=== PATIENT | male | born 1950 | race Caucasian/White ===

== ENCOUNTER → 2024-03-06 15:54 | Outpatient (CLI) | payer MEDICARE, BC, SELFPAY ==
--- NOTE | 2024-03-06 15:54 | DI.US.S_ITS ---
PROCEDURE: US ABD AORTA ANEURYSM SCREEN INDICATIONS: SCREENING; HX SMOKING TECHNIQUE: Real time scanning was performed of the aorta and iliac arteries, with image documentation. COMPARISON: None. FINDINGS: Aorta: The proximal aorta is not seen. Mid-aorta measures 1.8 cm. Distal aortic diameter is 1.8 cm. Iliac arteries: Right common iliac artery measures 1.1 cm. Left common iliac artery measures 1.1 cm. IMPRESSION: Negative for aneurysm. Dictated by: Davidson Ortiz M.D. on 03/06/2024 at 16:28 Approved by: Davidson Ortiz M.D. on 03/06/2024 at 16:28
== END ==
PROVIDERS: Family Provider Family Medicine; PCP Family Medicine; Referring Provider Family Medicine; Visit Provider Family Medicine
DX: Z13.6 Encounter for screening for cardiovascular disorders (principal); Z87.891 Personal history of nicotine dependence
CPT/HCPCS: 76706

== ENCOUNTER → 2024-04-02 12:11 | Outpatient (CLI) | payer MEDICARE, BC, SELFPAY ==
--- NOTE | 2024-04-02 12:13 | DI.RAD.S_ITS ---
PROCEDURE: XR T AND L SPINE 2 TO 3 VIEWS INDICATIONS: Spinal Chord Stimulator lead position check TECHNIQUE: 2 views acquired of the thoracolumbar spine. COMPARISON: [facility] Joseph Turner, CR, XR LUMBAR SPINE 2 OR 3 VIEWS, 03/05/2024, 15:09. FINDINGS: Bones: Stable appearance of long segment spinal fusion of the lumbar spine extending from L2 through S1. No evidence hardware failure or loosening. The lower margins of the fusion hardware is incompletely imaged on the lateral view. Moderate degenerative changes at L1-2 not significantly changed. Stable appearance of multiple arthrodesis screws of the bilateral sacroiliac joints. No acute fractures or dislocations. Visualized inferior ribs appear intact. No suspicious bony lesions. Soft tissues: No suspicious soft tissue calcifications. Neurostimulator device generator projects over the right posterolateral lower back. Electrodes appear intact along their visualized course. Distal tip of spinal cord stimulator terminates superiorly at approximately the inferior endplate of T6. IMPRESSION: Neurostimulator device and leads appear intact along their visualized course with distal tip projecting over the inferior aspect of the T6 vertebral body. Dictated by: Jean Claude Mckeon M.D. on 04/02/2024 at 16:00 Approved by: Jean Claude Mckeon M.D. on 04/02/2024 at 16:04
== END ==
LOC: LAB 12:12
PROVIDERS: Family Provider Family Medicine; PCP Family Medicine; Referring Provider Family Medicine; Visit Provider Family Medicine
DX: Z98.890 Other specified postprocedural states (principal); M54.50 Low back pain, unspecified; G89.29 Other chronic pain
CPT/HCPCS: 72082

== ENCOUNTER 2024-06-03 13:37 | Outpatient (CLI) | payer MEDICARE, BC, SELFPAY ==
[2024-06-03] VITALS (8 sets, daily range): BP systolic 126–161; BP diastolic 60–86; PULSE 53–69; RESP 9–18; TEMP 36.8; O2SAT 96–98
[2024-06-03] MEDS: MIDAZOLAM 2 MG/2 ML VIAL 1 MG IV (13:58)
--- NOTE | 2024-06-03 14:00 | DI.RAD.S_ITS ---
PROCEDURE: PAIN L INTERLAMINAR/CAUDAL INJ INDICATIONS: Caudal LAMBERT COMPARISON: None. FINDINGS: Fluoroscopic spot filming was performed to verify placement of spinal needles at the low midline sacrococcygeal junction area, as technically reported. Appropriate location(s) of the needle tip(s) was confirmed by injection of iodinated contrast. IMPRESSION: Successful intrathecal midline low lumbosacral sacrococcygeal junction access for interlaminar/caudal injection. Dictated by: Jacek Edagr M.D. on 06/03/2024 at 16:44 Approved by: Jcaek Edgar M.D. on 06/03/2024 at 16:45
[2024-06-03] MEDS: iopamidoL 15 ML VIAL 3 ML INJ (14:03)
[2024-06-03] MEDS: DEXAMETHASONE 10 MG/ML VIAL INJ (14:04)
[2024-06-03] MEDS: LIDOCAINE 2% INJ SDV 5ML 5 ML INJ (14:04)
--- NOTE | 2024-06-03 14:41 | P.PCN_ITS ---
Date/Time/Diagnoses Date of procedure: 06/03/24 Time of procedure: 14:00 Procedure Notes Physician: Bernard Morgan Total Fluoroscopy time (seconds): 7 Total sedation minutes: 10 Procedure in detail & Post-procedure care: Caudal Epidural Steroid Injection Indications: Dane is presenting for treatment of lumbar radiculopathy with low back and leg pain. Preoperative diagnosis: Lumbar radiculopathy Postoperative diagnosis: Same Focused Examination: Ax3 Mood and affect are normal Vital Signs: VSS ASA: 2 Consent: Following review of allergies and potential side effects/complications, including, but not necessarily limited to, infection, allergic reaction, local tissue breakdown, stroke, temporary or permanent nerve injury, paralysis, and possible , the patient indicated that they understood and agreed to procee d.? An informed consent document was signed by the patient, witnessed by a nurse and placed in the patient's chart.? Additionally, other treatment options including medications and physical therapy were reviewed with the patient. All questions were answered. Site was then marked. Anesthesia: After review of previous anesthetic history and IV conscious sedation, the patient was deemed safe to proceed with today's procedure with IV conscious sedation. IV sedation was accomplished with midazolam 1 mg administered by the RN after order by Dr. Morgan. Sedation was titrated to patient comfort during the course of the procedure. Patient remained responsive to all verbal commands. Position: Prone Monitoring: NIBP, Pulse oximetry, 3 lead EKG Needle used: 25 gauge, 3.5 in spinal needle Contrast: Isovue 300-M 2mL Injectate: Dexamethasone 10 mg with 1% lidocaine 2 mL and normal saline 2 mL Technique: The skin was prepped with chloraprep and then draped in a sterile fashion. Time out was performed as per protocol. Oxygen applied via NC. The entry point for entering/approaching the epidural space by a caudal approach through the sacral hiatus was identified. Skin and subcutaneous structures of the needle entry site was then infiltrated with 3 mL of lidocaine 1%. Under AP and lateral control, the needle was guided through the sacral hiatus to the S3 level. Contrast was then injected and the spread was consistent with the epidural space. There was no evidence for intravascular or intrathecal uptake. After negative aspiration, the above-mentioned injectate was then slowly administered and the needle withdrawn. The patient expressed no unusual discomfort or paresthesias during needle positioning or injection. Band-Aids applied to injection sites. EBL: less than 1 ml Complications: None Post Procedure: Patient was taken to the recovery and monitored. The patient was provided a Pain Log to continue to record the patient's response to the target- specific procedure prior to the patient's follow-up visit with the referring physician. Patient was stable upon discharge. Detailed post procedure instructi ons were provided. Patient was asked to call in the event of worsening pain, fever, weakness, numbness or bladder or bowel incontinence.
== END 2024-06-03 14:40 | disposition home or self-care (01) ==
LOC: RAD 13:37
PROVIDERS: Family Provider Family Medicine; PCP Family Medicine; Referring Provider Anesthesiology; Visit Provider Anesthesiology
DX: M54.16 Radiculopathy, lumbar region (principal)
CPT/HCPCS: 62323; 99152; J1100; J2250

== ENCOUNTER → 2024-06-17 09:32 | Outpatient (CLI) | payer MEDICARE, BC, SELFPAY ==
[2024-06-17 10:33] LABS: Add Manual Diff / Slide Review NO; Basophils Absolute Auto 0 /uL (0-100); Basophils Percent Auto 0.4 % (0-2); Eosinophils Absolute Auto 200 /uL (0-450); Hematocrit 40.5 % (41-53); Hemoglobin 13.8 g/dL (13.5-17.5); Lymphocytes Absolute Auto 1100 /uL (1100-4500); Lymphocytes Percent Auto 11.2 % (25-40); Mean Corpuscular HGB Conc 34.1 % (30-36); Mean Corpuscular Hemoglobin 31.4 PG (26-34); Mean Corpuscular Volume 92.3 fL (80-100); Monocytes Absolute Auto 700 /uL (0-900); Monocytes Percent Auto 7.6 % (3-14); Neutrophils Absolute Auto 7600 /uL (1500-7000); Neutrophils Percent Auto 78.8 % (50-75); Platelet Count 310 X10^3/uL (150-400); Red Blood Cell Count 4.39 X10^6/uL (4.5-5.9); Red Cell Distribution Width 13.6 % (11.6-14.8); White Blood Cell Count 9.6 X10^3/uL (4.5-11.0)
[2024-06-17 11:05] LABS: Alanine Aminotransferase 34 IU/L (<50); Albumin Globulin Ratio 1.5 (1.0-2.8); Alkaline Phosphatase 59 U/L (38-126); Aspartate Aminotransferase 34 IU/L (17-59); BUN Creatinine Ratio 22.9 (6-22); Bilirubin Total 0.6 mg/dL (0.2-1.3); Blood Urea Nitrogen 25 mg/dL (9-20); Calcium 9.5 mg/dL (8.4-10.2); Carbon Dioxide 30 mmol/L (22-32); Chloride 101 mmol/L (98-107); Cholesterol 196 mg/dL (140-199); Estimated Glomerular Filt Rate > 60 mL/min (>60); Globulin 2.6 g/dL (1.7-4.1); Glucose 107 mg/dL (80-110); HDL Cholesterol 47 mg/dL (40-60); HEMOLYSIS < 15 (0-50); LDL Cholesterol Calculated 131 mg/dL (<100); Potassium 4.8 mmol/L (3.4-5.1); Sodium 136 mmol/L (137-145); Total Protein 6.6 g/dL (6.3-8.2); Triglycerides 92 mg/dL (35-150)
== END ==
PROVIDERS: Family Provider Family Medicine; PCP Family Medicine; Referring Provider Family Medicine; Visit Provider Family Medicine
DX: M51.9 Unspecified thoracic, thoracolumbar and lumbosacral intervertebral disc disorder (principal); M48.9 Spondylopathy, unspecified; I10 Essential (primary) hypertension; Z79.1 Long term (current) use of non-steroidal anti-inflammatories (NSAID)
CPT/HCPCS: 36415; 80053; 80061; 85025

== ENCOUNTER 2024-09-15 14:30 | Outpatient (RCR) | payer MEDICARE, BC, SELFPAY ==
--- NOTE | 2024-03-06 18:01 | PT.OIE ---
Current Diagnoses Other chronic pain (03/06/24) Low back pain, unspecified (03/06/24) Neuralgia and neuritis, unspecified (03/06/24) Other specified postprocedural states (03/06/24) Visit Care Team Role Provider Type Francoise Morrissey DO Attending Provider Physician Family Provider Primary Care Provider Referring Provider Specialty: Family Practice Address: [address] [place] [address], [address], [facility] Email: [email or web address] Physical Therapy Initial Evaluation PT-OP-A Visit Information Start: 03/05/24 16:26 Freq: Status: Active Protocol: Document 03/06/24 11:18 LRN (Rec: 03/06/24 12:21 LRN [id number]) Out-Patient Physical Therapy Visit Information Visit Information Visit Type Initial Evaluation Visit Start Time 11:18 Visit Stop Time 12:13 Visit Number 1 Evaluation Information Evaluation Date 03/06/24 Precautions Precautions TAPE ALLERGY. No Bending Lifting Twisting (Pt told w/p surgery), PMH: L hip anterior YANELY. PT-OP-B Current Condition Start: 03/05/24 16:26 Freq: Status: Active Protocol: Document 03/06/24 11:18 LRN (Rec: 03/06/24 12:21 LRN [id number]) Current Condition History of Current Condition Onset Date 10/2023 Current Complaints SI pain, lateral hip and posterior hip/pelvic pain History of Current Condition Pt reportedly has had a sequence of surgeries in [place], starting 8 yrs ago and hasn't been able to get back into condition since. Last 2 surgeries were SI locks/ fusions with pinnings R side Sep 2023, L side 12/2023. Has pain on both sides different than prior to surgery. Expected outcome was relief of pain with transition (most standing up). His complaints now are pain that wakes him up in the morning, lateral hip and lateral/posterior pelvic pain. LBP starts later in the day. Pt moved to [facility] Aug 2023. 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 Prior Treatments and Tests Post surgical rehab in [place] after each SI lock/ fusion surgeries, both inpt and outpt rehab. Treatment Goals Patient/Caregiver Goals Pt goal: - core and gluteal strengthening and balance training. Be able to lift from 30-45 lbs. - Sit for more than 10' due to back (tight hamstrings). - independent in HEP. Current Functional Impairments (Reported) Functional Limitations- ADL's Stationary bike 6x/week - 15'/ day. 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 PT-OP-C Subjective Start: 03/05/24 16:26 Freq: Status: Active Protocol: Document 03/06/24 11:18 LRN (Rec: 03/06/24 12:21 LRN [id number]) Patient Questionnaires Foot & Ankle Ability Measure- ADL and Sports FAAM-ADL Score 47 FAAM-ADL Impairment 40 to 59% Impaired (Score 33- 49) FAAM-Sport Score 5 FAAM-Sport Impairment 80 to 99% Impaired (Score 1-5) Lower Extremity Functional Scale LEFS Score 32 LEFS Impairment 40 to 59% Impaired (Score 32- 47) Oswestry Low Back Index Oswestry Score 24 Oswestry Impairment 20 to 39% Impaired (Score 20- 39) OP-PT Pain Assessment Pain Assessment Grid Paper Pain Assessment Grid Completed Yes Location Low back Pain Location Details Low Back Intensity 7 Scale Used Numeric (0 - 10) Description Aching,Dull Frequency Constant Pain Duration Pain increases throughout the day Pain Aggravating Factors Changing Position,Sitting Other Pain Aggravating Factors Descending of stair increases pain Pain Alleviating Factors Cold,Heat,Medication,Standing PT-OP-J Posture/Palpation/Skin Start: 03/05/24 16:26 Freq: Status: Active Protocol: Document 03/06/24 11:18 LRN (Rec: 03/06/24 12:21 LRN [id number]) Posture Evaluation Position Standing Head/C-Spine Posture Forward Head T-Spine Posture Increased Kyphosis L-Spine Posture Flattened Shoulder Posture (R) Elevated Comments Posture Comments Head shifted left, R shoulder elevated, protruding R ACJ, very slight anterior pelvic tilt, wide stance. Palpation Assessment Location Low back Palpation Location L paraspinasl ~T6-T12 Palpation Findings Muscle Guarding PT-OP-K Range of Motion Start: 03/05/24 16:26 Freq: Status: Active Protocol: Document 03/06/24 11:18 LRN (Rec: 03/06/24 12:21 LRN [id number]) Lumbar Spine Range of Motion Lumbar Spine Active Degrees Testing Position Standing Flexion 60 Comments Precautions: No Bending, Lifting, Twisting. Hip Goniometric Range of Motion Hip Right Active Straight Leg Raise 75 Extension 2 Left Active Straight Leg Raise 75 Extension 0 PT-OP-M Strength Start: 03/05/24 16:26 Freq: Status: Active Protocol: Document 03/06/24 11:18 LRN (Rec: 03/06/24 12:21 LRN [id number]) Trunk Strength Trunk Manual Muscle Testing Core Stabilization Mild to moderate loss of core stability as noted with MMT of LE's (primarily with flex and rotation). Hip Strength Hip Manual Muscle Testing Right Abduction 4 Good Adduction 2- Poor- Comments Hip strength is 5/5 except as indicated above. Left Flexion (L2) 4+ Good+ Adduction 2 Poor External Rotation 3 Fair Internal Rotation 3 Fair Comments Hip strength is 5/5 except as indicated above. PT-OP-Q Treatments Start: 03/05/24 16:26 Freq: Status: Active Protocol: Document 03/06/24 11:18 LRN (Rec: 03/06/24 12:21 LRN [id number]) Self-Care/Home Management Treatment Education Other Education Discussed results of evaluation, and plan of care ( POC) with pt. Discussed extensively goals, anatomy and expectations of therapy (14 minutes), Discussed attendance/cx/dns policy. Pt agreeable to goals, attendance/cx/dns policy and POC. PT-OP-T Assessment and Plan Start: 03/05/24 16:26 Freq: Status: Active Protocol: Document 03/06/24 11:18 LRN (Rec: 03/06/24 12:21 LRN [id number]) Physical Therapy Assessment Rehab Potential Rehabilitation Potential Good Evaluation Complexity Number of Personal Factors/Comorbidities 3 or More Number of Body Systems Impaired 4 or More Clinical Presentation at Evaluation Evolving Impairments Impairments Activity Tolerance,Balance, Functional Activities,Gait, Pain,Posture,ROM,Soft Tissue Mobility,Strength,Transfers Goals Three Impairment Decreased functional strength for performing home activities of lifting. Short Term Goal (STG) Pt will be educated in proper body mechanics for DLS and Mtz to Safe Movement. STG Duration 4 wks-04/03/24 Recycling Coordinator Goal (LTG) Pt will be able to tolerate lifting 30#-45# with modification of lifting technique for functional activities at home. LTG Duration 12 wks-05/31/24 Two Impairment Decreased sitting tolerance due to pain Impairment Can't sit for more than 10' due to back. Short Term Goal (STG) Improve LE mobility (tight hamstrings) and if tolerated neural mobility. STG Duration 4 wks-04/03/24 Recycling Coordinator Goal (LTG) Pt will be able to improve functional sitting of 30-60' with modification of sitting or performing sitting mobility ex's to decrease pain. LTG Duration 12 wks-05/31/24 One Impairment Lacks appropriate self care HEP Short Term Goal (STG) Will be instructed in HEP for balance and nelda core strengthening ex's to support therapy services provided in clinic. STG Duration 4 wks-04/03/24 Recycling Coordinator Goal (LTG) Pt will be independent with HEP of general LE strengthening and hip ROM ex's with the goal of improving pt 's perception of safety with gait. LTG Duration 12 wks-05/31/24 Assessment Summary Assessment Pt is a 73 yo male s/p franci SI fusion/lock (R-10/19, L-01/18) with pain in franci hips worse first thing in the morning; franci LBP (sacral level) that worsens as day progresses, bilateral ankle pain, decreased franci hip mobility, areas of weakness of the hips and core weakness demonstrated when testing LE strength, postural changes (straightened lumbosacral region), and decrease in his activity level with a feeling of decreased balance and safety with gait because of weakness and pain. Pt's franci foot neuropathy, R drop foot, and LE weakness is expected to complicate and possibly prolong his rehabilitation. The patient will benefit from skilled physcial therapy to work towards achieving the above stated goals. Physical Therapy Plan Frequency and Duration Frequency of Treatment 2x/Week Duration of treatment (weeks) 12 Plan of Care Start Date 03/06/24 Plan of Care End Date 05/31/24 Therapeutic Interventions Therapeutic Interventions Balance Training,Gait Training ,Home Exercise Program,Manual Therapy,Self-Care/Home Management,Soft Tissue Mobilization,Therapeutic Activities,Therapeutic Exercises Modalities Cold Pack/Ice Massage,Hot Packs Next Visit Focus/Plan Next Note Type Treatment Note Next Visit Plan POC: Decrease pain franci LB/ hips with Core/hip stabilization/strengthening; painfree hip mobility ex's; LB /hip ST;, transfer training ( log roll, hip hinging); self pain mgmt (MH, massage); educ posturing nighttime, on stationary bike & ADLs; general conditioning if tolerated; and improve balance . Next: See Precautions. Assess sensation & painfree hip PROM & balance (SLS, Greene and/or Tinetti), review of pt 's current yoga home program. Education in [place] to Safe Movement & proper body mechanics for ADLS. Exer: Improve Hip Ext ROM, core nelda abdominal/SB/Rot strength & LE: L flex/ER/IR, franci AD, R AB. Functional strengthening: lifting
--- NOTE | 2024-03-06 18:02 | PT.OPPOC ---
Physical, Occupational & Speech Therapy At [facility] Current Diagnoses Other chronic pain (03/06/24) Low back pain, unspecified (03/06/24) Neuralgia and neuritis, unspecified (03/06/24) Other specified postprocedural states (03/06/24) Visit Care Team Role Provider Type Francoise Morrissey DO Attending Provider Physician Family Provider Primary Care Provider Referring Provider Specialty: Family Practice Address: [address] [place] [address], [address], [facility] Email: [email or web address] Plan Of Care PT-OP-T Assessment and Plan Start: 03/05/24 16:26 Freq: Status: Active Protocol: Document 03/06/24 11:18 LRN (Rec: 03/06/24 12:21 LRN [id number]) Physical Therapy Assessment Rehab Potential Rehabilitation Potential Good Evaluation Complexity Number of Personal Factors/Comorbidities 3 or More Number of Body Systems Impaired 4 or More Clinical Presentation at Evaluation Evolving Impairments Impairments Activity Tolerance,Balance, Functional Activities,Gait, Pain,Posture,ROM,Soft Tissue Mobility,Strength,Transfers Goals Three Impairment Decreased functional strength for performing home activities of lifting. Short Term Goal (STG) Pt will be educated in proper body mechanics for DLS and Mtz to Safe Movement. STG Duration 4 wks-04/03/24 Residential Goal (LTG) Pt will be able to tolerate lifting 30#-45# with modification of lifting technique for functional activities at home. LTG Duration 12 wks-05/31/24 Two Impairment Decreased sitting tolerance due to pain Impairment Can't sit for more than 10' due to back. Short Term Goal (STG) Improve LE mobility (tight hamstrings) and if tolerated neural mobility. STG Duration 4 wks-04/03/24 Residential Goal (LTG) Pt will be able to improve functional sitting of 30-60' with modification of sitting or performing sitting mobility ex's to decrease pain. LTG Duration 12 wks-05/31/24 One Impairment Lacks appropriate self care HEP Short Term Goal (STG) Will be instructed in HEP for balance and nelda core strengthening ex's to support therapy services provided in clinic. STG Duration 4 wks-04/03/24 Residential Goal (LTG) Pt will be independent with HEP of general LE strengthening and hip ROM ex's with the goal of improving pt 's perception of safety with gait. LTG Duration 12 wks-05/31/24 Assessment Summary Assessment Pt is a 73 yo male s/p franci SI fusion/lock (R-10/19, L-01/18) with pain in franci hips worse first thing in the morning; franci LBP (sacral level) that worsens as day progresses, bilateral ankle pain, decreased franci hip mobility, areas of weakness of the hips and core weakness demonstrated when testing LE strength, postural changes (straightened lumbosacral region), and decrease in his activity level with a feeling of decreased balance and safety with gait because of weakness and pain. Pt's franci foot neuropathy, R drop foot, and LE weakness is expected to complicate and possibly prolong his rehabilitation. The patient will benefit from skilled physcial therapy to work towards achieving the above stated goals. Physical Therapy Plan Frequency and Duration Frequency of Treatment 2x/Week Duration of treatment (weeks) 12 Plan of Care Start Date 03/06/24 Plan of Care End Date 05/31/24 Therapeutic Interventions Therapeutic Interventions Balance Training,Gait Training ,Home Exercise Program,Manual Therapy,Self-Care/Home Management,Soft Tissue Mobilization,Therapeutic Activities,Therapeutic Exercises Modalities Cold Pack/Ice Massage,Hot Packs Next Visit Focus/Plan Next Note Type Treatment Note Next Visit Plan POC: Decrease pain franci LB/ hips with Core/hip stabilization/strengthening; painfree hip mobility ex's; LB /hip ST;, transfer training ( log roll, hip hinging); self pain mgmt (MH, massage); educ posturing nighttime, on stationary bike & ADLs; general conditioning if tolerated; and improve balance . Next: See Precautions. Assess sensation & painfree hip PROM & balance (SLS, Greene and/or Tinetti), review of pt 's current yoga home program. Education in [place] to Safe Movement & proper body mechanics for ADLS. Exer: Improve Hip Ext ROM, core nelda abdominal/SB/Rot strength & LE: L flex/ER/IR, franci AD, R AB. Functional strengthening: lifting Plan of Care Dates Plan of Care Start Date 03/06/24 Plan of Care End Date 05/31/24 Electronically Signed by: Anastacia Walker, PT 03/09/24 1002 If you are in agreement with this Plan of Care, please return a signed and dated copy. I have reviewed this Plan of Care and certify that the skilled therapy services above are required to meet the patient?s needs. Physician Signature Date Printed Name and Credentials Clinical Instructor Signature Printed Name and Credentials
--- NOTE | 2024-03-09 15:15 | PT.OTN ---
Current Diagnoses Other chronic pain (03/09/24) Low back pain, unspecified (03/09/24) Neuralgia and neuritis, unspecified (03/09/24) Other specified postprocedural states (03/09/24) Physical Therapy Treatment Note PT-OP-A Visit Information Start: 03/05/24 16:26 Freq: Status: Active Protocol: Document 03/09/24 14:35 SP (Rec: 03/09/24 15:28 SP [id number]) Out-Patient Physical Therapy Visit Information Visit Information Visit Type Treatment Note Visit Start Time 14:35 Visit Stop Time 15:15 Visit Number 1 Evaluation Information Evaluation Date 03/06/24 Precautions Precautions TAPE ALLERGY. No Bending Lifting Twisting (Pt told w/p surgery), PMH: L hip anterior YANELY. PT-OP-B Current Condition Start: 03/05/24 16:26 Freq: Status: Active Protocol: Document 03/06/24 11:18 LRN (Rec: 03/06/24 12:21 LRN [id number]) Current Condition History of Current Condition Onset Date 10/2023 Current Complaints SI pain, lateral hip and posterior hip/pelvic pain History of Current Condition Pt reportedly has had a sequence of surgeries in [place], starting 8 yrs ago and hasn't been able to get back into condition since. Last 2 surgeries were SI locks/ fusions with pinnings R side Sep 2023, L side 12/2023. Has pain on both sides different than prior to surgery. Expected outcome was relief of pain with transition (most standing up). His complaints now are pain that wakes him up in the morning, lateral hip and lateral/posterior pelvic pain. LBP starts later in the day. 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 Treatment Goals Patient/Caregiver Goals Pt goal: - core and gluteal strengthening and balance training. Be able to lift from 30-45 lbs. - Sit for more than 10' due to back (tight hamstrings). - independent in HEP. Current Functional Impairments (Reported) Functional Limitations- ADL's Stationary bike 6x/week - 15'/ day. 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 PT-OP-C Subjective Start: 03/05/24 16:26 Freq: Status: Active Protocol: Document 03/09/24 14:35 SP (Rec: 03/09/24 15:28 SP [id number]) OP-PT Subjective Patient Comments Patient Comments Pt reports noted balance better when last on his boat but overall not great. PT-OP-J Posture/Palpation/Skin Start: 03/05/24 16:26 Freq: Status: Active Protocol: Document 03/06/24 11:18 LRN (Rec: 03/06/24 12:21 LRN [id number]) Posture Evaluation Position Standing Head/C-Spine Posture Forward Head T-Spine Posture Increased Kyphosis L-Spine Posture Flattened Shoulder Posture (R) Elevated Comments Posture Comments Head shifted left, R shoulder elevated, protruding R ACJ, very slight anterior pelvic tilt, wide stance. Palpation Assessment Location Low back Palpation Location L paraspinasl ~T6-T12 Palpation Findings Muscle Guarding PT-OP-K Range of Motion Start: 03/05/24 16:26 Freq: Status: Active Protocol: Document 03/06/24 11:18 LRN (Rec: 03/06/24 12:21 LRN [id number]) Lumbar Spine Range of Motion Lumbar Spine Active Degrees Testing Position Standing Flexion 60 Comments Precautions: No Bending, Lifting, Twisting. Hip Goniometric Range of Motion Hip Right Active Straight Leg Raise 75 Extension 2 Left Active Straight Leg Raise 75 Extension 0 PT-OP-M Strength Start: 03/05/24 16:26 Freq: Status: Active Protocol: Document 03/06/24 11:18 LRN (Rec: 03/06/24 12:21 LRN [id number]) Trunk Strength Trunk Manual Muscle Testing Core Stabilization Mild to moderate loss of core stability as noted with MMT of LE's (primarily with flex and rotation). Hip Strength Hip Manual Muscle Testing Right Abduction 4 Good Adduction 2- Poor- Comments Hip strength is 5/5 except as indicated above. Left Flexion (L2) 4+ Good+ Adduction 2 Poor External Rotation 3 Fair Internal Rotation 3 Fair Comments Hip strength is 5/5 except as indicated above. PT-OP-Q Treatments Start: 03/05/24 16:26 Freq: Status: Active Protocol: Document 03/09/24 14:35 SP (Rec: 03/09/24 15:28 SP [id number]) Cardio Equipment Recumbent Bicycle Duration (Minutes) 5 Resistance 6- self selected Seat Position 8 Other 53 RPMs Therapeutic Exercises Supine Exercises elongated stretch Supine Exercise Name self long axis stretch Comments good form/response. bug Supine Exercise Name added UE ext (his past HEP bicycle) Reps/Minutes 2x10 Comments occ hip flexor over tightness, cued allow PPT & TA while breath- ok bridge /c hip abd Supine Exercise Name Progressed self HEP- declined HO Resistance TB #3 green Reps/Minutes 2x10 (hip abd) Comments cued slower pacing allow maintain bridge, feet closer no HS recruitment Prone Exercises PRERNA Prone Exercise Name self HEP reviewed Reps/Minutes 30 sec Comments demos tall on elbows to elongate spine pnfree range Other Exercises cat camel Other Exercise Name self HEP reviewed Side bilateral Reps/Minutes x10 each Comments f/b LS allowable, added lateral SB tilt tail wag- pnfree child's pose Other Exercise Name self HEP review Reps/Minutes 30 sec Neuro Re-Education Treatment Balance Activities Tinyanci Details Comments Discontinuous and sway x1 during 360 deg turn L R allan. CYRIL Details 50 Self-Care/Home Management Treatment Education Other Education SELF HEP discussed: push ups off knees, bird dog, child's pose, cat cow, up dog very small range, bridges, crunches , clam shell L weak, hip abd, supine bicycle, prone on elbows, lift 30lbs, STS. Short time spent use pillows under prox thighs supine and between BLEs and behind back with head/neck neutral retracted for spinal support with report felt nice will try home. PT-OP-T Assessment and Plan Start: 03/05/24 16:26 Freq: Status: Active Protocol: Document 03/09/24 14:35 SP (Rec: 03/09/24 15:28 SP [id number]) Physical Therapy Assessment Goals Three Impairment Decreased functional strength for performing home activities of lifting. Impairment Pt goal: - core and gluteal strength and balance. Be able to lift from 30 to 45. - Can't sit for more than 10' due to back (tight hamstrings) . - independent in HEP. Short Term Goal (STG) Pt will be educated in proper body mechanics for DLS and Mtz to Safe Movement. STG Duration 4 wks-04/03/24 Library Media Specialist Goal (LTG) Pt will be able to tolerate lifting 30#-45# with modification of lifting technique for functional activities at home. LTG Duration 12 wks-05/31/24 Two Impairment Decreased sitting tolerance due to pain Impairment Can't sit for more than 10' due to back. Short Term Goal (STG) Improve LE mobility (tight hamstrings) and if tolerated neural mobility. STG Duration 4 wks-04/03/24 Detention Goal (LTG) Pt will be able to improve functional sitting of 30-60' with modification of sitting or performing sitting mobility ex's to decrease pain. LTG Duration 12 wks-05/31/24 One Impairment Lacks appropriate self care HEP Impairment Pt goal: - core and gluteal strength and balance. Be able to lift from 30 to 45. - Can't sit for more than 10' due to back (tight hamstrings) . - independent in HEP. Short Term Goal (STG) Will be instructed in HEP for balance and nelda core strengthening ex's to support therapy services provided in clinic. 03/09/24: NAM 50/56, TInetti 14/16. STG Duration 4 wks-04/03/24 Detention Goal (LTG) Pt will be independent with HEP of general LE strengthening and hip ROM ex's with the goal of improving pt 's perception of safety with gait. LTG Duration 12 wks-05/31/24 Assessment Summary Assessment Pt need for use of external AFO, slight unsteady during NAM tandem/SLS and Tinetti 360 pivot turn with decreased scoring. Pt responded well to cues for foot closer positioning during bridge and progression added TB hip abd, no pain but need for slower pacing maintain bridge. Pt does demo limited lower lumbar mobility due to past fusion but has come up with good core progression. Would benefit from cuing education on proper form, slower pacing to allow TA and spinal support. Physical Therapy Plan Frequency and Duration Frequency of Treatment 2x/Week Duration of treatment (weeks) 12 Plan of Care Start Date 03/06/24 Plan of Care End Date 05/31/24 Therapeutic Interventions Therapeutic Interventions Balance Training,Gait Training ,Home Exercise Program,Manual Therapy,Self-Care/Home Management,Soft Tissue Mobilization,Therapeutic Activities,Therapeutic Exercises Modalities Cold Pack/Ice Massage,Hot Packs Next Visit Focus/Plan Next Note Type Treatment Note Next Visit Plan Assess added TB abd to bridge (declined HO) and bug. Next tx: ask use pillows and add stretching HS /c AP and gely stretch, semi tandem shld ext/pull downs, hip abd side/stand, functional balance . POC: Decrease pain franci LB/ hips with Core/hip stabilization/strengthening; painfree hip mobility ex's; LB /hip ST;, transfer training ( log roll, hip hinging); self pain mgmt (MH, massage); educ posturing nighttime, on stationary bike & ADLs; general conditioning if tolerated; and improve balance . Next: See Precautions. Assess sensation & painfree hip PROM & balance (SLS, Nam and/or Tinetti), review of pt 's current yoga home program. Education in [place] to Safe Movement & proper body mechanics for ADLS. Exer: Improve Hip Ext ROM, core nelda abdominal/SB/Rot strength & LE: L flex/ER/IR, franci AD, R AB. Functional strengthening: lifting
--- NOTE | 2024-03-16 10:31 | PT.OTN ---
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 No Bending Lifting Twisting (Pt told w/p surgery), PMH: L hip anterior YANELY. PT-OP-B Current Condition Start: 03/05/24 16:26 Freq: Status: Active Protocol: Document 03/06/24 11:18 LRN (Rec: 03/06/24 12:21 LRN [id number]) Current Condition History of Current Condition Onset Date 10/2023 Current Complaints SI pain, lateral hip and posterior hip/pelvic pain History of Current Condition Pt reportedly has had a sequence of surgeries in [place], starting 8 yrs ago and hasn't been able to get back into condition since. Last 2 surgeries were SI locks/ fusions with pinnings R side Sep 2023, L side 12/2023. Has pain on both sides different than prior to surgery. Expected outcome was relief of pain with transition (most standing up). His complaints now are pain that wakes him up in the morning, lateral hip and lateral/posterior pelvic pain. LBP starts later in the day. Pt moved to [facility] Aug 2023. 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 Prior Treatments and Tests Post surgical rehab in [place] after each SI lock/ fusion surgeries, both inpt and outpt rehab. Treatment Goals Patient/Caregiver Goals Pt goal: - core and gluteal strengthening and balance training. Be able to lift from 30-45 lbs. - Sit for more than 10' due to back (tight hamstrings). - independent in HEP. Current Functional Impairments (Reported) Functional Limitations- ADL's Stationary bike 6x/week - 15'/ day. 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 PT-OP-C Subjective Start: 03/05/24 16:26 Freq: Status: Active Protocol: Document 03/16/24 09:51 SP (Rec: 03/16/24 10:33 SP [id number]) OP-PT Subjective Patient Comments Patient Comments Pt reported had a session to reprogram his spinal stimulator (sensor sends signal and received back with readjusting firing compared to previous program) with [employer] in town this am and states usually takes body time to adjust to see updated changes and benefits. He reports use of band with HEP made a signficant difference in range in hips with bridge and hip abd band. Would like to continue how to progress strength and incorporate balance. PT-OP-J Posture/Palpation/Skin Start: 03/05/24 16:26 Freq: Status: Active Protocol: Document 03/06/24 11:18 LRN (Rec: 03/06/24 12:21 LRN [id number]) Posture Evaluation Position Standing Head/C-Spine Posture Forward Head T-Spine Posture Increased Kyphosis L-Spine Posture Flattened Shoulder Posture (R) Elevated Comments Posture Comments Head shifted left, R shoulder elevated, protruding R ACJ, very slight anterior pelvic tilt, wide stance. Palpation Assessment Location Low back Palpation Location L paraspinasl ~T6-T12 Palpation Findings Muscle Guarding PT-OP-K Range of Motion Start: 03/05/24 16:26 Freq: Status: Active Protocol: Document 03/06/24 11:18 LRN (Rec: 03/06/24 12:21 LRN [id number]) Lumbar Spine Range of Motion Lumbar Spine Active Degrees Testing Position Standing Flexion 60 Comments Precautions: No Bending, Lifting, Twisting. Hip Goniometric Range of Motion Hip Right Active Straight Leg Raise 75 Extension 2 Left Active Straight Leg Raise 75 Extension 0 PT-OP-M Strength Start: 03/05/24 16:26 Freq: Status: Active Protocol: Document 03/06/24 11:18 LRN (Rec: 03/06/24 12:21 LRN [id number]) Trunk Strength Trunk Manual Muscle Testing Core Stabilization Mild to moderate loss of core stability as noted with MMT of LE's (primarily with flex and rotation). Hip Strength Hip Manual Muscle Testing Right Abduction 4 Good Adduction 2- Poor- Comments Hip strength is 5/5 except as indicated above. Left Flexion (L2) 4+ Good+ Adduction 2 Poor External Rotation 3 Fair Internal Rotation 3 Fair Comments Hip strength is 5/5 except as indicated above. PT-OP-Q Treatments Start: 03/05/24 16:26 Freq: Status: Active Protocol: Document 03/16/24 09:51 SP (Rec: 03/16/24 10:33 SP [id number]) Cardio Equipment Recumbent Bicycle Duration (Minutes) 8 Resistance 7 self selected Seat Position 8 Other 53 RPMs Therapeutic Exercises Supine Exercises elongated stretch Supine Exercise Name self long axis LE stretch Reps/Minutes pre and between sets ther ex needed Comments good form/response. bug Supine Exercise Name HEP reviewed (progressed from his bicycle) declined HO Reps/Minutes 2x10 Comments good pacing, TA fac/PPT reported bridge /c hip abd Supine Exercise Name hip abd bridge review- declined HO Resistance TB #3 green at thighs Reps/Minutes 2x10 (hip abd) Comments cued feet little closer and level pelvis, good slow pacing Standing Exercises repeated glut drive step up Standing Exercise Name added to HEP Side bilateral Resistance 6 step Equipment Used light opp UE rail support 3-4 # pressure Reps/Minutes 2x10 Comments no momentum L>R, improved quad , glut sreng resisted side stepping Standing Exercise Name added to HEP Side bilateral Resistance TB #2 aqua at Reps/Minutes 15 ft x2 laps Comments cued tall posture soft TKE and glut engage over LLE bottoms up Standing Exercise Name HS stretch- added to HEP pre lift activities Resistance BUE on 12 box Reps/Minutes 20 SH x3 reps Comments squat pos /c straight back, knee ext- good PT-OP-T Assessment and Plan Start: 03/05/24 16:26 Freq: Status: Active Protocol: Document 03/16/24 09:51 SP (Rec: 03/16/24 10:33 SP [id number]) Physical Therapy Assessment Goals Three Impairment Decreased functional strength for performing home activities of lifting. Impairment Pt goal: - core and gluteal strength and balance. Be able to lift from 30 to 45. - Can't sit for more than 10' due to back (tight hamstrings) . - independent in HEP. Short Term Goal (STG) Pt will be educated in proper body mechanics for DLS and Mtz to Safe Movement. STG Duration 4 wks-04/03/24 [facility] Goal (LTG) Pt will be able to tolerate lifting 30#-45# with modification of lifting technique for functional activities at home. 03/16/24: incorporated straight back hip hinge in mirror deadlift 20# (2-10# DB). LTG Duration 12 wks-05/31/24 progressing Two Impairment Decreased sitting tolerance due to pain Impairment Can't sit for more than 10' due to back. Short Term Goal (STG) Improve LE mobility (tight hamstrings) and if tolerated neural mobility. 03/16/24: added standing bottoms up active HS stretch ( hands on step, knee ext). STG Duration 4 wks-04/03/24 progressing [facility] Goal (LTG) Pt will be able to improve functional sitting of 30-60' with modification of sitting or performing sitting mobility ex's to decrease pain. LTG Duration 12 wks-05/31/24 One Impairment Lacks appropriate self care HEP Impairment Pt goal: - core and gluteal strength and balance. Be able to lift from 30 to 45. - Can't sit for more than 10' due to back (tight hamstrings) . - independent in HEP. Short Term Goal (STG) Will be instructed in HEP for balance and nelda core strengthening ex's to support therapy services provided in clinic. 03/09/24: NAM 50/56, TInetti 14/16. 03/16/24: reviewed deadbug, bridge /c hip abd #3 TB, resisted lateral stepping, repeated step up- L>R glut med /pirifor weakness. STG Duration 4 wks-04/03/24 progressing [facility] Goal (LTG) Pt will be independent with HEP of general LE strengthening and hip ROM ex's with the goal of improving pt 's perception of safety with gait. 03/16/24: progressing:bridge /c hip abd #3 TB, resisted lateral stepping, repeated step up- L>R glut med/pirifor weakness. LTG Duration 12 wks-05/31/24 progressing Assessment Summary Assessment Pt good feedback response to progressed resistance to hip abd and glut this tx for carryover support standing activities. Cues for straight back during deadlift and added active HS stretch bottoms up knowing likes to do things more standing activity. Physical Therapy Plan Frequency and Duration Frequency of Treatment 2x/Week Duration of treatment (weeks) 12 Plan of Care Start Date 03/06/24 Plan of Care End Date 05/31/24 Therapeutic Interventions Therapeutic Interventions Balance Training,Gait Training ,Home Exercise Program,Manual Therapy,Self-Care/Home Management,Soft Tissue Mobilization,Therapeutic Activities,Therapeutic Exercises Modalities Cold Pack/Ice Massage,Hot Packs Next Visit Focus/Plan Next Note Type Treatment Note Next Visit Plan Assess HEP: added step ups, resisted side stepping, bottoms up HS stretch. Next: Education in [place] to Safe Movement & proper body mechanics for ADLS. Ask how use pillows sleeping going and add stretching HS /c AP, gely stretch, semi tandem shld ext/pull downs, functional balance. POC: Decrease pain franci LB/hips with Core/hip stabilization/ strengthening; painfree hip mobility ex's; LB/hip ST;, transfer training (log roll, hip hinging); self pain mgmt ( MH, massage); on stationary bike & ADLs; general conditioning if tolerated; and improve balance. Next: See Precautions. Assess sensation & painfree hip PROM & balance. Exer: Improve Hip Ext ROM, core nelda abdominal/SB/Rot strength & LE: L flex/ER/IR, franci AD, R AB. Functional strengthening: lifting
--- NOTE | 2024-03-31 10:11 | PT.OTN ---
Current Diagnoses Other chronic pain (03/31/24) Low back pain, unspecified (03/31/24) Neuralgia and neuritis, unspecified (03/31/24) Other specified postprocedural states (03/31/24) Physical Therapy Treatment Note PT-OP-A Visit Information Start: 03/05/24 16:26 Freq: Status: Active Protocol: Document 03/31/24 09:10 LRN (Rec: 03/31/24 10:10 LRN [id number]) Out-Patient Physical Therapy Visit Information Visit Information Visit Type Treatment Note Visit Start Time 09:10 Visit Stop Time 09:54 Visit Number 4 Evaluation Information Evaluation Date 03/06/24 PT-OP-B Current Condition Start: 03/05/24 16:26 Freq: Status: Active Protocol: Document 03/06/24 11:18 LRN (Rec: 03/06/24 12:21 LRN [id number]) Current Condition History of Current Condition Onset Date 10/2023 Current Complaints SI pain, lateral hip and posterior hip/pelvic pain History of Current Condition Pt reportedly has had a sequence of surgeries in [place], starting 8 yrs ago and hasn't been able to get back into condition since. Last 2 surgeries were SI locks/ fusions with pinnings R side Sep 2023, L side 12/2023. Has pain on both sides different than prior to surgery. Expected outcome was relief of pain with transition (most standing up). His complaints now are pain that wakes him up in the morning, lateral hip and lateral/posterior pelvic pain. LBP starts later in the day. Pt moved to [facility] Aug 2023. 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 Treatment Goals Patient/Caregiver Goals Pt goal: - core and gluteal strengthening and balance training. Be able to lift from 30-45 lbs. - Sit for more than 10' due to back (tight hamstrings). - independent in HEP. Current Functional Impairments (Reported) Functional Limitations- ADL's Stationary bike 6x/week - 15'/ day. 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 PT-OP-C Subjective Start: 03/05/24 16:26 Freq: Status: Active Protocol: Document 03/31/24 09:10 LRN (Rec: 03/31/24 10:10 LRN [id number]) OP-PT Subjective Patient Comments Patient Comments States doing the bottoms up hamstring stretch causes the spinal stimulator to go off. PT-OP-J Posture/Palpation/Skin Start: 03/05/24 16:26 Freq: Status: Active Protocol: Document 03/06/24 11:18 LRN (Rec: 03/06/24 12:21 LRN [id number]) Posture Evaluation Position Standing Head/C-Spine Posture Forward Head T-Spine Posture Increased Kyphosis L-Spine Posture Flattened Shoulder Posture (R) Elevated Comments Posture Comments Head shifted left, R shoulder elevated, protruding R ACJ, very slight anterior pelvic tilt, wide stance. Palpation Assessment Location Low back Palpation Location L paraspinasl ~T6-T12 Palpation Findings Muscle Guarding PT-OP-K Range of Motion Start: 03/05/24 16:26 Freq: Status: Active Protocol: Document 03/06/24 11:18 LRN (Rec: 03/06/24 12:21 LRN [id number]) Lumbar Spine Range of Motion Lumbar Spine Active Degrees Testing Position Standing Flexion 60 Comments Precautions: No Bending, Lifting, Twisting. Hip Goniometric Range of Motion Hip Right Active Straight Leg Raise 75 Extension 2 Left Active Straight Leg Raise 75 Extension 0 PT-OP-M Strength Start: 03/05/24 16:26 Freq: Status: Active Protocol: Document 03/06/24 11:18 LRN (Rec: 03/06/24 12:21 LRN [id number]) Trunk Strength Trunk Manual Muscle Testing Core Stabilization Mild to moderate loss of core stability as noted with MMT of LE's (primarily with flex and rotation). Hip Strength Hip Manual Muscle Testing Right Abduction 4 Good Adduction 2- Poor- Comments Hip strength is 5/5 except as indicated above. Left Flexion (L2) 4+ Good+ Adduction 2 Poor External Rotation 3 Fair Internal Rotation 3 Fair Comments Hip strength is 5/5 except as indicated above. PT-OP-Q Treatments Start: 03/05/24 16:26 Freq: Status: Active Protocol: Document 03/31/24 09:10 LRN (Rec: 03/31/24 10:10 LRN [id number]) Cardio Equipment Recumbent Bicycle Duration (Minutes) 8 Resistance 7 self selected Seat Position 8 for pushing, 10 for lifting of foot Other 5' pushing, 15' DF lift (10' of adjustment) Therapeutic Exercises Standing Exercises repeated glut drive step up Standing Exercise Name Alternating step ups, then cued to tighten gluts Side bilateral Resistance 6 step Equipment Used light opp UE rail support 3-4 # pressure Reps/Minutes 3x10 Comments Xtra time: no momentum L>R, cued glut strenghening & step coord resisted side stepping Standing Exercise Name Side steppinng Side bilateral Equipment Used [employer] cord bottoms up Standing Exercise Name HS stretch- added to HEP pre lift activities Resistance BUE on 12 box Reps/Minutes 4' Comments squat pos /c straight back, knee ext- good Neuro Re-Education Treatment Balance Activities Step ups Details Progressive balancing: Step ups w/hands hovering, alternating step ups. Equipment 6 Steps Reps/Duration 8' Comments First, coordination of stepping, 2nd added glut contraction awareness, 3rd added light touch of hands or hands hovering. PT-OP-T Assessment and Plan Start: 03/05/24 16:26 Freq: Status: Active Protocol: Document 03/31/24 09:10 LRN (Rec: 03/31/24 10:10 LRN [id number]) Physical Therapy Assessment Goals Three Impairment Decreased functional strength for performing home activities of lifting. Impairment Pt goal: - core and gluteal strength and balance. Be able to lift from 30 to 45. - Can't sit for more than 10' due to back (tight hamstrings) . - independent in HEP. Short Term Goal (STG) Pt will be educated in proper body mechanics for DLS and Mtz to Safe Movement. STG Duration 4 wks-04/03/24 Garbage Collector Goal (LTG) Pt will be able to tolerate lifting 30#-45# with modification of lifting technique for functional activities at home. 03/16/24: incorporated straight back hip hinge in mirror deadlift 20# (2-10# DB). LTG Duration 12 wks-05/31/24 progressing Two Impairment Decreased sitting tolerance due to pain Impairment Can't sit for more than 10' due to back. Short Term Goal (STG) Improve LE mobility (tight hamstrings) and if tolerated neural mobility. 03/16/24: added standing bottoms up active HS stretch ( hands on step, knee ext). STG Duration 4 wks-04/03/24 progressing Retirement Goal (LTG) Pt will be able to improve functional sitting of 30-60' with modification of sitting or performing sitting mobility ex's to decrease pain. LTG Duration 12 wks-05/31/24 One Impairment Lacks appropriate self care HEP Impairment Pt goal: - core and gluteal strength and balance. Be able to lift from 30 to 45. - Can't sit for more than 10' due to back (tight hamstrings) . - independent in HEP. Short Term Goal (STG) Will be instructed in HEP for balance and nelda core strengthening ex's to support therapy services provided in clinic. 03/09/24: NAM 50/56, [place] 14/16. 03/16/24: reviewed deadbug, bridge /c hip abd #3 TB, resisted lateral stepping, repeated step up- L>R glut med /pirifor weakness. STG Duration 4 wks-04/03/24 progressing Garbage Collector Goal (LTG) Pt will be independent with HEP of general LE strengthening and hip ROM ex's with the goal of improving pt 's perception of safety with gait. 03/16/24: progressing:bridge /c hip abd #3 TB, resisted lateral stepping, repeated step up- L>R glut med/pirifor weakness. LTG Duration 12 wks-05/31/24 progressing Assessment Summary Assessment Pt is a 73 yo male s/p franci SI fusion/lock (R-10/19, L-01/18), franci foot neuropathy, R drop foot, pain in franci hips worse first in AM; franci LBP (sacral level) worse in pm, bilateral ankle pain, decr'dd franci hip mobility, weakness of the hips and core, straightened lumbosacral region, decr'd balance and safety w/gait; therefore decr'd activity level. Today, pt able to do HEP of step ups, resisted side stepping, bottoms up HS stretch. Using pillows to support legs at his brother's house helped to alleviate inner thigh cramping, no problem at home. Pt needs body mechanics training for back protection and posture improvement (especially sitting). Physical Therapy Plan Frequency and Duration Frequency of Treatment 2x/Week Duration of treatment (weeks) 12 Plan of Care Start Date 03/06/24 Plan of Care End Date 05/31/24 Next Visit Focus/Plan Next Note Type Treatment Note Next Visit Plan See Precautions. Next: Assess sensation & painfree hip PROM & balance. Education in [place] to Safe Movement & proper body mechanics for ADLS and posture training in sitting. Exer: Add stretching HS /c AP , gely stretch, semi tandem shld ext/pull downs, functional balance. Exer: Improve Hip Ext ROM, core nelda abdominal/SB/Rot strength & LE: L flex/ER/IR, franci AD, R AB. Functional strengthening: lifting POC: Decrease pain franci LB/ hips with Core/hip stabilization/strengthening; painfree hip mobility ex's; LB /hip ST;, transfer training ( log roll, hip hinging); self pain mgmt (MH, massage); on stationary bike & ADLs; general conditioning if tolerated; and improve balance .
--- NOTE | 2024-04-02 12:25 | PT.OTN ---
Current Diagnoses Other chronic pain (04/02/24) Low back pain, unspecified (04/02/24) Neuralgia and neuritis, unspecified (04/02/24) Other specified postprocedural states (04/02/24) Physical Therapy Treatment Note PT-OP-A Visit Information Start: 03/05/24 16:26 Freq: Status: Active Protocol: Document 04/02/24 11:21 LRN (Rec: 04/02/24 12:20 LRN [id number]) Out-Patient Physical Therapy Visit Information Visit Information Visit Type Treatment Note Visit Start Time 11:21 Visit Stop Time 12:02 Visit Number 5 Evaluation Information Evaluation Date 03/06/24 Precautions Precautions TAPE ALLERGY. PMH: Anterior L YANELY-07/20, No Bending Lifting Twisting (told after SI lock surgery - R 10/04/2023, L 01/18) - told recover time after surgery 6 months by different physician. PT-OP-B Current Condition Start: 03/05/24 16:26 Freq: Status: Active Protocol: Document 03/06/24 11:18 LRN (Rec: 03/06/24 12:21 LRN [id number]) Current Condition History of Current Condition Onset Date 10/2023 Current Complaints SI pain, lateral hip and posterior hip/pelvic pain History of Current Condition Pt reportedly has had a sequence of surgeries in [place], starting 8 yrs ago and hasn't been able to get back into condition since. Last 2 surgeries were SI locks/ fusions with pinnings R side Sep 2023, L side 12/2023. Has pain on both sides different than prior to surgery. Expected outcome was relief of pain with transition (most standing up). His complaints now are pain that wakes him up in the morning, lateral hip and lateral/posterior pelvic pain. LBP starts later in the day. Pt moved to [facility] Aug 2023. 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 Prior Treatments and Tests Post surgical rehab in [place] after each SI lock/ fusion surgeries, both inpt and outpt rehab. Treatment Goals Patient/Caregiver Goals Pt goal: - core and gluteal strengthening and balance training. Be able to lift from 30-45 lbs. - Sit for more than 10' due to back (tight hamstrings). - independent in HEP. Current Functional Impairments (Reported) Functional Limitations- ADL's Stationary bike 6x/week - 15'/ day. 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 PT-OP-C Subjective Start: 03/05/24 16:26 Freq: Status: Active Protocol: Document 04/02/24 11:21 LRN (Rec: 04/02/24 12:20 LRN [id number]) OP-PT Subjective Patient Comments Patient Comments A little numbness of the R lower leg today that comes and goes if sit or stand stationary tool long. PT-OP-H Neuro Start: 03/05/24 16:26 Freq: Status: Active Protocol: Document 04/02/24 12:21 LRN (Rec: 04/02/24 12:24 LRN [id number]) Sensation Evaluation Location Details Right Lower Leg Light Touch Impaired Comments Summary Comments Hypersensitive in lateral side of leg anteriorly and posteriorly (from briscoe bone and brace vertical stay) and in lateral leg from the top of the strap of the leg brace, distally. PT-OP-J Posture/Palpation/Skin Start: 03/05/24 16:26 Freq: Status: Active Protocol: Document 03/06/24 11:18 LRN (Rec: 03/06/24 12:21 LRN [id number]) Posture Evaluation Position Standing Head/C-Spine Posture Forward Head T-Spine Posture Increased Kyphosis L-Spine Posture Flattened Shoulder Posture (R) Elevated Comments Posture Comments Head shifted left, R shoulder elevated, protruding R ACJ, very slight anterior pelvic tilt, wide stance. Palpation Assessment Location Low back Palpation Location L paraspinasl ~T6-T12 Palpation Findings Muscle Guarding PT-OP-K Range of Motion Start: 03/05/24 16:26 Freq: Status: Active Protocol: Document 04/02/24 11:21 LRN (Rec: 04/02/24 12:20 LRN [id number]) Hip Goniometric Range of Motion Hip Right Active Testing Position Supine Straight Leg Raise 75 Extension 2 Internal Rotation 40 External Rotation 50 Left Active Testing Position Supine Straight Leg Raise 75 Extension 0 Internal Rotation 30 External Rotation 55 PT-OP-M Strength Start: 03/05/24 16:26 Freq: Status: Active Protocol: Document 03/06/24 11:18 LRN (Rec: 03/06/24 12:21 LRN [id number]) Trunk Strength Trunk Manual Muscle Testing Core Stabilization Mild to moderate loss of core stability as noted with MMT of LE's (primarily with flex and rotation). Hip Strength Hip Manual Muscle Testing Right Abduction 4 Good Adduction 2- Poor- Comments Hip strength is 5/5 except as indicated above. Left Flexion (L2) 4+ Good+ Adduction 2 Poor External Rotation 3 Fair Internal Rotation 3 Fair Comments Hip strength is 5/5 except as indicated above. PT-OP-Q Treatments Start: 03/05/24 16:26 Freq: Status: Active Protocol: Document 04/02/24 11:21 LRN (Rec: 04/02/24 12:20 LRN [id number]) Therapeutic Exercises Supine Exercises Piriformis stretch Supine Exercise Name Knee over ankle for knee to opp shdr pull; folded towel in small of back Side right Reps/Minutes 2' Fig 4 stretch Supine Exercise Name R ONLY; folded towel in small of back Side right Reps/Minutes 2' Hip ER/IR Supine Exercise Name Passive manual hip ER/IR stretch Side bilateral Reps/Minutes 10' Comments ROM taken; Hip PROM limited on R 5 deg' ER, 10 deg's IR. bug Supine Exercise Name bug with arms leg, then legs, then arms; folded towel in small of back Side bilateral Equipment Used self assess & mirror Reps/Minutes 14' Comments Backed off use of arms/legs to only arms due to core stab loss. bridge /c hip abd Supine Exercise Name bridge w/hip AB feet shdr width apart; folded towel in small of back Resistance TB #3 green at thighs Reps/Minutes 8' Comments cued feet shdr width apart and level pelvis, good slow pacing Therapeutic Activity Therapeutic Activity Body mechanics training Name Body mechanics training for ADLs & Proper posture for Safe Mvmt. Reps/Minutes 5' Self-Care/Home Management Treatment Activities Self-Care/Home Management Activities Issued Lev 2 TB and bridge/ core ex. PT-OP-T Assessment and Plan Start: 03/05/24 16:26 Freq: Status: Active Protocol: Document 04/02/24 11:21 LRN (Rec: 04/02/24 12:20 LRN [id number]) Physical Therapy Assessment Goals Three Impairment Decreased functional strength for performing home activities of lifting. Impairment Pt goal: - core and gluteal strength and balance. Be able to lift from 30 to 45. - Can't sit for more than 10' due to back (tight hamstrings) . - independent in HEP. Short Term Goal (STG) Pt will be educated in proper body mechanics for DLS and Mtz to Safe Movement. 04/02/24: Pt training/ education in body mechanics for ADLs & Proper Posture for Mtz to Safe Movement. STG Duration 4 wks-04/03/24 (04/02/24: MET GOAL) Detention Goal (LTG) Pt will be able to tolerate lifting 30#-45# with modification of lifting technique for functional activities at home. 03/16/24: incorporated straight back hip hinge in mirror deadlift 20# (2-10# DB). LTG Duration 12 wks-05/31/24 progressing Two Impairment Decreased sitting tolerance due to pain Impairment Can't sit for more than 10' due to back. Short Term Goal (STG) Improve LE mobility (tight hamstrings) and if tolerated neural mobility. 03/16/24: added standing bottoms up active HS stretch ( hands on step, knee ext). STG Duration 4 wks-04/03/24 progressing Commercial Cleaner Goal (LTG) Pt will be able to improve functional sitting of 30-60' with modification of sitting or performing sitting mobility ex's to decrease pain. LTG Duration 12 wks-05/31/24 One Impairment Lacks appropriate self care HEP Impairment Pt goal: - core and gluteal strength and balance. Be able to lift from 30 to 45. - Can't sit for more than 10' due to back (tight hamstrings) . - independent in HEP. Short Term Goal (STG) Will be instructed in HEP for balance and nelda core strengthening ex's to support therapy services provided in clinic. 03/09/24: NAM 50/56, Radha 14/16. 03/16/24: reviewed deadbug, bridge /c hip abd #3 TB, resisted lateral stepping, repeated step up- L>R glut med /pirifor weakness. STG Duration 4 wks-04/03/24 progressing Commercial Cleaner Goal (LTG) Pt will be independent with HEP of general LE strengthening and hip ROM ex's with the goal of improving pt 's perception of safety with gait. 03/16/24: progressing:bridge /c hip abd #3 TB, resisted lateral stepping, repeated step up- L>R glut med/pirifor weakness. LTG Duration 12 wks-05/31/24 progressing Assessment Summary Assessment 73 yo male s/p franci SI fusion/ lock (R-10/19, L-01/18) with: pain in franci hips worse first in AM; franci LBP (sacral level) worse in pm, bilateral ankle pain, franci foot neuropathy, R drop foot, decr'd hip mobility , weakness of the hips and core, straightened lumbosacral region, decr'd balance and safety w/gait; therefore decr' d activity level. Today, he demonstrates poor core stabilization with bug ( abdominal doming) and he needed folded towel under LB for postural support and discomfort. Pt was very receptive to body mechanics and posture training for different positions. Physical Therapy Plan Frequency and Duration Frequency of Treatment 2x/Week Duration of treatment (weeks) 12 Plan of Care Start Date 03/06/24 Plan of Care End Date 05/31/24 Next Visit Focus/Plan Next Note Type Treatment Note Next Visit Plan See Precautions. Next: Assess standing balance. Posture training in sitting. Exer: Add stretching HS /c AP , gely stretch, semi tandem shld ext/pull downs, functional balance. Exer: Improve Hip Ext ROM, core nelda abdominal/SB/Rot strength & LE: L flex/ER/IR, franci AD, R AB. Functional strengthening: lifting POC: Decrease pain franci LB/ hips with Core/hip stabilization/strengthening; painfree hip mobility ex's; LB /hip ST;, transfer training ( log roll, hip hinging); self pain mgmt (MH, massage); on stationary bike & ADLs; general conditioning if tolerated; and improve balance .
--- NOTE | 2024-04-07 12:44 | PT.OTN ---
Current Diagnoses Other chronic pain (04/07/24) Low back pain, unspecified (04/07/24) Neuralgia and neuritis, unspecified (04/07/24) Other specified postprocedural states (04/07/24) Physical Therapy Treatment Note PT-OP-A Visit Information Start: 03/05/24 16:26 Freq: Status: Active Protocol: Document 04/07/24 11:14 AB (Rec: 04/07/24 12:20 AB [id number]) Out-Patient Physical Therapy Visit Information Visit Information Visit Type Treatment Note Visit Note Visit [email or web address] Access Code: [email or web address] Visit Start Time 11:19 Visit Stop Time 12:04 Visit Number 6 Number of SCHOOL BUS TECHNICIAN Visits 1 Evaluation Information Evaluation Date 03/06/24 Precautions Precautions TAPE ALLERGY. PMH: Anterior L YANELY-07/20, No Bending Lifting Twisting (told after SI lock surgery - R 10/04/2023, L 01/18) - told recover time after surgery 6 months by different physician. PT-OP-B Current Condition Start: 03/05/24 16:26 Freq: Status: Active Protocol: Document 03/06/24 11:18 LRN (Rec: 03/06/24 12:21 LRN [id number]) Current Condition History of Current Condition Onset Date 10/2023 Current Complaints SI pain, lateral hip and posterior hip/pelvic pain History of Current Condition Pt reportedly has had a sequence of surgeries in [place], starting 8 yrs ago and hasn't been able to get back into condition since. Last 2 surgeries were SI locks/ fusions with pinnings R side Sep 2023, L side 12/2023. Has pain on both sides different than prior to surgery. Expected outcome was relief of pain with transition (most standing up). His complaints now are pain that wakes him up in the morning, lateral hip and lateral/posterior pelvic pain. LBP starts later in the day. Pt moved to [facility] Aug 2023. 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 Prior Treatments and Tests Post surgical rehab in [place] after each SI lock/ fusion surgeries, both inpt and outpt rehab. Treatment Goals Patient/Caregiver Goals Pt goal: - core and gluteal strengthening and balance training. Be able to lift from 30-45 lbs. - Sit for more than 10' due to back (tight hamstrings). - independent in HEP. Current Functional Impairments (Reported) Functional Limitations- ADL's Stationary bike 6x/week - 15'/ day. 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 PT-OP-C Subjective Start: 03/05/24 16:26 Freq: Status: Active Protocol: Document 04/07/24 11:14 AB (Rec: 04/07/24 12:20 AB [id number]) OP-PT Subjective Patient Comments Patient Comments Patient reports he is the same , has ankle pain right now, peaks around noon, feels better in the morning. SLS 3,1 ,7 left right one to less than one multiple trials without UE use Dane sits with legs crossed posterior pelvic tilt. PT-OP-H Neuro Start: 03/05/24 16:26 Freq: Status: Active Protocol: Document 04/02/24 12:21 LRN (Rec: 04/02/24 12:24 LRN [id number]) Sensation Evaluation Location Details Right Lower Leg Light Touch Impaired Comments Summary Comments Hypersensitive in lateral side of leg anteriorly and posteriorly (from briscoe bone and brace vertical stay) and in lateral leg from the top of the strap of the leg brace, distally. PT-OP-J Posture/Palpation/Skin Start: 03/05/24 16:26 Freq: Status: Active Protocol: Document 03/06/24 11:18 LRN (Rec: 03/06/24 12:21 LRN [id number]) Posture Evaluation Position Standing Head/C-Spine Posture Forward Head T-Spine Posture Increased Kyphosis L-Spine Posture Flattened Shoulder Posture (R) Elevated Comments Posture Comments Head shifted left, R shoulder elevated, protruding R ACJ, very slight anterior pelvic tilt, wide stance. Palpation Assessment Location Low back Palpation Location L paraspinasl ~T6-T12 Palpation Findings Muscle Guarding PT-OP-K Range of Motion Start: 03/05/24 16:26 Freq: Status: Active Protocol: Document 04/02/24 11:21 LRN (Rec: 04/02/24 12:20 LRN [id number]) Hip Goniometric Range of Motion Hip Right Active Testing Position Supine Straight Leg Raise 75 Extension 2 Internal Rotation 40 External Rotation 50 Left Active Testing Position Supine Straight Leg Raise 75 Extension 0 Internal Rotation 30 External Rotation 55 PT-OP-M Strength Start: 03/05/24 16:26 Freq: Status: Active Protocol: Document 03/06/24 11:18 LRN (Rec: 03/06/24 12:21 LRN [id number]) Trunk Strength Trunk Manual Muscle Testing Core Stabilization Mild to moderate loss of core stability as noted with MMT of LE's (primarily with flex and rotation). Hip Strength Hip Manual Muscle Testing Right Abduction 4 Good Adduction 2- Poor- Comments Hip strength is 5/5 except as indicated above. Left Flexion (L2) 4+ Good+ Adduction 2 Poor External Rotation 3 Fair Internal Rotation 3 Fair Comments Hip strength is 5/5 except as indicated above. PT-OP-Q Treatments Start: 03/05/24 16:26 Freq: Status: Active Protocol: Document 04/07/24 11:14 AB (Rec: 04/07/24 12:20 AB [id number]) Gym Equipment Shuttle Balance red Details WBOS, stagger stance Reps/Duration 3 min Comments head turns and visual scanning with WBOS. CGA throughout. Therapeutic Exercises Supine Exercises hip flexor stretch Supine Exercise Name edge of mat Side bilateral Reps/Minutes one minute each LE Comments verbal cues Sitting Exercises seated hip abd with band Sitting Exercise Name Added to HEP Side bilateral Resistance level 2 band Reps/Minutes one minute hold X 1 Comments for glute med activation Standing Exercises bottoms up Standing Exercise Name HS stretch- added to HEP pre lift activities Resistance BUE on 12 box Reps/Minutes X2 Comments squat pos /c straight back, knee ext- good Therapeutic Activity Therapeutic Activity seated positioning Name seated posture Comments Patient advised to avoid crossing LE's, Patient ed rationale of towel roll under ischial tuberosities to increase anterior pelvic tilt and hold improved posture LS area longer while seated. Practiced positioning of towel roll with soft 1/2 foam roller. log roll Reps/Minutes X4 during session Comments Performed with good technique on initiation, but subsequently initiated position with poor technique and required verbal cues to correct Manual Therapy Treatment Soft Tissue Mobilization LS paraspinals Body Location bilateral avoiding implant Mobilization Type Sustained Pressure Intensity/Depth Superficial Body Position Sidelying Comments to moderate Neuro Re-Education Treatment Balance Activities Hurdles Equipment hands above parallel bars Reps/Duration 10 feet X 2 Comments CGA tandem stepping Details with and without visual scanning, head turns Equipment hands above parallel bars Reps/Duration 10 feet X 6 Comments CGA Step ups Details taps Equipment 8 inch step Reps/Duration X16 Comments CGA PT-OP-T Assessment and Plan Start: 03/05/24 16:26 Freq: Status: Active Protocol: Document 04/07/24 11:14 AB (Rec: 04/07/24 12:20 AB [id number]) Physical Therapy Assessment Goals Three Impairment Decreased functional strength for performing home activities of lifting. Impairment Pt goal: - core and gluteal strength and balance. Be able to lift from 30 to 45. - Can't sit for more than 10' due to back (tight hamstrings) . - independent in HEP. Short Term Goal (STG) Pt will be educated in proper body mechanics for DLS and Mtz to Safe Movement. 04/02/24: Pt training/ education in body mechanics for ADLs & Proper Posture for Mtz to Safe Movement. STG Duration 4 wks-04/03/24 (04/02/24: MET GOAL) Utilization Coordinator Goal (LTG) Pt will be able to tolerate lifting 30#-45# with modification of lifting technique for functional activities at home. 03/16/24: incorporated straight back hip hinge in mirror deadlift 20# (2-10# DB). LTG Duration 12 wks-05/31/24 progressing Two Impairment Decreased sitting tolerance due to pain Impairment Can't sit for more than 10' due to back. Short Term Goal (STG) Improve LE mobility (tight hamstrings) and if tolerated neural mobility. 03/16/24: added standing bottoms up active HS stretch ( hands on step, knee ext). STG Duration 4 wks-04/03/24 progressing Utilization Coordinator Goal (LTG) Pt will be able to improve functional sitting of 30-60' with modification of sitting or performing sitting mobility ex's to decrease pain. LTG Duration 12 wks-05/31/24 One Impairment Lacks appropriate self care HEP Impairment Pt goal: - core and gluteal strength and balance. Be able to lift from 30 to 45. - Can't sit for more than 10' due to back (tight hamstrings) . - independent in HEP. Short Term Goal (STG) Will be instructed in HEP for balance and nelda core strengthening ex's to support therapy services provided in clinic. 03/09/24: NAM 50/56, Radha 14/16. 03/16/24: reviewed deadbug, bridge /c hip abd #3 TB, resisted lateral stepping, repeated step up- L>R glut med /pirifor weakness. STG Duration 4 wks-04/03/24 progressing Snf Goal (LTG) Pt will be independent with HEP of general LE strengthening and hip ROM ex's with the goal of improving pt 's perception of safety with gait. 03/16/24: progressing:bridge /c hip abd #3 TB, resisted lateral stepping, repeated step up- L>R glut med/pirifor weakness. 04/07/2024 Seated hip abd with band added to HEP LTG Duration 12 wks-05/31/24 progressing Assessment Summary Assessment 73 yo male s/p franci SI fusion/ lock (R-10/19, L-01/18) with significant decreased SLS right LE without UE use, reported back begining to ache with balance training in parallel bars, post manual therapy and Zafar stretch patient when questioned regarding use of bike vs balance exercises, patient requested to continue with balance exercises. Patient reports feeling like his hips were exercised end of session. Physical Therapy Plan Frequency and Duration Frequency of Treatment 2x/Week Duration of treatment (weeks) 12 Plan of Care Start Date 03/06/24 Plan of Care End Date 05/31/24 Therapeutic Interventions Therapeutic Interventions Balance Training,Gait Training ,Home Exercise Program,Manual Therapy,Self-Care/Home Management,Soft Tissue Mobilization,Therapeutic Activities,Therapeutic Exercises Modalities Cold Pack/Ice Massage,Hot Packs Next Visit Focus/Plan Next Note Type Treatment Note Next Visit Plan See Precautions. Next: continue with balance training Exer: Add stretching HS /c AP , zafar stretch/ edge of bed in clinic, semi tandem shld ext/pull downs, functional balance. Exer: Improve Hip Ext ROM, core nelda abdominal/SB/Rot strength & LE: L flex/ER/IR, franci AD, R AB. Functional strengthening: lifting POC: Decrease pain franci LB/ hips with Core/hip stabilization/strengthening; painfree hip mobility ex's; LB /hip ST;, transfer training ( hip hinging); self pain mgmt ( MH, massage); on stationary bike & ADLs; general conditioning if tolerated; and improve balance.
--- NOTE | 2024-04-09 12:18 | PT.OTN ---
Current Diagnoses Other chronic pain (04/09/24) Low back pain, unspecified (04/09/24) Neuralgia and neuritis, unspecified (04/09/24) Other specified postprocedural states (04/09/24) Physical Therapy Treatment Note PT-OP-A Visit Information Start: 03/05/24 16:26 Freq: Status: Active Protocol: Document 04/09/24 09:59 AB (Rec: 04/09/24 12:17 AB [id number]) Out-Patient Physical Therapy Visit Information Visit Information Visit Type Treatment Note Visit Note Visit [email or web address] Access Code: [email or web address] Visit Start Time 10:35 Visit Stop Time 11:16 Visit Number 7 Number of COMPLETIONS MANAGER Visits 2 Evaluation Information Evaluation Date 03/06/24 Precautions Precautions TAPE ALLERGY. PMH: Anterior L YANELY-07/20, No Bending Lifting Twisting (told after SI lock surgery - R 10/04/2023, L 01/18) - told recover time after surgery 6 months by different physician. PT-OP-B Current Condition Start: 03/05/24 16:26 Freq: Status: Active Protocol: Document 03/06/24 11:18 LRN (Rec: 03/06/24 12:21 LRN [id number]) Current Condition History of Current Condition Onset Date 10/2023 Current Complaints SI pain, lateral hip and posterior hip/pelvic pain History of Current Condition Pt reportedly has had a sequence of surgeries in [place], starting 8 yrs ago and hasn't been able to get back into condition since. Last 2 surgeries were SI locks/ fusions with pinnings R side Sep 2023, L side 12/2023. Has pain on both sides different than prior to surgery. Expected outcome was relief of pain with transition (most standing up). His complaints now are pain that wakes him up in the morning, lateral hip and lateral/posterior pelvic pain. LBP starts later in the day. Pt moved to [facility], [place] Aug 2023. 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 Prior Treatments and Tests Post surgical rehab in [place] after each SI lock/ fusion surgeries, both inpt and outpt rehab. Treatment Goals Patient/Caregiver Goals Pt goal: - core and gluteal strengthening and balance training. Be able to lift from 30-45 lbs. - Sit for more than 10' due to back (tight hamstrings). - independent in HEP. Current Functional Impairments (Reported) Functional Limitations- ADL's Stationary bike 6x/week - 15'/ day. 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 PT-OP-C Subjective Start: 03/05/24 16:26 Freq: Status: Active Protocol: Document 04/09/24 09:59 AB (Rec: 04/09/24 12:17 AB [id number]) OP-PT Subjective Patient Comments Patient Comments Dane rates back pain 5-6/10, reports having increased ankle pain post one hour sitting this morning. PT-OP-H Neuro Start: 03/05/24 16:26 Freq: Status: Active Protocol: Document 04/02/24 12:21 LRN (Rec: 04/02/24 12:24 LRN [id number]) Sensation Evaluation Location Details Right Lower Leg Light Touch Impaired Comments Summary Comments Hypersensitive in lateral side of leg anteriorly and posteriorly (from briscoe bone and brace vertical stay) and in lateral leg from the top of the strap of the leg brace, distally. PT-OP-J Posture/Palpation/Skin Start: 03/05/24 16:26 Freq: Status: Active Protocol: Document 03/06/24 11:18 LRN (Rec: 03/06/24 12:21 LRN [id number]) Posture Evaluation Position Standing Head/C-Spine Posture Forward Head T-Spine Posture Increased Kyphosis L-Spine Posture Flattened Shoulder Posture (R) Elevated Comments Posture Comments Head shifted left, R shoulder elevated, protruding R ACJ, very slight anterior pelvic tilt, wide stance. Palpation Assessment Location Low back Palpation Location L paraspinasl ~T6-T12 Palpation Findings Muscle Guarding PT-OP-K Range of Motion Start: 03/05/24 16:26 Freq: Status: Active Protocol: Document 04/02/24 11:21 LRN (Rec: 04/02/24 12:20 LRN [id number]) Hip Goniometric Range of Motion Hip Right Active Testing Position Supine Straight Leg Raise 75 Extension 2 Internal Rotation 40 External Rotation 50 Left Active Testing Position Supine Straight Leg Raise 75 Extension 0 Internal Rotation 30 External Rotation 55 PT-OP-M Strength Start: 03/05/24 16:26 Freq: Status: Active Protocol: Document 03/06/24 11:18 LRN (Rec: 03/06/24 12:21 LRN [id number]) Trunk Strength Trunk Manual Muscle Testing Core Stabilization Mild to moderate loss of core stability as noted with MMT of LE's (primarily with flex and rotation). Hip Strength Hip Manual Muscle Testing Right Abduction 4 Good Adduction 2- Poor- Comments Hip strength is 5/5 except as indicated above. Left Flexion (L2) 4+ Good+ Adduction 2 Poor External Rotation 3 Fair Internal Rotation 3 Fair Comments Hip strength is 5/5 except as indicated above. PT-OP-Q Treatments Start: 03/05/24 16:26 Freq: Status: Active Protocol: Document 04/09/24 09:59 AB (Rec: 04/09/24 12:17 AB [id number]) Cardio Equipment Recumbent Bicycle Duration (Minutes) 6 Resistance 8 self selected Seat Position 8 for pushing Gym Equipment Shuttle Balance red Details WBOS, stagger stance Reps/Duration 3 min Comments head turns and visual scanning with WBOS. CGA throughout. Therapeutic Exercises Supine Exercises hamstring stretch Supine Exercise Name from hooklying with ankle pumps on with knee flexion X 5 Side bilateral Reps/Minutes 60 seconds X 1 each LE Comments added to HEP hip flexor stretch Supine Exercise Name edge of mat Side bilateral Reps/Minutes one minute each LE Comments verbal cues Manual Therapy Treatment Soft Tissue Mobilization LS paraspinals Body Location bilateral avoiding implant Mobilization Type Sustained Pressure Intensity/Depth Superficial Body Position Sidelying Comments to moderate Neuro Re-Education Treatment Balance Activities Hurdles Equipment hands above parallel bars Reps/Duration 10 feet X 6 Comments CGA tandem stepping Details with and without visual scanning, head turns Equipment hands above parallel bars Reps/Duration 10 feet X 6 Comments CGA Step ups Details taps Equipment inch step Reps/Duration X12 Comments CGA PT-OP-T Assessment and Plan Start: 03/05/24 16:26 Freq: Status: Active Protocol: Document 04/09/24 09:59 AB (Rec: 04/09/24 12:17 AB [id number]) Physical Therapy Assessment Goals Three Impairment Decreased functional strength for performing home activities of lifting. Impairment Pt goal: - core and gluteal strength and balance. Be able to lift from 30 to 45. - Can't sit for more than 10' due to back (tight hamstrings) . - independent in HEP. Short Term Goal (STG) Pt will be educated in proper body mechanics for DLS and Mtz to Safe Movement. 04/02/24: Pt training/ education in body mechanics for ADLs & Proper Posture for Mtz to Safe Movement. STG Duration 4 wks-04/03/24 (04/02/24: MET GOAL) Linoleum Mechanic Goal (LTG) Pt will be able to tolerate lifting 30#-45# with modification of lifting technique for functional activities at home. 03/16/24: incorporated straight back hip hinge in mirror deadlift 20# (2-10# DB). LTG Duration 12 wks-05/31/24 progressing Two Impairment Decreased sitting tolerance due to pain Impairment Can't sit for more than 10' due to back. Short Term Goal (STG) Improve LE mobility (tight hamstrings) and if tolerated neural mobility. 03/16/24: added standing bottoms up active HS stretch ( hands on step, knee ext). STG Duration 4 wks-04/03/24 progressing [facility] Goal (LTG) Pt will be able to improve functional sitting of 30-60' with modification of sitting or performing sitting mobility ex's to decrease pain. 2023 Patient reports sitting for one hour, but with increased ankle pain post, which decreased by 1/2 post manual therapy and and exercise. LTG Duration 12 wks-05/31/24 One Impairment Lacks appropriate self care HEP Impairment Pt goal: - core and gluteal strength and balance. Be able to lift from 30 to 45. - Can't sit for more than 10' due to back (tight hamstrings) . - independent in HEP. Short Term Goal (STG) Will be instructed in HEP for balance and nelda core strengthening ex's to support therapy services provided in clinic. 03/09/24: NAM 50/56, Radha 14/16. 03/16/24: reviewed deadbug, bridge /c hip abd #3 TB, resisted lateral stepping, repeated step up- L>R glut med /pirifor weakness. STG Duration 4 wks-04/03/24 progressing Linoleum Mechanic Goal (LTG) Pt will be independent with HEP of general LE strengthening and hip ROM ex's with the goal of improving pt 's perception of safety with gait. 03/16/24: progressing:bridge /c hip abd #3 TB, resisted lateral stepping, repeated step up- L>R glut med/pirifor weakness. 04/07/2024 Seated hip abd with band added to HEP 04/09/2024 Added stretching HS /c AP, and AROM knee flexion to HEP LTG Duration 12 wks-05/31/24 progressing Assessment Summary Assessment 73 yo male s/p franci SI fusion/ lock (R-10/19, L-01/18).Patient reports ankle pain is 1/2 of the intensty of, and back pain is much better end of session . Dane was able to keep his foot in/on bike pedal this session, reports it had to be strapped in place previous session. Physical Therapy Plan Frequency and Duration Frequency of Treatment 2x/Week Duration of treatment (weeks) 12 Plan of Care Start Date 03/06/24 Plan of Care End Date 05/31/24 Next Visit Focus/Plan Next Note Type Treatment Note Next Visit Plan See Precautions. Next: continue with balance training Exer: gely stretch/ edge of bed in clinic, semi tandem shld ext/pull downs, functional balance. Exer: Improve Hip Ext ROM, core nelda abdominal/SB/Rot strength & LE: L flex/ER/IR, franci AD, R AB. Functional strengthening: lifting POC: Decrease pain franci LB/ hips with Core/hip stabilization/strengthening; painfree hip mobility ex's; LB /hip ST;, transfer training ( hip hinging); FOCUS ON self pain mgmt (MH, massage); on stationary bike & ADLs; general conditioning if tolerated; and improve balance .
--- NOTE | 2024-04-14 16:25 | PT.OTN ---
Current Diagnoses Other chronic pain (04/14/24) Low back pain, unspecified (04/14/24) Neuralgia and neuritis, unspecified (04/14/24) Other specified postprocedural states (04/14/24) Physical Therapy Treatment Note PT-OP-A Visit Information Start: 03/05/24 16:26 Freq: Status: Active Protocol: Document 04/14/24 13:47 LRN (Rec: 04/14/24 14:35 LRN [id number]) Out-Patient Physical Therapy Visit Information Visit Information Visit Type Treatment Note Visit Note Late April cortisone injection. Visit Start Time 13:47 Visit Stop Time 14:29 Visit Number 8 Evaluation Information Evaluation Date 03/06/24 Precautions Precautions TAPE ALLERGY. PMH: Anterior L YANELY-07/20, No Bending Lifting Twisting (told after SI lock surgery - R 10/04/2023, L 01/18) - told recover time after surgery 6 months by different physician. PT-OP-B Current Condition Start: 03/05/24 16:26 Freq: Status: Active Protocol: Document 03/06/24 11:18 LRN (Rec: 03/06/24 12:21 LRN [id number]) Current Condition History of Current Condition Onset Date 10/2023 Current Complaints SI pain, lateral hip and posterior hip/pelvic pain History of Current Condition Pt reportedly has had a sequence of surgeries in [place], starting 8 yrs ago and hasn't been able to get back into condition since. Last 2 surgeries were SI locks/ fusions with pinnings R side Sep 2023, L side 12/2023. Has pain on both sides different than prior to surgery. Expected outcome was relief of pain with transition (most standing up). His complaints now are pain that wakes him up in the morning, lateral hip and lateral/posterior pelvic pain. LBP starts later in the day. 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 Treatment Goals Patient/Caregiver Goals Pt goal: - core and gluteal strengthening and balance training. Be able to lift from 30-45 lbs. - Sit for more than 10' due to back (tight hamstrings). - independent in HEP. Current Functional Impairments (Reported) Functional Limitations- ADL's Stationary bike 6x/week - 15'/ day. 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 PT-OP-C Subjective Start: 03/05/24 16:26 Freq: Status: Active Protocol: Document 04/14/24 13:47 LRN (Rec: 04/14/24 14:35 LRN [id number]) OP-PT Subjective Patient Comments Patient Comments Met w/spine jean and is planning on doing an cortisone injection (~late april) to back to decrease pain in back & ankle/legs. PT-OP-H Neuro Start: 03/05/24 16:26 Freq: Status: Active Protocol: Document 04/14/24 13:47 LRN (Rec: 04/14/24 16:25 LRN [id number]) Sensation Evaluation Location Details Right Lower Leg Light Touch Impaired Comments Summary Comments Decreased sensation of R lower leg from the top of the leg brace distally and from briscoe to brace upright stay. PT-OP-J Posture/Palpation/Skin Start: 03/05/24 16:26 Freq: Status: Active Protocol: Document 03/06/24 11:18 LRN (Rec: 03/06/24 12:21 LRN [id number]) Posture Evaluation Position Standing Head/C-Spine Posture Forward Head T-Spine Posture Increased Kyphosis L-Spine Posture Flattened Shoulder Posture (R) Elevated Comments Posture Comments Head shifted left, R shoulder elevated, protruding R ACJ, very slight anterior pelvic tilt, wide stance. Palpation Assessment Location Low back Palpation Location L paraspinasl ~T6-T12 Palpation Findings Muscle Guarding PT-OP-K Range of Motion Start: 03/05/24 16:26 Freq: Status: Active Protocol: Document 04/02/24 11:21 LRN (Rec: 04/02/24 12:20 LRN [id number]) Hip Goniometric Range of Motion Hip Right Active Testing Position Supine Straight Leg Raise 75 Extension 2 Internal Rotation 40 External Rotation 50 Left Active Testing Position Supine Straight Leg Raise 75 Extension 0 Internal Rotation 30 External Rotation 55 PT-OP-M Strength Start: 03/05/24 16:26 Freq: Status: Active Protocol: Document 03/06/24 11:18 LRN (Rec: 03/06/24 12:21 LRN [id number]) Trunk Strength Trunk Manual Muscle Testing Core Stabilization Mild to moderate loss of core stability as noted with MMT of LE's (primarily with flex and rotation). Hip Strength Hip Manual Muscle Testing Right Abduction 4 Good Adduction 2- Poor- Comments Hip strength is 5/5 except as indicated above. Left Flexion (L2) 4+ Good+ Adduction 2 Poor External Rotation 3 Fair Internal Rotation 3 Fair Comments Hip strength is 5/5 except as indicated above. PT-OP-Q Treatments Start: 03/05/24 16:26 Freq: Status: Active Protocol: Document 04/14/24 13:47 LRN (Rec: 04/14/24 14:35 LRN [id number]) Cardio Equipment Recumbent Bicycle Duration (Minutes) 6 Resistance 8 self selected Seat Position 8 for pushing Therapeutic Exercises Supine Exercises SLR Supine Exercise Name TA tight to start Side bilateral Reps/Minutes 10x each Lat pull down Supine Exercise Name Franci UE's Equipment Used Dowel with 10#, L2TB Reps/Minutes 10x hamstring stretch Supine Exercise Name from hooklying with ankle pumps on with knee flexion X 5 Side bilateral Reps/Minutes 60 seconds X 1 each LE Comments Extra time taken to determine max mechelle ex positioning hip flexor stretch Supine Exercise Name edge of mat Side bilateral Reps/Minutes one minute each LE, f/b single leg nelda glut squeeze. Comments verbal cues bridge /c hip abd Supine Exercise Name Bridge Reps/Minutes 10x Sidelying Exercises Reverse clamshell Sidelying Exercise Name Foot lifts Side bilateral Comments cued for arch inback/TA tight, xtra time for training & position cuing Clamshell Side bilateral Comments cuing to ASIS/TA to keep hips from rolling posteriorly during lift Hip AD Side bilateral Reps/Minutes 10x Comments Extra time and cuing and training for positioning Neuro Re-Education Treatment Balance Activities Hurdles Equipment hands above parallel bars Reps/Duration 10 feet X 6 Comments CGA PT-OP-T Assessment and Plan Start: 03/05/24 16:26 Freq: Status: Active Protocol: Document 04/14/24 13:47 LRN (Rec: 04/14/24 14:35 LRN [id number]) Physical Therapy Assessment Goals Three Impairment Decreased functional strength for performing home activities of lifting. Impairment Pt goal: - core and gluteal strength and balance. Be able to lift from 30 to 45. - Can't sit for more than 10' due to back (tight hamstrings) . - independent in HEP. Short Term Goal (STG) Pt will be educated in proper body mechanics for DLS and Mtz to Safe Movement. 04/02/24: Pt training/ education in body mechanics for ADLs & Proper Posture for Mtz to Safe Movement. STG Duration 4 wks-04/03/24 (04/02/24: MET GOAL) Traffic Control Technician Goal (LTG) Pt will be able to tolerate lifting 30#-45# with modification of lifting technique for functional activities at home. 03/16/24: incorporated straight back hip hinge in mirror deadlift 20# (2-10# DB). LTG Duration 12 wks-05/31/24 progressing Two Impairment Decreased sitting tolerance due to pain Impairment Can't sit for more than 10' due to back. Short Term Goal (STG) Improve LE mobility (tight hamstrings) and if tolerated neural mobility. 03/16/24: added standing bottoms up active HS stretch ( hands on step, knee ext). STG Duration 4 wks-04/03/24 progressing Senior Living Goal (LTG) Pt will be able to improve functional sitting of 30-60' with modification of sitting or performing sitting mobility ex's to decrease pain. 2023 Patient reports sitting for one hour, but with increased ankle pain post, which decreased by 1/2 post manual therapy and and exercise. LTG Duration 12 wks-05/31/24 One Impairment Lacks appropriate self care HEP Impairment Pt goal: - core and gluteal strength and balance. Be able to lift from 30 to 45. - Can't sit for more than 10' due to back (tight hamstrings) . - independent in HEP. Short Term Goal (STG) Will be instructed in HEP for balance and nelda core strengthening ex's to support therapy services provided in clinic. 03/09/24: NAM 50/56, TInetti 14/16. 03/16/24: reviewed deadbug, bridge /c hip abd #3 TB, resisted lateral stepping, repeated step up- L>R glut med /pirifor weakness. STG Duration 4 wks-04/03/24 progressing Traffic Control Technician Goal (LTG) Pt will be independent with HEP of general LE strengthening and hip ROM ex's with the goal of improving pt 's perception of safety with gait. 03/16/24: progressing:bridge /c hip abd #3 TB, resisted lateral stepping, repeated step up- L>R glut med/pirifor weakness. 04/07/2024 Seated hip abd with band added to HEP 04/09/2024 Added stretching HS /c AP, and AROM knee flexion to HEP LTG Duration 12 wks-05/31/24 progressing Assessment Summary Assessment 73 yo male s/p franci SI fusion/ lock (R-10/19, L-01/18) with: pain in franci hips worse first in AM; franci LBP (sacral level) worse in pm, bilateral ankle pain, franci foot neuropathy, R drop foot, decr'd hip mobility , weakness of the hips and core, Patient reports ankle pain is 1/2 of the intensty of , and back pain is much better end of session. Massage helped at the time, but relief did not linger on; therefore focus core stability, proper posturing w/ex and strengthening/balance. Physical Therapy Plan Frequency and Duration Frequency of Treatment 2x/Week Duration of treatment (weeks) 12 Plan of Care Start Date 03/06/24 Plan of Care End Date 05/31/24 Next Visit Focus/Plan Next Note Type Treatment Note Next Visit Plan See Precautions. Next: continue with balance training, Cont gely stretch/ edge of bed in clinic. Exer: add R AB strengthening; add trunk SB/Rot strength, progress LE: L flex/ER/IR, franci AD strengthening start Functional strengthening : lifting & semi tandem, functional balance. Exer: Improve Hip Ext ROM, cont core nelda abdominal. POC: Decrease pain franci LB/ hips with Core/hip stabilization/strengthening; painfree hip mobility ex's; LB /hip ST;, transfer training ( hip hinging); FOCUS ON SELF pain mgmt; on stationary bike & ADLs; general conditioning if tolerated; and improve balance.
--- NOTE | 2024-04-16 15:40 | PT.OTN ---
Current Diagnoses Other chronic pain (04/16/24) Low back pain, unspecified (04/16/24) Neuralgia and neuritis, unspecified (04/16/24) Other specified postprocedural states (04/16/24) Physical Therapy Treatment Note PT-OP-A Visit Information Start: 03/05/24 16:26 Freq: Status: Active Protocol: Document 04/16/24 14:33 LRN (Rec: 04/16/24 15:37 LRN [id number]) Out-Patient Physical Therapy Visit Information Visit Information Visit Type Treatment Note Visit Start Time 14:33 Visit Stop Time 15:21 Visit Number 8 Evaluation Information Evaluation Date 03/06/24 Precautions Precautions TAPE ALLERGY. PMH: Anterior L YANELY-07/20, No Bending Lifting Twisting (told after SI lock surgery - R 10/04/2023, L 01/18) - told recover time after surgery 6 months by different physician. PT-OP-B Current Condition Start: 03/05/24 16:26 Freq: Status: Active Protocol: Document 03/06/24 11:18 LRN (Rec: 03/06/24 12:21 LRN [id number]) Current Condition History of Current Condition Onset Date 10/2023 Current Complaints SI pain, lateral hip and posterior hip/pelvic pain History of Current Condition Pt reportedly has had a sequence of surgeries in [place], starting 8 yrs ago and hasn't been able to get back into condition since. Last 2 surgeries were SI locks/ fusions with pinnings R side Sep 2023, L side 12/2023. Has pain on both sides different than prior to surgery. Expected outcome was relief of pain with transition (most standing up). His complaints now are pain that wakes him up in the morning, lateral hip and lateral/posterior pelvic pain. LBP starts later in the day. Pt moved to [facility] Aug 2023. 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 Prior Treatments and Tests Post surgical rehab in [place] after each SI lock/ fusion surgeries, both inpt and outpt rehab. Treatment Goals Patient/Caregiver Goals Pt goal: - core and gluteal strengthening and balance training. Be able to lift from 30-45 lbs. - Sit for more than 10' due to back (tight hamstrings). - independent in HEP. Current Functional Impairments (Reported) Functional Limitations- ADL's Stationary bike 6x/week - 15'/ day. 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 PT-OP-C Subjective Start: 03/05/24 16:26 Freq: Status: Active Protocol: Document 04/16/24 14:33 LRN (Rec: 04/16/24 15:37 LRN [id number]) OP-PT Subjective Patient Comments Patient Comments Uncomfortable today, routine is off because his daughter is visiting. PT-OP-H Neuro Start: 03/05/24 16:26 Freq: Status: Active Protocol: Document 04/14/24 13:47 LRN (Rec: 04/14/24 16:25 LRN [id number]) Sensation Evaluation Location Details Right Lower Leg Light Touch Impaired Comments Summary Comments Decreased sensation of R lower leg from the top of the leg brace distally and from briscoe to brace upright stay. PT-OP-J Posture/Palpation/Skin Start: 03/05/24 16:26 Freq: Status: Active Protocol: Document 03/06/24 11:18 LRN (Rec: 03/06/24 12:21 LRN [id number]) Posture Evaluation Position Standing Head/C-Spine Posture Forward Head T-Spine Posture Increased Kyphosis L-Spine Posture Flattened Shoulder Posture (R) Elevated Comments Posture Comments Head shifted left, R shoulder elevated, protruding R ACJ, very slight anterior pelvic tilt, wide stance. Palpation Assessment Location Low back Palpation Location L paraspinasl ~T6-T12 Palpation Findings Muscle Guarding PT-OP-K Range of Motion Start: 03/05/24 16:26 Freq: Status: Active Protocol: Document 04/02/24 11:21 LRN (Rec: 04/02/24 12:20 LRN [id number]) Hip Goniometric Range of Motion Hip Right Active Testing Position Supine Straight Leg Raise 75 Extension 2 Internal Rotation 40 External Rotation 50 Left Active Testing Position Supine Straight Leg Raise 75 Extension 0 Internal Rotation 30 External Rotation 55 PT-OP-M Strength Start: 03/05/24 16:26 Freq: Status: Active Protocol: Document 03/06/24 11:18 LRN (Rec: 03/06/24 12:21 LRN [id number]) Trunk Strength Trunk Manual Muscle Testing Core Stabilization Mild to moderate loss of core stability as noted with MMT of LE's (primarily with flex and rotation). Hip Strength Hip Manual Muscle Testing Right Abduction 4 Good Adduction 2- Poor- Comments Hip strength is 5/5 except as indicated above. Left Flexion (L2) 4+ Good+ Adduction 2 Poor External Rotation 3 Fair Internal Rotation 3 Fair Comments Hip strength is 5/5 except as indicated above. PT-OP-Q Treatments Start: 03/05/24 16:26 Freq: Status: Active Protocol: Document 04/16/24 14:33 LRN (Rec: 04/16/24 15:37 LRN [id number]) Cardio Equipment Recumbent Bicycle Duration (Minutes) 11 Resistance 4 x 2', 6 x 3', 8 x 6' Seat Position 8 Therapeutic Exercises Supine Exercises Hip AB Supine Exercise Name Sliding leg out leading with heel Side bilateral Reps/Minutes 6' Comments Assist to start for propr mvmt trng. SLR Supine Exercise Name TA tight to start Side bilateral Reps/Minutes 10x each hamstring stretch Supine Exercise Name from hooklying with ankle pumps on with knee flexion X 5 Side bilateral Reps/Minutes 60 seconds X 1 LLE, x2 RLE. Comments Extra time taken to determine max mechelle ex positioning hip flexor stretch Supine Exercise Name edge of mat Side bilateral Reps/Minutes one minute each LE, f/b single leg nelda glut squeeze (8') Comments Extra time for positioning throughout stretch, L is tighter than R Hip ER/IR Side bilateral Sidelying Exercises Hip AB Sidelying Exercise Name Assisted hip AB Side bilateral Reps/Minutes 15x Reverse clamshell Sidelying Exercise Name Foot lifts Side bilateral Comments cued for arch inback/TA tight, xtra time for training & position cuing Clamshell Side bilateral Comments cuing to ASIS/TA to keep hips from rolling posteriorly during lift Hip AD Side bilateral Reps/Minutes 10x 2 Comments Much Extra time and cuing and training for positioning Self-Care/Home Management Treatment Activities Self-Care/Home Management Activities Issued & reviewed HEP: Hip strengthening: hip AB/AD (sup & sidelie), Clamshell/Reverse clamshell, SLR, Bridge. Extra time taken for review of ex's indicating duplicate ex but in diffent positions and to stress use of core isometric holding with ex's. PT-OP-T Assessment and Plan Start: 03/05/24 16:26 Freq: Status: Active Protocol: Document 04/16/24 14:33 LRN (Rec: 04/16/24 15:37 LRN [id number]) Physical Therapy Assessment Goals Three Impairment Decreased functional strength for performing home activities of lifting. Impairment Pt goal: - core and gluteal strength and balance. Be able to lift from 30 to 45. - Can't sit for more than 10' due to back (tight hamstrings) . - independent in HEP. Short Term Goal (STG) Pt will be educated in proper body mechanics for DLS and Mtz to Safe Movement. 04/02/24: Pt training/ education in body mechanics for ADLs & Proper Posture for Mtz to Safe Movement. STG Duration 4 wks-04/03/24 (04/02/24: MET GOAL) Pit Boss Goal (LTG) Pt will be able to tolerate lifting 30#-45# with modification of lifting technique for functional activities at home. 03/16/24: incorporated straight back hip hinge in mirror deadlift 20# (2-10# DB). LTG Duration 12 wks-05/31/24 progressing Two Impairment Decreased sitting tolerance due to pain Impairment Can't sit for more than 10' due to back. Short Term Goal (STG) Improve LE mobility (tight hamstrings) and if tolerated neural mobility. 03/16/24: added standing bottoms up active HS stretch ( hands on step, knee ext). STG Duration 4 wks-04/03/24 progressing Pit Boss Goal (LTG) Pt will be able to improve functional sitting of 30-60' with modification of sitting or performing sitting mobility ex's to decrease pain. 2023 Patient reports sitting for one hour, but with increased ankle pain post, which decreased by 1/2 post manual therapy and and exercise. LTG Duration 12 wks-05/31/24 One Impairment Lacks appropriate self care HEP Impairment Pt goal: - core and gluteal strength and balance. Be able to lift from 30 to 45. - Can't sit for more than 10' due to back (tight hamstrings) . - independent in HEP. Short Term Goal (STG) Will be instructed in HEP for balance and nelda core strengthening ex's to support therapy services provided in clinic. 03/09/24: NAM 50/56, Radha 14/16. 03/16/24: reviewed deadbug, bridge /c hip abd #3 TB, resisted lateral stepping, repeated step up- L>R glut med /pirifor weakness. STG Duration 4 wks-04/03/24 progressing Pit Boss Goal (LTG) Pt will be independent with HEP of general LE strengthening and hip ROM ex's with the goal of improving pt 's perception of safety with gait. 03/16/24: progressing:bridge /c hip abd #3 TB, resisted lateral stepping, repeated step up- L>R glut med/pirifor weakness. 04/07/2024 Seated hip abd with band added to HEP 04/09/2024 Added stretching HS /c AP, and AROM knee flexion to HEP 04/16/24: HEP: Hip strengthening: hip AB/AD (sup & sidelie), Clamshell/Reverse clamshell, SLR, Bridge. LTG Duration 12 wks-05/31/24 progressing 04/16/24 Assessment Summary Assessment 73 yo male s/p franci SI fusion/ lock (R-10/19, L-01/18) with: pain in franci hips worse first in AM; franci LBP (sacral level) worse in pm, bilateral ankle pain, franci foot neuropathy, R drop foot, decr'd hip mobility , weakness of the hips/core. Today, pt wanted to do more LE ex on recumbent bike and tolerated it well w/o complaints of fatigue or pain. Hip AD is weaker on Left and AB is quite difficult with RLE . Constant cuing needed for Core tightening w/ex's. Hamstring mobility appears to be improving. Physical Therapy Plan Frequency and Duration Frequency of Treatment 2x/Week Duration of treatment (weeks) 12 Plan of Care Start Date 03/06/24 Plan of Care End Date 05/31/24 Next Visit Focus/Plan Next Note Type Treatment Note Next Visit Plan See Precautions. Next: Assess for improvement in hamstring mobility (PSLR). continue with balance training, Cont gely stretch/ edge of bed in clinic. Review R AB strengthening Exer: Add trunk SB/Rot strength (caution for electrodes and SI locks); progress LE: L flex/ER/IR, franci AD strengthening. HEP for balance and nelda core strengthening ex's. start Functional strengthening : lifting & semi tandem, functional balance. Exer: Improve Hip Ext ROM, cont core nelda abdominal. POC: Decrease pain franci LB/ hips with Core/hip stabilization/strengthening; painfree hip mobility ex's; LB /hip ST;, transfer training ( hip hinging); FOCUS ON SELF pain mgmt; on stationary bike & ADLs; general conditioning if tolerated; and improve balance.
--- NOTE | 2024-04-24 10:30 | PT.OTN ---
Current Diagnoses Other chronic pain (04/24/24) Low back pain, unspecified (04/24/24) Neuralgia and neuritis, unspecified (04/24/24) Other specified postprocedural states (04/24/24) Physical Therapy Treatment Note PT-OP-A Visit Information Start: 03/05/24 16:26 Freq: Status: Active Protocol: Document 04/24/24 09:50 SP (Rec: 04/24/24 10:32 SP [id number]) Out-Patient Physical Therapy Visit Information Visit Information Visit Type Treatment Note Visit Start Time 09:50 Visit Stop Time 10:30 Visit Number 10 Number of ASSISTANT STRENGTH COACH Visits 1 Evaluation Information Evaluation Date 03/06/24 Precautions Precautions TAPE ALLERGY. PMH: Anterior L YANELY-07/20, No Bending Lifting Twisting (told after SI lock surgery - R 10/04/2023, L 01/18) - told recover time after surgery 6 months by different physician. PT-OP-B Current Condition Start: 03/05/24 16:26 Freq: Status: Active Protocol: Document 03/06/24 11:18 LRN (Rec: 03/06/24 12:21 LRN [id number]) Current Condition History of Current Condition Onset Date 10/2023 Current Complaints SI pain, lateral hip and posterior hip/pelvic pain History of Current Condition Pt reportedly has had a sequence of surgeries in [place], starting 8 yrs ago and hasn't been able to get back into condition since. Last 2 surgeries were SI locks/ fusions with pinnings R side Sep 2023, L side 12/2023. Has pain on both sides different than prior to surgery. Expected outcome was relief of pain with transition (most standing up). His complaints now are pain that wakes him up in the morning, lateral hip and lateral/posterior pelvic pain. LBP starts later in the day. 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 Treatment Goals Patient/Caregiver Goals Pt goal: - core and gluteal strengthening and balance training. Be able to lift from 30-45 lbs. - Sit for more than 10' due to back (tight hamstrings). - independent in HEP. Current Functional Impairments (Reported) Functional Limitations- ADL's Stationary bike 6x/week - 15'/ day. 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 PT-OP-C Subjective Start: 03/05/24 16:26 Freq: Status: Active Protocol: Document 04/24/24 09:50 SP (Rec: 04/24/24 10:32 SP [id number]) OP-PT Subjective Patient Comments Patient Comments Pt reported felt ok after last time. Better standing than sittting, sit to long wipes him out. Good lumbar support in car. Stands still when initial stands to loosen up. Awaiting data of spinal MRI & CT scan to Dr Morgan to allow set up epidural for pain control support. Was busy with daughter in town and driving her to . So only performed HEP since . PT-OP-H Neuro Start: 03/05/24 16:26 Freq: Status: Active Protocol: Document 04/14/24 13:47 LRN (Rec: 04/14/24 16:25 LRN [id number]) Sensation Evaluation Location Details Right Lower Leg Light Touch Impaired Comments Summary Comments Decreased sensation of R lower leg from the top of the leg brace distally and from briscoe to brace upright stay. PT-OP-J Posture/Palpation/Skin Start: 03/05/24 16:26 Freq: Status: Active Protocol: Document 03/06/24 11:18 LRN (Rec: 03/06/24 12:21 LRN [id number]) Posture Evaluation Position Standing Head/C-Spine Posture Forward Head T-Spine Posture Increased Kyphosis L-Spine Posture Flattened Shoulder Posture (R) Elevated Comments Posture Comments Head shifted left, R shoulder elevated, protruding R ACJ, very slight anterior pelvic tilt, wide stance. Palpation Assessment Location Low back Palpation Location L paraspinasl ~T6-T12 Palpation Findings Muscle Guarding PT-OP-K Range of Motion Start: 03/05/24 16:26 Freq: Status: Active Protocol: Document 04/24/24 09:50 SP (Rec: 04/24/24 11:50 SP [id number]) Hip Goniometric Range of Motion Hip Right Active Testing Position Supine Straight Leg Raise 75 Comments PSLR Left Active Testing Position Supine Straight Leg Raise 75 Comments PSLR PT-OP-M Strength Start: 03/05/24 16:26 Freq: Status: Active Protocol: Document 03/06/24 11:18 LRN (Rec: 03/06/24 12:21 LRN [id number]) Trunk Strength Trunk Manual Muscle Testing Core Stabilization Mild to moderate loss of core stability as noted with MMT of LE's (primarily with flex and rotation). Hip Strength Hip Manual Muscle Testing Right Abduction 4 Good Adduction 2- Poor- Comments Hip strength is 5/5 except as indicated above. Left Flexion (L2) 4+ Good+ Adduction 2 Poor External Rotation 3 Fair Internal Rotation 3 Fair Comments Hip strength is 5/5 except as indicated above. PT-OP-Q Treatments Start: 03/05/24 16:26 Freq: Status: Active Protocol: Document 04/24/24 09:50 SP (Rec: 04/24/24 10:32 SP [id number]) Cardio Equipment Recumbent Bicycle Duration (Minutes) 11 Resistance 4 x 2', 6 x 3', 8 x 6' Seat Position 8 Other 4.63 miles Therapeutic Exercises Supine Exercises hip flexor stretch Supine Exercise Name edge of elevated table Side bilateral Equipment Used *states not able do home- surfaces to low, bed to soft Reps/Minutes one minute each LE, f/b single leg nelda glut squeeze (5SH-10 reps) Comments Time for positioning throughout stretch, L is tighter than R Sidelying Exercises Hip AB Sidelying Exercise Name AROM hip AB Side bilateral Equipment Used lean into kick stand hand front, 1 pillow between lower legs Reps/Minutes 15x Comments cued TKE&DF&hipIR: R weaker than L but increase range /c reps Reverse clamshell Sidelying Exercise Name Foot lifts Side bilateral Equipment Used 1 pillow between lower legs Reps/Minutes x15 Comments cued for arch inback/TA tight Clamshell Side bilateral Equipment Used 1 pillow between lower legs Reps/Minutes x15 reps Comments improved self ASIS/TA to keep hips from rolling posteriorly during lift PT-OP-T Assessment and Plan Start: 03/05/24 16:26 Freq: Status: Active Protocol: Document 04/24/24 09:50 SP (Rec: 04/24/24 10:32 SP [id number]) Physical Therapy Assessment Goals Three Impairment Decreased functional strength for performing home activities of lifting. Impairment Pt goal: - core and gluteal strength and balance. Be able to lift from 30 to 45. - Can't sit for more than 10' due to back (tight hamstrings) . - independent in HEP. Short Term Goal (STG) Pt will be educated in proper body mechanics for DLS and Mtz to Safe Movement. 04/02/24: Pt training/ education in body mechanics for ADLs & Proper Posture for Mtz to Safe Movement. STG Duration 4 wks-04/03/24 (04/02/24: MET GOAL) Data Administrator Goal (LTG) Pt will be able to tolerate lifting 30#-45# with modification of lifting technique for functional activities at home. 03/16/24: incorporated straight back hip hinge in mirror deadlift 20# (2-10# DB). LTG Duration 12 wks-05/31/24 progressing Two Impairment Decreased sitting tolerance due to pain Impairment Can't sit for more than 10' due to back. Short Term Goal (STG) Improve LE mobility (tight hamstrings) and if tolerated neural mobility. 03/16/24: added standing bottoms up active HS stretch ( hands on step, knee ext). STG Duration 4 wks-04/03/24 progressing Data Administrator Goal (LTG) Pt will be able to improve functional sitting of 30-60' with modification of sitting or performing sitting mobility ex's to decrease pain. 2023 Patient reports sitting for one hour, but with increased ankle pain post, which decreased by 1/2 post manual therapy and and exercise. LTG Duration 12 wks-05/31/24 One Impairment Lacks appropriate self care HEP Impairment Pt goal: - core and gluteal strength and balance. Be able to lift from 30 to 45. - Can't sit for more than 10' due to back (tight hamstrings) . - independent in HEP. Short Term Goal (STG) Will be instructed in HEP for balance and nelda core strengthening ex's to support therapy services provided in clinic. 03/09/24: NAM 50/56, TInetti 14/16. 03/16/24: reviewed deadbug, bridge /c hip abd #3 TB, resisted lateral stepping, repeated step up- L>R glut med /pirifor weakness. STG Duration 4 wks-04/03/24 progressing Data Administrator Goal (LTG) Pt will be independent with HEP of general LE strengthening and hip ROM ex's with the goal of improving pt 's perception of safety with gait. 03/16/24: progressing:bridge /c hip abd #3 TB, resisted lateral stepping, repeated step up- L>R glut med/pirifor weakness. 04/07/2024 Seated hip abd with band added to HEP 04/09/2024 Added stretching HS /c AP, and AROM knee flexion to HEP 04/16/24: HEP: Hip strengthening: hip AB/AD (sup & sidelie), Clamshell/Reverse clamshell, SLR, Bridge. LTG Duration 12 wks-05/31/24 progressing 04/16/24 Assessment Summary Assessment Pt improved form with use ed kickstand top arm on table for hip abd HEP review, reduction to occ cues for stacked sidelying alignment for focused hip abd strengthening, no pain muscle tiring end tx. Discussed perform am before get up for hip support prior to stand and pain control. Zafar stretch with folded blanket EOB to allow perform, does do glut press on couch, ed TA no LB arch recruitment discomfort. Physical Therapy Plan Frequency and Duration Frequency of Treatment 2x/Week Duration of treatment (weeks) 12 Plan of Care Start Date 03/06/24 Plan of Care End Date 05/31/24 Therapeutic Interventions Therapeutic Interventions Balance Training,Gait Training ,Home Exercise Program,Manual Therapy,Self-Care/Home Management,Soft Tissue Mobilization,Therapeutic Activities,Therapeutic Exercises Modalities Cold Pack/Ice Massage,Hot Packs Next Visit Focus/Plan Next Note Type Progress Note Next Visit Plan *11th visit PN next tx 04/28/24. See Precautions. Next: Ask performance R>L hip abd HEP assist less pain sit to long. Continue with balance training, Check alternative home zafar stretch/assimulate edge of bed in clinic. Exer: Add trunk SB/Rot strength (caution for electrodes and SI locks); progress LE: L flex/ER/IR, franci AD strengthening. HEP for balance and nelda core strengthening ex's. start Functional strengthening : lifting & semi tandem, functional balance. Exer: Improve Hip Ext ROM, cont core nelda abdominal. POC: Decrease pain franci LB/ hips with Core/hip stabilization/strengthening; painfree hip mobility ex's; LB /hip ST;, transfer training ( hip hinging); FOCUS ON SELF pain mgmt; on stationary bike & ADLs; general conditioning if tolerated; and improve balance.
--- NOTE | 2024-04-28 15:55 | PT.OTN ---
Current Diagnoses Other chronic pain (04/28/24) Low back pain, unspecified (04/28/24) Neuralgia and neuritis, unspecified (04/28/24) Other specified postprocedural states (04/28/24) Physical Therapy Treatment Note PT-OP-A Visit Information Start: 03/05/24 16:26 Freq: Status: Active Protocol: Document 04/28/24 14:37 LRN (Rec: 04/28/24 15:49 LRN [id number]) Out-Patient Physical Therapy Visit Information Visit Information Visit Type Progress Note Visit Start Time 14:37 Visit Stop Time 15:20 Visit Number 11 Evaluation Information Evaluation Date 03/06/24 Precautions Precautions TAPE ALLERGY. PMH: Anterior L YANELY-07/20, No Bending Lifting Twisting (told after SI lock surgery - R 10/04/2023, L 01/18) - told recover time after surgery 6 months by different physician. PT-OP-B Current Condition Start: 03/05/24 16:26 Freq: Status: Active Protocol: Document 03/06/24 11:18 LRN (Rec: 03/06/24 12:21 LRN [id number]) Current Condition History of Current Condition Onset Date 10/2023 Current Complaints SI pain, lateral hip and posterior hip/pelvic pain History of Current Condition Pt reportedly has had a sequence of surgeries in [place], starting 8 yrs ago and hasn't been able to get back into condition since. Last 2 surgeries were SI locks/ fusions with pinnings R side Sep 2023, L side 12/2023. Has pain on both sides different than prior to surgery. Expected outcome was relief of pain with transition (most standing up). His complaints now are pain that wakes him up in the morning, lateral hip and lateral/posterior pelvic pain. LBP starts later in the day. Pt moved to [facility] Aug 2023. 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 Prior Treatments and Tests Post surgical rehab in [place] after each SI lock/ fusion surgeries, both inpt and outpt rehab. Treatment Goals Patient/Caregiver Goals Pt goal: - core and gluteal strengthening and balance training. Be able to lift from 30-45 lbs. - Sit for more than 10' due to back (tight hamstrings). - independent in HEP. Current Functional Impairments (Reported) Functional Limitations- ADL's Stationary bike 6x/week - 15'/ day. 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 PT-OP-C Subjective Start: 03/05/24 16:26 Freq: Status: Active Protocol: Document 04/28/24 14:37 LRN (Rec: 04/28/24 15:49 LRN [id number]) OP-PT Subjective Patient Comments Patient Comments Getting and injection in April for his nerve pain. States he is more active than when he started, and has been more on his feet and doing more. Patient Questionnaires Lower Extremity Functional Scale LEFS Score 42 LEFS Impairment 40 to 59% Impaired (Score 32- 47) Oswestry Low Back Index Oswestry Score 46 Oswestry Impairment 40 to 59% Impaired (Score 40- 59) OP-PT Pain Assessment Pain Assessment Grid Paper Pain Assessment Grid Completed Yes Location R leg Intensity 6 Description- Other Nerve pain, still sensitive Anterior Franci ankles Pain Location Details Anterior franci ankles Intensity 4 Low back Pain Location Details Low Back Intensity 5 Scale Used Numeric (0 - 10) PT-OP-H Neuro Start: 03/05/24 16:26 Freq: Status: Active Protocol: Document 04/14/24 13:47 LRN (Rec: 04/14/24 16:25 LRN [id number]) Sensation Evaluation Location Details Right Lower Leg Light Touch Impaired Comments Summary Comments Decreased sensation of R lower leg from the top of the leg brace distally and from briscoe to brace upright stay. PT-OP-J Posture/Palpation/Skin Start: 03/05/24 16:26 Freq: Status: Active Protocol: Document 03/06/24 11:18 LRN (Rec: 03/06/24 12:21 LRN [id number]) Posture Evaluation Position Standing Head/C-Spine Posture Forward Head T-Spine Posture Increased Kyphosis L-Spine Posture Flattened Shoulder Posture (R) Elevated Comments Posture Comments Head shifted left, R shoulder elevated, protruding R ACJ, very slight anterior pelvic tilt, wide stance. Palpation Assessment Location Low back Palpation Location L paraspinasl ~T6-T12 Palpation Findings Muscle Guarding PT-OP-K Range of Motion Start: 03/05/24 16:26 Freq: Status: Active Protocol: Document 04/24/24 09:50 SP (Rec: 04/24/24 11:50 SP [id number]) Hip Goniometric Range of Motion Hip Right Active Testing Position Supine Straight Leg Raise 75 Comments PSLR Left Active Testing Position Supine Straight Leg Raise 75 Comments PSLR PT-OP-M Strength Start: 03/05/24 16:26 Freq: Status: Active Protocol: Document 03/06/24 11:18 LRN (Rec: 03/06/24 12:21 LRN [id number]) Trunk Strength Trunk Manual Muscle Testing Core Stabilization Mild to moderate loss of core stability as noted with MMT of LE's (primarily with flex and rotation). Hip Strength Hip Manual Muscle Testing Right Abduction 4 Good Adduction 2- Poor- Comments Hip strength is 5/5 except as indicated above. Left Flexion (L2) 4+ Good+ Adduction 2 Poor External Rotation 3 Fair Internal Rotation 3 Fair Comments Hip strength is 5/5 except as indicated above. PT-OP-Q Treatments Start: 03/05/24 16:26 Freq: Status: Active Protocol: Document 04/28/24 14:37 LRN (Rec: 04/28/24 15:49 LRN [id number]) Cardio Equipment Recumbent Bicycle Duration (Minutes) 10 Resistance 4 x 5', 8 x 5' Seat Position 8 Other miles Therapeutic Exercises Supine Exercises hamstring stretch Supine Exercise Name from hooklying with ankle pumps on with knee flexion X 5 Side bilateral Reps/Minutes 60 seconds X 1 LLE, x2 RLE. Comments Extra time taken to determine max mechelle ex positioning hip flexor stretch Supine Exercise Name edge of elevated table Side bilateral Equipment Used *states not able do home- surfaces to low, bed to soft Reps/Minutes one minute each LE, f/b single leg nelda glut squeeze (5SH-10 reps) Comments L is tighter than R Sidelying Exercises Hip AB Sidelying Exercise Name AROM hip AB Side bilateral Equipment Used lean into kick stand hand front, 1 pillow between lower legs Reps/Minutes 15x Comments cued TKE&DF&hipIR: R weaker than L but increase range /c reps Reverse clamshell Sidelying Exercise Name Foot lifts Side bilateral Equipment Used 1 pillow between lower legs Reps/Minutes x15 Comments cued for arch inback/TA tight Clamshell Side bilateral Equipment Used 1 pillow between lower legs Reps/Minutes x15 reps Comments improved self ASIS/TA to keep hips from rolling posteriorly during lift PT-OP-T Assessment and Plan Start: 03/05/24 16:26 Freq: Status: Active Protocol: Document 04/28/24 14:37 LRN (Rec: 04/28/24 15:49 LRN [id number]) Physical Therapy Assessment Rehab Potential Rehabilitation Potential Good Evaluation Complexity Number of Personal Factors/Comorbidities 3 or More Number of Body Systems Impaired 4 or More Clinical Presentation at Evaluation Evolving Impairments Impairments Activity Tolerance,Balance, Functional Activities,Pain, Posture,ROM,Strength Goals Three Impairment Decreased functional strength for performing home activities of lifting. Impairment Pt goal: - core and gluteal strength and balance. Be able to lift from 30 to 45. - Can't sit for more than 10' due to back (tight hamstrings) . - independent in HEP. Short Term Goal (STG) Pt will be educated in proper body mechanics for DLS and Mtz to Safe Movement. 04/02/24: Pt training/ education in body mechanics for ADLs & Proper Posture for Mtz to Safe Movement. STG Duration 4 wks-04/03/24 (04/02/24: MET GOAL) Jail Goal (LTG) Pt will be able to tolerate lifting 30#-45# with modification of lifting technique for functional activities at home. 03/16/24: incorporated straight back hip hinge in mirror deadlift 20# (2-10# DB). LTG Duration 07/24/24 progressing 03/16/24 Two Impairment Decreased sitting tolerance due to pain Impairment Can't sit for more than 10' due to back. Short Term Goal (STG) Improve LE mobility (tight hamstrings) and if tolerated neural mobility. 03/16/24: added standing bottoms up active HS stretch ( hands on step, knee ext). STG Duration 4 wks-05/29/24 progressing Combine Mechanic Goal (LTG) Pt will be able to improve functional sitting of 30-60' with modification of sitting or performing sitting mobility ex's to decrease pain. 04/09/2024 Patient reports sitting for one hour, but with increased ankle pain post, which decreased by 1/2 post manual therapy and and exercise. 04/27/24: Sitting in morning 10', in evening sit for 1 hr. LTG Duration 07/24/24 progressed in evening sitting time 04/27/24 One Impairment Lacks appropriate self care HEP Impairment Pt goal: - core and gluteal strength and balance. Be able to lift from 30 to 45. - Can't sit for more than 10' due to back (tight hamstrings) . - independent in HEP. Short Term Goal (STG) Will be instructed in HEP for balance and nelda core strengthening ex's to support therapy services provided in clinic. 03/09/24: NAM 50/56, Radha 14/16. 03/16/24: reviewed deadbug, bridge /c hip abd #3 TB, resisted lateral stepping, repeated step up- L>R glut med /pirifor weakness. STG Duration 4 wks-05/29/24 progressing 03/16/24 Combine Mechanic Goal (LTG) Pt will be independent with HEP of general LE strengthening and hip ROM ex's with the goal of improving pt 's perception of safety with gait. 03/16/24: progressing:bridge /c hip abd #3 TB, resisted lateral stepping, repeated step up- L>R glut med/pirifor weakness. 04/07/2024 Seated hip abd with band added to HEP 04/09/2024 Added stretching HS /c AP, and AROM knee flexion to HEP 04/16/24: HEP: Hip strengthening: hip AB/AD (sup & sidelie), Clamshell/Reverse clamshell, SLR, Bridge. LTG Duration 12 wks-07/24/24 progressing 04/16/24 Assessment Summary Assessment 73 yo male s/p franci SI fusion/ lock (R-09/2023, L-12/2023), initially with pain in franci hips worse first in AM; franci LBP (sacral level) worse in pm , bilateral ankle pain, franci foot neuropathy, R drop foot, decr'd hip mobility, weakness of the hips/core. Today he demonstrates difficulty with R hip AB & core stability due to wgt of ankle brace. He is having less pain in his LB and ankles; lower leg neural pain is same. His function has improved per JAYMIE (note pt' s scoring initially was mistakenly listed on a 50 point scale vs 100 point scale ) & LEFS scores and per pt report of increased activity. LE numbness/tingling and pain with prolonged sitting persists. As expected, the pt 's comorbidities has complicated and prolonged his rehabilitation progress. The patient is very motivated to further improve, especially with trying to improve his tolerance to sitting first thing in the morning; therefore he will benefit from skilled physcial therapy to work towards achieving the remaining above stated goals. Physical Therapy Plan Frequency and Duration Frequency of Treatment 2x/Week Duration of treatment (weeks) 12 Plan of Care Start Date 04/28/24 Plan of Care End Date 07/24/24 Therapeutic Interventions Therapeutic Interventions Balance Training,Gait Training ,Home Exercise Program,Manual Therapy,Self-Care/Home Management,Soft Tissue Mobilization,Therapeutic Activities,Therapeutic Exercises Modalities Cold Pack/Ice Massage,Hot Packs Next Visit Focus/Plan Next Note Type Treatment Note Next Visit Plan See Precautions. Next: HEP needed to assist to lessen pain if sit to long ( lumbar extension/neutral spine positioning in sitting). Add alternative home gely stretch of doorway Ilipsoas stretch, improve Hip Ext ROM. Continue Core strengthening (NO lumbar rot/SB due to surgical hx), balance training , hip strengthening, work posturing position training/ strengthening. Exer: Add trunk NELDA abdominal/SB/Rot strengthening (caution for electrodes and SI locks); progress LE: L flex/ER/IR, franci AD strengthening. HEP for balance and nelda core strengthening ex's. Start Functional strengthening : lifting & semi tandem, functional balance. POC: Decrease pain franci LB/ hips with Core/hip stabilization/strengthening; painfree hip mobility ex's; LB /hip ST;, transfer training ( hip hinging); FOCUS ON SELF pain mgmt; on stationary bike & ADLs; general conditioning if tolerated; and improve balance.
--- NOTE | 2024-05-05 14:39 | PT.OTN ---
Current Diagnoses Other chronic pain (05/05/24) Low back pain, unspecified (05/05/24) Neuralgia and neuritis, unspecified (05/05/24) Other specified postprocedural states (05/05/24) Physical Therapy Treatment Note PT-OP-A Visit Information Start: 03/05/24 16:26 Freq: Status: Active Protocol: Document 05/05/24 13:49 LRN (Rec: 05/05/24 14:38 LRN [id number]) Out-Patient Physical Therapy Visit Information Visit Information Visit Type Treatment Note Visit Start Time 13:49 Visit Stop Time 14:27 Visit Number 12 Evaluation Information Evaluation Date 03/06/24 Precautions Precautions TAPE ALLERGY. PMH: Anterior L YANELY-07/20, No Bending Lifting Twisting (told after SI lock surgery - R 10/04/2023, L 01/18) - told recover time after surgery 6 months by different physician. PT-OP-B Current Condition Start: 03/05/24 16:26 Freq: Status: Active Protocol: Document 03/06/24 11:18 LRN (Rec: 03/06/24 12:21 LRN [id number]) Current Condition History of Current Condition Onset Date 10/2023 Current Complaints SI pain, lateral hip and posterior hip/pelvic pain History of Current Condition Pt reportedly has had a sequence of surgeries in [place], starting 8 yrs ago and hasn't been able to get back into condition since. Last 2 surgeries were SI locks/ fusions with pinnings R side Sep 2023, L side 12/2023. Has pain on both sides different than prior to surgery. Expected outcome was relief of pain with transition (most standing up). His complaints now are pain that wakes him up in the morning, lateral hip and lateral/posterior pelvic pain. LBP starts later in the day. 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 Treatment Goals Patient/Caregiver Goals Pt goal: - core and gluteal strengthening and balance training. Be able to lift from 30-45 lbs. - Sit for more than 10' due to back (tight hamstrings). - independent in HEP. Current Functional Impairments (Reported) Functional Limitations- ADL's Stationary bike 6x/week - 15'/ day. 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 PT-OP-C Subjective Start: 03/05/24 16:26 Freq: Status: Active Protocol: Document 05/05/24 13:49 LRN (Rec: 05/05/24 14:38 LRN [id number]) OP-PT Subjective Patient Comments Patient Comments Requests early leave due to having spinal stimulator adjusted. Feels better with stretching. LB/hip pain comes and goes, right now good, On stationary ex bike is less numb in R leg after cycling. LBP is 3/10, franci hips 0/10, in the afternoon uses Lidocaine patches if pain worsens. Today able to sit most of the time from 6:30a-11am. PT-OP-H Neuro Start: 03/05/24 16:26 Freq: Status: Active Protocol: Document 04/14/24 13:47 LRN (Rec: 04/14/24 16:25 LRN [id number]) Sensation Evaluation Location Details Right Lower Leg Light Touch Impaired Comments Summary Comments Decreased sensation of R lower leg from the top of the leg brace distally and from briscoe to brace upright stay. PT-OP-J Posture/Palpation/Skin Start: 03/05/24 16:26 Freq: Status: Active Protocol: Document 03/06/24 11:18 LRN (Rec: 03/06/24 12:21 LRN [id number]) Posture Evaluation Position Standing Head/C-Spine Posture Forward Head T-Spine Posture Increased Kyphosis L-Spine Posture Flattened Shoulder Posture (R) Elevated Comments Posture Comments Head shifted left, R shoulder elevated, protruding R ACJ, very slight anterior pelvic tilt, wide stance. Palpation Assessment Location Low back Palpation Location L paraspinasl ~T6-T12 Palpation Findings Muscle Guarding PT-OP-K Range of Motion Start: 03/05/24 16:26 Freq: Status: Active Protocol: Document 04/24/24 09:50 SP (Rec: 04/24/24 11:50 SP [id number]) Hip Goniometric Range of Motion Hip Right Active Testing Position Supine Straight Leg Raise 75 Comments PSLR Left Active Testing Position Supine Straight Leg Raise 75 Comments PSLR PT-OP-M Strength Start: 03/05/24 16:26 Freq: Status: Active Protocol: Document 03/06/24 11:18 LRN (Rec: 03/06/24 12:21 LRN [id number]) Trunk Strength Trunk Manual Muscle Testing Core Stabilization Mild to moderate loss of core stability as noted with MMT of LE's (primarily with flex and rotation). Hip Strength Hip Manual Muscle Testing Right Abduction 4 Good Adduction 2- Poor- Comments Hip strength is 5/5 except as indicated above. Left Flexion (L2) 4+ Good+ Adduction 2 Poor External Rotation 3 Fair Internal Rotation 3 Fair Comments Hip strength is 5/5 except as indicated above. PT-OP-Q Treatments Start: 03/05/24 16:26 Freq: Status: Active Protocol: Document 05/05/24 13:49 LRN (Rec: 05/05/24 14:38 LRN [id number]) Therapeutic Exercises Supine Exercises Hip AB Supine Exercise Name Sliding leg out leading with heel Side bilateral Equipment Used Sliding sheet Reps/Minutes 2' each Comments Assist to start for propr mvmt trng. SLR Supine Exercise Name TA tight to start Side bilateral Reps/Minutes 15x Comments Cued to keep TA tight with self phys monitoring. hamstring stretch Supine Exercise Name from hooklying with ankle pumps on with knee flexion X 5 Side bilateral Reps/Minutes 60 seconds X 1 LLE, x2 RLE. Comments Extra time taken to determine max mechelle ex positioning hip flexor stretch Supine Exercise Name edge of elevated table Side bilateral Equipment Used *not able do home Reps/Minutes one minute each LE, f/b single leg nelda glut squeeze (5SH-10 reps) Comments L is tighter than R PT-OP-T Assessment and Plan Start: 03/05/24 16:26 Freq: Status: Active Protocol: Document 05/05/24 13:49 LRN (Rec: 05/05/24 14:38 LRN [id number]) Physical Therapy Assessment Goals Three Impairment Decreased functional strength for performing home activities of lifting. Impairment Pt goal: - core and gluteal strength and balance. Be able to lift from 30 to 45. - Can't sit for more than 10' due to back (tight hamstrings) . - independent in HEP. Short Term Goal (STG) Pt will be educated in proper body mechanics for DLS and Mtz to Safe Movement. 04/02/24: Pt training/ education in body mechanics for ADLs & Proper Posture for Mtz to Safe Movement. STG Duration 4 wks-04/03/24 (04/02/24: MET GOAL) Penitentiary Goal (LTG) Pt will be able to tolerate lifting 30#-45# with modification of lifting technique for functional activities at home. 03/16/24: incorporated straight back hip hinge in mirror deadlift 20# (2-10# DB). LTG Duration 07/24/24 progressing 03/16/24 Two Impairment Decreased sitting tolerance due to pain Impairment Can't sit for more than 10' due to back. Short Term Goal (STG) Improve LE mobility (tight hamstrings) and if tolerated neural mobility. 03/16/24: added standing bottoms up active HS stretch ( hands on step, knee ext). STG Duration 4 wks-05/29/24 progressing Looper Operator Goal (LTG) Pt will be able to improve functional sitting of 30-60' with modification of sitting or performing sitting mobility ex's to decrease pain. 04/09/2024 Patient reports sitting for one hour, but with increased ankle pain post, which decreased by 1/2 post manual therapy and and exercise. 04/27/24: Sitting in morning 10', in evening sit for 1 hr. LTG Duration 07/24/24 progressed in evening sitting time 04/27/24 One Impairment Lacks appropriate self care HEP Impairment Pt goal: - core and gluteal strength and balance. Be able to lift from 30 to 45. - Can't sit for more than 10' due to back (tight hamstrings) . - independent in HEP. Short Term Goal (STG) Will be instructed in HEP for balance and nelda core strengthening ex's to support therapy services provided in clinic. 03/09/24: NAM 50/56, [place] 14/16. 03/16/24: reviewed deadbug, bridge /c hip abd #3 TB, resisted lateral stepping, repeated step up- L>R glut med /pirifor weakness. STG Duration 4 wks-05/29/24 progressing 03/16/24 Penitentiary Goal (LTG) Pt will be independent with HEP of general LE strengthening and hip ROM ex's with the goal of improving pt 's perception of safety with gait. 03/16/24: progressing:bridge /c hip abd #3 TB, resisted lateral stepping, repeated step up- L>R glut med/pirifor weakness. 04/07/2024 Seated hip abd with band added to HEP 04/09/2024 Added stretching HS /c AP, and AROM knee flexion to HEP 04/16/24: HEP: Hip strengthening: hip AB/AD (sup & sidelie), Clamshell/Reverse clamshell, SLR, Bridge. LTG Duration 12 wks-07/24/24 progressing 04/16/24 Assessment Summary Assessment 73 yo male s/p franci SI fusion/ lock (R-09/2023, L-12/2023), initially with pain in franci hips worse first in AM but today no c/o hip pain. He has franci LBP (sacral level) worse in pm that in the evening he uses a pain patch to ease the pain. Initial c/o's bilateral ankle pain, franci foot neuropathy, R drop foot, decr' d hip mobility, weakness of the hips/core. Today he shows cont'd difficulty with R hip AB, core stability/LE strength improved as he tols more ex reps w/SLR & hip AB strengthening. LB is less; lower leg neural pain is same. He appears to tolerate sitting longer as long as he encorporates HEP stretches between sitting and standing. Physical Therapy Plan Frequency and Duration Frequency of Treatment 2x/Week Duration of treatment (weeks) 12 Plan of Care Start Date 04/28/24 Plan of Care End Date 07/24/24 Next Visit Focus/Plan Next Note Type Treatment Note Next Visit Plan See Precautions. Next: Add HEP lumbar nelda extension in neutral spine positioning in sitting, & Add trunk NELDA abdominal/SB/Rot strengthening (caution for electrodes and SI locks) Add alternative home gely stretch of doorway Ilipsoas stretch, improve Hip Ext ROM. Continue Core strengthening (NO lumbar rot/SB due to surgical hx), balance training , hip strengthening, work posturing position training/ strengthening. Exer: progress LE: L flex/ER/ IR, franci AD strengthening. HEP for balance and nelda core strengthening ex's. Start Functional strengthening : lifting & semi tandem, functional balance. POC: Decrease pain franci LB/ hips & Core/hip stabilization/ strengthening; painfree hip mobility ex's; LB/hip ST;, transfer training (hip hinging ); FOCUS ON SELF pain mgmt; on stationary bike & ADLs; general conditioning if tolerated; and improve balance .
--- NOTE | 2024-05-11 15:44 | PT.OTN ---
Current Diagnoses Other chronic pain (05/11/24) Low back pain, unspecified (05/11/24) Neuralgia and neuritis, unspecified (05/11/24) Other specified postprocedural states (05/11/24) Physical Therapy Treatment Note PT-OP-A Visit Information Start: 03/05/24 16:26 Freq: Status: Active Protocol: Document 05/11/24 14:31 LRN (Rec: 05/11/24 15:43 LRN [id number]) Out-Patient Physical Therapy Visit Information Visit Information Visit Type Treatment Note Visit Start Time 14:31 Visit Stop Time 15:16 Visit Number 13 Evaluation Information Evaluation Date 03/06/24 Precautions Precautions TAPE ALLERGY. PMH: Anterior L YANELY-07/20, No Bending Lifting Twisting (told after SI lock surgery - R 10/04/2023, L 01/18) - told recover time after surgery 6 months by different physician. PT-OP-B Current Condition Start: 03/05/24 16:26 Freq: Status: Active Protocol: Document 03/06/24 11:18 LRN (Rec: 03/06/24 12:21 LRN [id number]) Current Condition History of Current Condition Onset Date 10/2023 Current Complaints SI pain, lateral hip and posterior hip/pelvic pain History of Current Condition Pt reportedly has had a sequence of surgeries in [place], starting 8 yrs ago and hasn't been able to get back into condition since. Last 2 surgeries were SI locks/ fusions with pinnings R side Sep 2023, L side 12/2023. Has pain on both sides different than prior to surgery. Expected outcome was relief of pain with transition (most standing up). His complaints now are pain that wakes him up in the morning, lateral hip and lateral/posterior pelvic pain. LBP starts later in the day. Pt moved to [facility] Aug 2023. 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 Prior Treatments and Tests Post surgical rehab in [place] after each SI lock/ fusion surgeries, both inpt and outpt rehab. Treatment Goals Patient/Caregiver Goals Pt goal: - core and gluteal strengthening and balance training. Be able to lift from 30-45 lbs. - Sit for more than 10' due to back (tight hamstrings). - independent in HEP. Current Functional Impairments (Reported) Functional Limitations- ADL's Stationary bike 6x/week - 15'/ day. 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 PT-OP-C Subjective Start: 03/05/24 16:26 Freq: Status: Active Protocol: Document 05/11/24 14:31 LRN (Rec: 05/11/24 15:43 LRN [id number]) OP-PT Subjective Patient Comments Patient Comments States he started doing downward dog and feels it helps to reduce the tingling, but numbness remains the same. States he did a deep massage to his R lower leg and it helped reduce the tingling in the leg. States the spinal stimulator was adjusted but didn't make a difference. Last night had cramp in L lower leg (goes back and forth which leg cramps). In evenings, can bridge now without LBP onset. Now able to bridge with 15# 15 reps. PT-OP-H Neuro Start: 03/05/24 16:26 Freq: Status: Active Protocol: Document 04/14/24 13:47 LRN (Rec: 04/14/24 16:25 LRN [id number]) Sensation Evaluation Location Details Right Lower Leg Light Touch Impaired Comments Summary Comments Decreased sensation of R lower leg from the top of the leg brace distally and from briscoe to brace upright stay. PT-OP-J Posture/Palpation/Skin Start: 03/05/24 16:26 Freq: Status: Active Protocol: Document 03/06/24 11:18 LRN (Rec: 03/06/24 12:21 LRN [id number]) Posture Evaluation Position Standing Head/C-Spine Posture Forward Head T-Spine Posture Increased Kyphosis L-Spine Posture Flattened Shoulder Posture (R) Elevated Comments Posture Comments Head shifted left, R shoulder elevated, protruding R ACJ, very slight anterior pelvic tilt, wide stance. Palpation Assessment Location Low back Palpation Location L paraspinasl ~T6-T12 Palpation Findings Muscle Guarding PT-OP-K Range of Motion Start: 03/05/24 16:26 Freq: Status: Active Protocol: Document 04/24/24 09:50 SP (Rec: 04/24/24 11:50 SP [id number]) Hip Goniometric Range of Motion Hip Right Active Testing Position Supine Straight Leg Raise 75 Comments PSLR Left Active Testing Position Supine Straight Leg Raise 75 Comments PSLR PT-OP-M Strength Start: 03/05/24 16:26 Freq: Status: Active Protocol: Document 03/06/24 11:18 LRN (Rec: 03/06/24 12:21 LRN [id number]) Trunk Strength Trunk Manual Muscle Testing Core Stabilization Mild to moderate loss of core stability as noted with MMT of LE's (primarily with flex and rotation). Hip Strength Hip Manual Muscle Testing Right Abduction 4 Good Adduction 2- Poor- Comments Hip strength is 5/5 except as indicated above. Left Flexion (L2) 4+ Good+ Adduction 2 Poor External Rotation 3 Fair Internal Rotation 3 Fair Comments Hip strength is 5/5 except as indicated above. PT-OP-Q Treatments Start: 03/05/24 16:26 Freq: Status: Active Protocol: Document 05/11/24 14:31 LRN (Rec: 05/11/24 15:43 LRN [id number]) Cardio Equipment Recumbent Bicycle Duration (Minutes) 11 Resistance 5 x 5', 8 x 5' Seat Position 8 Therapeutic Exercises Supine Exercises Hip AB Supine Exercise Name Verified pt doing HEP SLR Supine Exercise Name Verified pt doing HEP hamstring stretch Supine Exercise Name from hooklying with ankle pumps on with knee flexion X 5 Side bilateral Reps/Minutes 60 seconds X 1 LLE, x2 RLE. Comments Extra time taken to determine max mechelle ex positioning hip flexor stretch Supine Exercise Name edge of elevated table Side bilateral Equipment Used *not able do home Reps/Minutes one minute each LE, f/b single leg king glut squeeze (5SH-10 reps) Comments L is tighter than R bridge /c hip abd Supine Exercise Name Bridge w/15# on lower abdomen and then with TB around knees Reps/Minutes 10x 2 each type Standing Exercises King trunk strengthening Standing Exercise Name Standing for King flex, ext, SB w/dk green sport cord (Lev1 ). Side bilateral Reps/Minutes 12' Comments Sport cord around upper chest w/GB below. Manual Therapy Treatment Soft Tissue Mobilization Quads Body Location Franci Quads Mobilization Type Myofascial Release Intensity/Depth Moderate Body Position Supine PT-OP-T Assessment and Plan Start: 03/05/24 16:26 Freq: Status: Active Protocol: Document 05/11/24 14:31 LRN (Rec: 05/11/24 15:43 LRN [id number]) Physical Therapy Assessment Goals Three Impairment Decreased functional strength for performing home activities of lifting. Impairment Pt goal: - core and gluteal strength and balance. Be able to lift from 30 to 45. - Can't sit for more than 10' due to back (tight hamstrings) . - independent in HEP. Short Term Goal (STG) Pt will be educated in proper body mechanics for DLS and Mtz to Safe Movement. 04/02/24: Pt training/ education in body mechanics for ADLs & Proper Posture for Mtz to Safe Movement. STG Duration 4 wks-04/03/24 (04/02/24: MET GOAL) Halfway Goal (LTG) Pt will be able to tolerate lifting 30#-45# with modification of lifting technique for functional activities at home. 03/16/24: incorporated straight back hip hinge in mirror deadlift 20# (2-10# DB). LTG Duration 07/24/24 progressing 03/16/24 Two Impairment Decreased sitting tolerance due to pain Impairment Can't sit for more than 10' due to back. Short Term Goal (STG) Improve LE mobility (tight hamstrings) and if tolerated neural mobility. 03/16/24: added standing bottoms up active HS stretch ( hands on step, knee ext). STG Duration 4 wks-05/29/24 progressing Oil And Gas Drafter Goal (LTG) Pt will be able to improve functional sitting of 30-60' with modification of sitting or performing sitting mobility ex's to decrease pain. 04/09/2024 Patient reports sitting for one hour, but with increased ankle pain post, which decreased by 1/2 post manual therapy and and exercise. 04/27/24: Sitting in morning 10', in evening sit for 1 hr. LTG Duration 07/24/24 progressed in evening sitting time 04/27/24 One Impairment Lacks appropriate self care HEP Impairment Pt goal: - core and gluteal strength and balance. Be able to lift from 30 to 45. - Can't sit for more than 10' due to back (tight hamstrings) . - independent in HEP. Short Term Goal (STG) Will be instructed in HEP for balance and king core strengthening ex's to support therapy services provided in clinic. 03/09/24: CYRIL 50/56, Radha 14/16. 03/16/24: reviewed deadbug, bridge /c hip abd #3 TB, resisted lateral stepping, repeated step up- L>R glut med /pirifor weakness. STG Duration 4 wks-05/29/24 progressing 03/16/24 Halfway Goal (LTG) Pt will be independent with HEP of general LE strengthening and hip ROM ex's with the goal of improving pt 's perception of safety with gait. 03/16/24: progressing:bridge /c hip abd #3 TB, resisted lateral stepping, repeated step up- L>R glut med/pirifor weakness. 04/07/2024 Seated hip abd with band added to HEP 04/09/2024 Added stretching HS /c AP, and AROM knee flexion to HEP 04/16/24: HEP: Hip strengthening: hip AB/AD (sup & sidelie), Clamshell/Reverse clamshell, SLR, Bridge. LTG Duration 12 wks-07/24/24 progressing 04/16/24 Assessment Summary Assessment 73 yo male s/p franci SI fusion/ lock (R-09/2023, L-12/2023), initially with pain in franci hips worse first in AM, franci LBP (sacral level) worse in PM , initial c/o franci ankle pn, foot neuropathy, R drop foot, decr'd hip mobility, weakness of the hips/core. Today he demonstrates ability to perform bridge w/o LBP onset and good tolerance to trunk king strengthening in standing w/sport cord. Physical Therapy Plan Frequency and Duration Frequency of Treatment 2x/Week Duration of treatment (weeks) 12 Plan of Care Start Date 04/28/24 Plan of Care End Date 07/24/24 Next Visit Focus/Plan Next Note Type Treatment Note Next Visit Plan See Precautions. Next: Measure Hamstring mobility. Start Functional strengthening: lifting & semi tandem, functional balance. Progress HEP lumbar king extension in neutral spine positioning in ?sitting, & Add trunk KING Rot-paloff press ( caution for electrodes and SI locks) check if rot AROM present. Add doorway Ilipsoas stretch, improve Hip Ext ROM. Continue Core strengthening ( NO lumbar rot/SB due to surgical hx), balance training , hip strengthening, work posturing position training/ strengthening. Exer: progress LE: L flex/ER/ IR, franci AD strengthening. HEP for balance and king core strengthening ex's. POC: Decrease pain franci LB/ hips & Core/hip stabilization/ strengthening; painfree hip mobility ex's; LB/hip ST;, transfer training (hip hinging ); FOCUS ON: SELF pain mgmt; ADLs; general conditioning ( stationary bike) if tolerated; and improve balance.
--- NOTE | 2024-05-20 14:30 | PT.OTN ---
Current Diagnoses Other chronic pain (05/20/24) Low back pain, unspecified (05/20/24) Neuralgia and neuritis, unspecified (05/20/24) Other specified postprocedural states (05/20/24) Physical Therapy Treatment Note PT-OP-A Visit Information Start: 03/05/24 16:26 Freq: Status: Active Protocol: Document 05/20/24 13:50 SP (Rec: 05/20/24 14:35 SP [id number]) Out-Patient Physical Therapy Visit Information Visit Information Visit Type Treatment Note Visit Note 01/04 post PN Visit Start Time 13:50 Visit Stop Time 14:30 Visit Number 14 Number of COUNTER HELPER Visits 1 Evaluation Information Evaluation Date 03/06/24 Precautions Precautions TAPE ALLERGY. PMH: Anterior L YANELY-07/20, No Bending Lifting Twisting (told after SI lock surgery - R 10/04/2023, L 01/18) - told recover time after surgery 6 months by different physician. PT-OP-B Current Condition Start: 03/05/24 16:26 Freq: Status: Active Protocol: Document 03/06/24 11:18 LRN (Rec: 03/06/24 12:21 LRN [id number]) Current Condition History of Current Condition Onset Date 10/2023 Current Complaints SI pain, lateral hip and posterior hip/pelvic pain History of Current Condition Pt reportedly has had a sequence of surgeries in [place], starting 8 yrs ago and hasn't been able to get back into condition since. Last 2 surgeries were SI locks/ fusions with pinnings R side Sep 2023, L side 12/2023. Has pain on both sides different than prior to surgery. Expected outcome was relief of pain with transition (most standing up). His complaints now are pain that wakes him up in the morning, lateral hip and lateral/posterior pelvic pain. LBP starts later in the day. 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 Treatment Goals Patient/Caregiver Goals Pt goal: - core and gluteal strengthening and balance training. Be able to lift from 30-45 lbs. - Sit for more than 10' due to back (tight hamstrings). - independent in HEP. Current Functional Impairments (Reported) Functional Limitations- ADL's Stationary bike 6x/week - 15'/ day. 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 PT-OP-C Subjective Start: 03/05/24 16:26 Freq: Status: Active Protocol: Document 05/20/24 13:50 SP (Rec: 05/20/24 14:35 SP [id number]) OP-PT Subjective Patient Comments Patient Comments Pt reports having some sciatic pain today 10 at arrival, some days more than others, feel nerve driven ebs and flows. He scheduling an epidural 06/03 and hoping will get some relief. Compliant with HEP and helps with pain reduction makes a huge difference. He is on his feet alot which is good but sitting still worst. PT-OP-H Neuro Start: 03/05/24 16:26 Freq: Status: Active Protocol: Document 04/14/24 13:47 LRN (Rec: 04/14/24 16:25 LRN [id number]) Sensation Evaluation Location Details Right Lower Leg Light Touch Impaired Comments Summary Comments Decreased sensation of R lower leg from the top of the leg brace distally and from briscoe to brace upright stay. PT-OP-J Posture/Palpation/Skin Start: 03/05/24 16:26 Freq: Status: Active Protocol: Document 03/06/24 11:18 LRN (Rec: 03/06/24 12:21 LRN [id number]) Posture Evaluation Position Standing Head/C-Spine Posture Forward Head T-Spine Posture Increased Kyphosis L-Spine Posture Flattened Shoulder Posture (R) Elevated Comments Posture Comments Head shifted left, R shoulder elevated, protruding R ACJ, very slight anterior pelvic tilt, wide stance. Palpation Assessment Location Low back Palpation Location L paraspinasl ~T6-T12 Palpation Findings Muscle Guarding PT-OP-K Range of Motion Start: 03/05/24 16:26 Freq: Status: Active Protocol: Document 05/20/24 13:50 SP (Rec: 05/20/24 15:28 SP [id number]) Hip Goniometric Range of Motion Hip Right Active Testing Position Supine Straight Leg Raise 100 Comments PSLR AROM SLR: 90 deg Left Active Testing Position Supine Straight Leg Raise 92 Comments PSLR AROM SLR: 86 deg PT-OP-M Strength Start: 03/05/24 16:26 Freq: Status: Active Protocol: Document 03/06/24 11:18 LRN (Rec: 03/06/24 12:21 LRN [id number]) Trunk Strength Trunk Manual Muscle Testing Core Stabilization Mild to moderate loss of core stability as noted with MMT of LE's (primarily with flex and rotation). Hip Strength Hip Manual Muscle Testing Right Abduction 4 Good Adduction 2- Poor- Comments Hip strength is 5/5 except as indicated above. Left Flexion (L2) 4+ Good+ Adduction 2 Poor External Rotation 3 Fair Internal Rotation 3 Fair Comments Hip strength is 5/5 except as indicated above. PT-OP-Q Treatments Start: 03/05/24 16:26 Freq: Status: Active Protocol: Document 05/20/24 13:50 SP (Rec: 05/20/24 14:35 SP [id number]) Cardio Equipment Recumbent Bicycle Duration (Minutes) 8 Resistance 6 x5', 8x3' Seat Position 8- 3.3 miles Other good effort challenge but hurting more today Therapeutic Exercises Supine Exercises HS mobility Supine Exercise Name SLR angle- hip flexion Resistance AROM 90 deg R, 86deg L Equipment Used PROM 100 deg R, 92 deg L Hip AB Supine Exercise Name Verified pt doing HEP Resistance franci together Equipment Used on floor home Reps/Minutes x10 Comments is mindful no LB arch with reps hamstring stretch Supine Exercise Name from hooklying with ankle pumps on with knee flexion X 5 Side bilateral Reps/Minutes 60 seconds X 1 LLE, x2 RLE. Comments Extra time taken to determine max mechelle ex positioning bug Supine Exercise Name bug with arms leg, then legs, then arms; folded towel in small of back Side bilateral Reps/Minutes x10 reps Comments good PPT LB toward floor, pnfree bridge /c hip abd Supine Exercise Name Resisted bridges Resistance TB #3 at thighs, 15 # leg wt held in place at upper thighs Reps/Minutes 10x 2 Sitting Exercises seated isometric lumbar extension NS Sitting Exercise Name trialed in PT- core and ES- isometric LS extension added to HEP-declined HO Resistance facing wall, BUE FF 90deg on wall Equipment Used mesh chair tall neutral spine Reps/Minutes 10 x5 reps Comments occasional cue: co contraction reported, impr self NS corrections, pnfree seated trunk rotation isometric Sitting Exercise Name trialed in PT, added to HEP declined HO- printed in computer Side bilateral Resistance cable 1 plate (will bring his bands next tx) Equipment Used mesh chair, arms front ( limited range off midline) Reps/Minutes 10 x5 reps, 2 sets Comments Good postural self correction for core fac, pnfree Standing Exercises deadlift mechanics Standing Exercise Name trialed/reviewed self Resistance 2-15# DB Reps/Minutes 2x10 Comments mini squat held Db at side legs, pnfree Therapeutic Activity Therapeutic Activity Body mechanics training Name Body mechanics training for ADLs & Proper posture for Safe Mvmt. Reps/Minutes 2' prior to standing ther ex Comments Included education straight back, hip hinge then incorporation squat to support ADLs outdoors. PT-OP-T Assessment and Plan Start: 03/05/24 16:26 Freq: Status: Active Protocol: Document 05/20/24 13:50 SP (Rec: 05/20/24 14:35 SP [id number]) Physical Therapy Assessment Goals Three Impairment Decreased functional strength for performing home activities of lifting. Impairment Pt goal: - core and gluteal strength and balance. Be able to lift from 30 to 45. - Can't sit for more than 10' due to back (tight hamstrings) . - independent in HEP. Short Term Goal (STG) Pt will be educated in proper body mechanics for DLS and Mtz to Safe Movement. 04/02/24: Pt training/ education in body mechanics for ADLs & Proper Posture for Mtz to Safe Movement. STG Duration 4 wks-04/03/24 (04/02/24: MET GOAL) Soft Top Installer Goal (LTG) Pt will be able to tolerate lifting 30#-45# with modification of lifting technique for functional activities at home. 03/16/24: incorporated straight back hip hinge in mirror deadlift 20# (2-10# DB). 05/20/24: progressing 30#: 2- 15# DB deadlift good hip hinge straight back painfree. LTG Duration 07/24/24 progressing 05/20/24 Two Impairment Decreased sitting tolerance due to pain Impairment Can't sit for more than 10' due to back. Short Term Goal (STG) Improve LE mobility (tight hamstrings) and if tolerated neural mobility. 03/16/24: added standing bottoms up active HS stretch ( hands on step, knee ext). 05/20/24: progressing increased HS mobility: PROM 100 deg R, 92 deg L, AROM 90 deg R, 86deg L STG Duration 4 wks-05/29/24 progressing Fci Goal (LTG) Pt will be able to improve functional sitting of 30-60' with modification of sitting or performing sitting mobility ex's to decrease pain. 04/09/2024 Patient reports sitting for one hour, but with increased ankle pain post, which decreased by 1/2 post manual therapy and and exercise. 04/27/24: Sitting in morning 10', in evening sit for 1 hr. LTG Duration 07/24/24 progressed in evening sitting time 04/27/24 One Impairment Lacks appropriate self care HEP Impairment Pt goal: - core and gluteal strength and balance. Be able to lift from 30 to 45. - Can't sit for more than 10' due to back (tight hamstrings) . - independent in HEP. Short Term Goal (STG) Will be instructed in HEP for balance and nelda core strengthening ex's to support therapy services provided in clinic. 03/09/24: NAM 50/56, [place] 14/16. 03/16/24: reviewed deadbug, bridge /c hip abd #3 TB, resisted lateral stepping, repeated step up- L>R glut med /pirifor weakness. STG Duration 4 wks-05/29/24 progressing 03/16/24 Soft Top Installer Goal (LTG) Pt will be independent with HEP of general LE strengthening and hip ROM ex's with the goal of improving pt 's perception of safety with gait. 03/16/24: progressing:bridge /c hip abd #3 TB, resisted lateral stepping, repeated step up- L>R glut med/pirifor weakness. 04/07/2024 Seated hip abd with band added to HEP 04/09/2024 Added stretching HS /c AP, and AROM knee flexion to HEP 04/16/24: HEP: Hip strengthening: hip AB/AD (sup & sidelie), Clamshell/Reverse clamshell, SLR, Bridge. 05/20/24: adde oblique isometric paloff press LTG Duration 12 wks-07/24/24 progressing 05/20/24 Assessment Summary Assessment Pt made gains in hamstring mobility by 10-15 degrees ( different therapist measured), suggest PT remeasure. Pt decreased in LBP from 6 to 1/ 10 post ther ex with focus on neutral spinal alignment and isometric oblique co- contraction with paraspinals during LS rotation and mechanics funcitonal squat lifting deadlift, self exercise with good engineering test mechanic demonstrated. Occasional cueing when needed for core and paraspinal. Physical Therapy Plan Frequency and Duration Frequency of Treatment 2x/Week Duration of treatment (weeks) 12 Plan of Care Start Date 04/28/24 Plan of Care End Date 07/24/24 Therapeutic Interventions Therapeutic Interventions Balance Training,Gait Training ,Home Exercise Program,Manual Therapy,Self-Care/Home Management,Soft Tissue Mobilization,Therapeutic Activities,Therapeutic Exercises Modalities Cold Pack/Ice Massage,Hot Packs Next Visit Focus/Plan Next Note Type Treatment Note Next Visit Plan See Precautions. Next: PT remeasure Hamstring mobility for validity compare to COUNTER HELPER measurement. REcheck trunk NELDA Rot-paloff press ( caution for electrodes and SI locks) Start Functional strengthening: lifting & semi tandem, functional balance. Progress HEP lumbar nelda extension in neutral spine positioning in ?sitting, check if rot AROM present. Add doorway Ilipsoas stretch, improve Hip Ext ROM. Continue Core strengthening ( NO lumbar rot/SB due to surgical hx), balance training , hip strengthening, work posturing position training/ strengthening. Exer: progress LE: L flex/ER/ IR, franci AD strengthening. HEP for balance and nelda core strengthening ex's. POC: Decrease pain franci LB/ hips & Core/hip stabilization/ strengthening; painfree hip mobility ex's; LB/hip ST;, transfer training (hip hinging ); FOCUS ON: SELF pain mgmt; ADLs; general conditioning ( stationary bike) if tolerated; and improve balance.
--- NOTE | 2024-05-26 13:45 | PT.OTN ---
Current Diagnoses Other chronic pain (05/26/24) Low back pain, unspecified (05/26/24) Neuralgia and neuritis, unspecified (05/26/24) Other specified postprocedural states (05/26/24) Physical Therapy Treatment Note PT-OP-A Visit Information Start: 03/05/24 16:26 Freq: Status: Active Protocol: Document 05/26/24 13:05 SP (Rec: 05/26/24 13:50 SP [id number]) Out-Patient Physical Therapy Visit Information Visit Information Visit Type Treatment Note Visit Note 02/04 post PN Visit Start Time 13:05 Visit Stop Time 13:45 Visit Number 15 Number of SHOPPER Visits 2 Evaluation Information Evaluation Date 03/06/24 Precautions Precautions TAPE ALLERGY. PMH: Anterior L YANELY-07/20, No Bending Lifting Twisting (told after SI lock surgery - R 10/04/2023, L 01/18) - told recover time after surgery 6 months by different physician. PT-OP-B Current Condition Start: 03/05/24 16:26 Freq: Status: Active Protocol: Document 03/06/24 11:18 LRN (Rec: 03/06/24 12:21 LRN [id number]) Current Condition History of Current Condition Onset Date 10/2023 Current Complaints SI pain, lateral hip and posterior hip/pelvic pain History of Current Condition Pt reportedly has had a sequence of surgeries in [place], starting 8 yrs ago and hasn't been able to get back into condition since. Last 2 surgeries were SI locks/ fusions with pinnings R side Sep 2023, L side 12/2023. Has pain on both sides different than prior to surgery. Expected outcome was relief of pain with transition (most standing up). His complaints now are pain that wakes him up in the morning, lateral hip and lateral/posterior pelvic pain. LBP starts later in the day. Pt moved to [facility] Aug 2023. 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 Prior Treatments and Tests Post surgical rehab in [place] after each SI lock/ fusion surgeries, both inpt and outpt rehab. Treatment Goals Patient/Caregiver Goals Pt goal: - core and gluteal strengthening and balance training. Be able to lift from 30-45 lbs. - Sit for more than 10' due to back (tight hamstrings). - independent in HEP. Current Functional Impairments (Reported) Functional Limitations- ADL's Stationary bike 6x/week - 15'/ day. 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 PT-OP-C Subjective Start: 03/05/24 16:26 Freq: Status: Active Protocol: Document 05/26/24 13:05 SP (Rec: 05/26/24 13:50 SP [id number]) OP-PT Subjective Patient Comments Patient Comments Pt reports still has pain but is nerve pain of which PT can' t change. 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 Having a broad spectrum epidural next week in back and intested in seeing how will help nerve pain into LEs and mobility. Reports lateral R leg numbness arrival, states ususally lessens with bike. USE SPC and R LE externa. AFO PT-OP-H Neuro Start: 03/05/24 16:26 Freq: Status: Active Protocol: Document 04/14/24 13:47 LRN (Rec: 04/14/24 16:25 LRN [id number]) Sensation Evaluation Location Details Right Lower Leg Light Touch Impaired Comments Summary Comments Decreased sensation of R lower leg from the top of the leg brace distally and from briscoe to brace upright stay. PT-OP-J Posture/Palpation/Skin Start: 03/05/24 16:26 Freq: Status: Active Protocol: Document 03/06/24 11:18 LRN (Rec: 03/06/24 12:21 LRN [id number]) Posture Evaluation Position Standing Head/C-Spine Posture Forward Head T-Spine Posture Increased Kyphosis L-Spine Posture Flattened Shoulder Posture (R) Elevated Comments Posture Comments Head shifted left, R shoulder elevated, protruding R ACJ, very slight anterior pelvic tilt, wide stance. Palpation Assessment Location Low back Palpation Location L paraspinasl ~T6-T12 Palpation Findings Muscle Guarding PT-OP-K Range of Motion Start: 03/05/24 16:26 Freq: Status: Active Protocol: Document 05/20/24 13:50 SP (Rec: 05/20/24 15:28 SP [id number]) Hip Goniometric Range of Motion Hip Right Active Testing Position Supine Straight Leg Raise 100 Comments PSLR AROM SLR: 90 deg Left Active Testing Position Supine Straight Leg Raise 92 Comments PSLR AROM SLR: 86 deg PT-OP-M Strength Start: 03/05/24 16:26 Freq: Status: Active Protocol: Document 03/06/24 11:18 LRN (Rec: 03/06/24 12:21 LRN [id number]) Trunk Strength Trunk Manual Muscle Testing Core Stabilization Mild to moderate loss of core stability as noted with MMT of LE's (primarily with flex and rotation). Hip Strength Hip Manual Muscle Testing Right Abduction 4 Good Adduction 2- Poor- Comments Hip strength is 5/5 except as indicated above. Left Flexion (L2) 4+ Good+ Adduction 2 Poor External Rotation 3 Fair Internal Rotation 3 Fair Comments Hip strength is 5/5 except as indicated above. PT-OP-Q Treatments Start: 03/05/24 16:26 Freq: Status: Active Protocol: Document 05/26/24 13:05 SP (Rec: 05/26/24 13:50 SP [id number]) Cardio Equipment Recumbent Bicycle Duration (Minutes) 9 Resistance 5 Seat Position 8- 3.4 miles Other good effort challenge but hurting more today Therapeutic Exercises Sitting Exercises seated resisted paloff press isometric Sitting Exercise Name trialed in PT Side bilateral Resistance purple band (#6 latex free) Reps/Minutes 10 SH x10 each side (1 set) Comments occ cues for posture away back seat, neutral spine seated isometric lumbar extension NS Sitting Exercise Name trialed in PT- core and ES- isometric LS extension added to HEP-declined HO Resistance facing wall, BUE FF 90deg on wall Equipment Used mesh chair tall neutral spine Reps/Minutes 10 x5 reps Comments occasional cue: co contraction reported, impr self NS corrections, pnfree seated trunk rotation isometric Sitting Exercise Name isometric paloff press Side bilateral Resistance purple band Equipment Used mesh chair, arms front ( limited range off midline) Reps/Minutes 10 x5 reps, 2 sets Comments Good postural self correction for core fac, pnfree Standing Exercises resisted shld ext Standing Exercise Name trialed in PT-semitandem- added to HEP-declined HO Side bilateral Resistance Tb #6 purple Reps/Minutes 2x15 reps each Comments good posture, soft knee, core fac- slight sway challenge deadlift mechanics Standing Exercise Name reviewed HEP Resistance a Reps/Minutes 2x10 Comments mini squat held Db at side legs, pnfree bottoms up Standing Exercise Name HS stretch- added to HEP pre lift activities Resistance BUE on seat Equipment Used mesh chair (18 height) Reps/Minutes 20 SH x4 Comments good back straight hip hinge, knee ext for HS stretch- good feedback stre. PT-OP-T Assessment and Plan Start: 03/05/24 16:26 Freq: Status: Active Protocol: Document 05/26/24 13:05 SP (Rec: 05/26/24 13:50 SP [id number]) Physical Therapy Assessment Goals Three Impairment Decreased functional strength for performing home activities of lifting. Impairment Pt goal: - core and gluteal strength and balance. Be able to lift from 30 to 45. - Can't sit for more than 10' due to back (tight hamstrings) . - independent in HEP. Short Term Goal (STG) Pt will be educated in proper body mechanics for DLS and Mtz to Safe Movement. 04/02/24: Pt training/ education in body mechanics for ADLs & Proper Posture for Mtz to Safe Movement. STG Duration 4 wks-04/03/24 (04/02/24: MET GOAL) Time Study Statistician Goal (LTG) Pt will be able to tolerate lifting 30#-45# with modification of lifting technique for functional activities at home. 03/16/24: incorporated straight back hip hinge in mirror deadlift 20# (2-10# DB). 05/20/24: progressing 30#: 2- 15# DB deadlift good hip hinge straight back painfree. LTG Duration 07/24/24 progressing 05/20/24 Two Impairment Decreased sitting tolerance due to pain Impairment Can't sit for more than 10' due to back. Short Term Goal (STG) Improve LE mobility (tight hamstrings) and if tolerated neural mobility. 03/16/24: added standing bottoms up active HS stretch ( hands on step, knee ext). 05/20/24: progressing increased HS mobility: PROM 100 deg R, 92 deg L, AROM 90 deg R, 86deg L STG Duration 4 wks-05/29/24 progressing Fpc Goal (LTG) Pt will be able to improve functional sitting of 30-60' with modification of sitting or performing sitting mobility ex's to decrease pain. 04/09/2024 Patient reports sitting for one hour, but with increased ankle pain post, which decreased by 1/2 post manual therapy and and exercise. 04/27/24: Sitting in morning 10', in evening sit for 1 hr. LTG Duration 07/24/24 progressed in evening sitting time 04/27/24 One Impairment Lacks appropriate self care HEP Impairment Pt goal: - core and gluteal strength and balance. Be able to lift from 30 to 45. - Can't sit for more than 10' due to back (tight hamstrings) . - independent in HEP. Short Term Goal (STG) Will be instructed in HEP for balance and nelda core strengthening ex's to support therapy services provided in clinic. 03/09/24: CYRIL 50/56, Radha 14/16. 03/16/24: reviewed deadbug, bridge /c hip abd #3 TB, resisted lateral stepping, repeated step up- L>R glut med /pirifor weakness. STG Duration 4 wks-05/29/24 progressing 03/16/24 Fpc Goal (LTG) Pt will be independent with HEP of general LE strengthening and hip ROM ex's with the goal of improving pt 's perception of safety with gait. 03/16/24: progressing:bridge /c hip abd #3 TB, resisted lateral stepping, repeated step up- L>R glut med/pirifor weakness. 04/07/2024 Seated hip abd with band added to HEP 04/09/2024 Added stretching HS /c AP, and AROM knee flexion to HEP 04/16/24: HEP: Hip strengthening: hip AB/AD (sup & sidelie), Clamshell/Reverse clamshell, SLR, Bridge. 05/20/24: adde oblique isometric paloff press LTG Duration 12 wks-07/24/24 progressing 05/20/24 Assessment Summary Assessment Pt good tolerance to core strengthening during tx today. cues for sitting away back chair for co-contraction abd and back for strenghtening. Good feedback reduction tenion in HS with review bottoms up and deadlift proper body mechanics and safety of neutral spine. Pt reports always feels better after tx with strenghening activities in corporates at home. GOod safe challenge trial semitandem today with core TB ex, no LOB and will add to HEP , declined HO. Physical Therapy Plan Frequency and Duration Frequency of Treatment 2x/Week Duration of treatment (weeks) 12 Plan of Care Start Date 04/28/24 Plan of Care End Date 07/24/24 Therapeutic Interventions Therapeutic Interventions Balance Training,Gait Training ,Home Exercise Program,Manual Therapy,Self-Care/Home Management,Soft Tissue Mobilization,Therapeutic Activities,Therapeutic Exercises Modalities Cold Pack/Ice Massage,Hot Packs Next Visit Focus/Plan Next Note Type Treatment Note Next Visit Plan See Precautions. Next: PT remeasure Hamstring mobility for validity compare to SHOPPER measurement. REcheck trunk NELDA Rot-paloff press ( caution for electrodes and SI locks) Start Functional strengthening: lifting & semi tandem, functional balance. Progress HEP lumbar enlda extension in neutral spine positioning in ?sitting, check if rot AROM present. Add doorway Ilipsoas stretch, improve Hip Ext ROM. Continue Core strengthening ( NO lumbar rot/SB due to surgical hx), balance training , hip strengthening, work posturing position training/ strengthening. Exer: progress LE: L flex/ER/ IR, franci AD strengthening. HEP for balance and nelda core strengthening ex's. Trial lunges near rail for progression strength and bal. POC: Decrease pain franci LB/ hips & Core/hip stabilization/ strengthening; painfree hip mobility ex's; LB/hip ST;, transfer training (hip hinging ); FOCUS ON: SELF pain mgmt; ADLs; general conditioning ( stationary bike) if tolerated; and improve balance.
--- NOTE | 2024-06-01 15:13 | PT.OTN ---
Current Diagnoses Other chronic pain (06/01/24) Low back pain, unspecified (06/01/24) Neuralgia and neuritis, unspecified (06/01/24) Other specified postprocedural states (06/01/24) Physical Therapy Treatment Note PT-OP-A Visit Information Start: 03/05/24 16:26 Freq: Status: Active Protocol: Document 06/01/24 14:36 SP (Rec: 06/01/24 15:55 SP [id number]) Out-Patient Physical Therapy Visit Information Visit Information Visit Type Treatment Note Visit Note 02/04 post PN Visit Start Time 14:33 Visit Stop Time 15:13 Visit Number 16 Number of YARDAGE ESTIMATOR Visits 3 Evaluation Information Evaluation Date 03/06/24 Precautions Precautions TAPE ALLERGY. PMH: Anterior L YANELY-07/20, No Bending Lifting Twisting (told after SI lock surgery - R 10/04/2023, L 01/18) - told recover time after surgery 6 months by different physician. PT-OP-B Current Condition Start: 03/05/24 16:26 Freq: Status: Active Protocol: Document 03/06/24 11:18 LRN (Rec: 03/06/24 12:21 LRN [id number]) Current Condition History of Current Condition Onset Date 10/2023 Current Complaints SI pain, lateral hip and posterior hip/pelvic pain History of Current Condition Pt reportedly has had a sequence of surgeries in [place], starting 8 yrs ago and hasn't been able to get back into condition since. Last 2 surgeries were SI locks/ fusions with pinnings R side Sep 2023, L side 12/2023. Has pain on both sides different than prior to surgery. Expected outcome was relief of pain with transition (most standing up). His complaints now are pain that wakes him up in the morning, lateral hip and lateral/posterior pelvic pain. LBP starts later in the day. Pt moved to [facility] Aug 2023. 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 Treatment Goals Patient/Caregiver Goals Pt goal: - core and gluteal strengthening and balance training. Be able to lift from 30-45 lbs. - Sit for more than 10' due to back (tight hamstrings). - independent in HEP. Current Functional Impairments (Reported) Functional Limitations- ADL's Stationary bike 6x/week - 15'/ day. 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 PT-OP-C Subjective Start: 03/05/24 16:26 Freq: Status: Active Protocol: Document 06/01/24 14:36 SP (Rec: 06/01/24 15:55 SP [id number]) OP-PT Subjective Patient Comments Patient Comments Pt has an injection this Wed to see if can decrease his nerve pain into RLE. 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. PT-OP-H Neuro Start: 03/05/24 16:26 Freq: Status: Active Protocol: Document 04/14/24 13:47 LRN (Rec: 04/14/24 16:25 LRN [id number]) Sensation Evaluation Location Details Right Lower Leg Light Touch Impaired Comments Summary Comments Decreased sensation of R lower leg from the top of the leg brace distally and from briscoe to brace upright stay. PT-OP-J Posture/Palpation/Skin Start: 03/05/24 16:26 Freq: Status: Active Protocol: Document 03/06/24 11:18 LRN (Rec: 03/06/24 12:21 LRN [id number]) Posture Evaluation Position Standing Head/C-Spine Posture Forward Head T-Spine Posture Increased Kyphosis L-Spine Posture Flattened Shoulder Posture (R) Elevated Comments Posture Comments Head shifted left, R shoulder elevated, protruding R ACJ, very slight anterior pelvic tilt, wide stance. Palpation Assessment Location Low back Palpation Location L paraspinasl ~T6-T12 Palpation Findings Muscle Guarding PT-OP-K Range of Motion Start: 03/05/24 16:26 Freq: Status: Active Protocol: Document 05/20/24 13:50 SP (Rec: 05/20/24 15:28 SP [id number]) Hip Goniometric Range of Motion Hip Right Active Testing Position Supine Straight Leg Raise 100 Comments PSLR AROM SLR: 90 deg Left Active Testing Position Supine Straight Leg Raise 92 Comments PSLR AROM SLR: 86 deg PT-OP-M Strength Start: 03/05/24 16:26 Freq: Status: Active Protocol: Document 03/06/24 11:18 LRN (Rec: 03/06/24 12:21 LRN [id number]) Trunk Strength Trunk Manual Muscle Testing Core Stabilization Mild to moderate loss of core stability as noted with MMT of LE's (primarily with flex and rotation). Hip Strength Hip Manual Muscle Testing Right Abduction 4 Good Adduction 2- Poor- Comments Hip strength is 5/5 except as indicated above. Left Flexion (L2) 4+ Good+ Adduction 2 Poor External Rotation 3 Fair Internal Rotation 3 Fair Comments Hip strength is 5/5 except as indicated above. PT-OP-Q Treatments Start: 03/05/24 16:26 Freq: Status: Active Protocol: Document 06/01/24 14:36 SP (Rec: 06/01/24 15:55 SP [id number]) Cardio Equipment Recumbent Bicycle Duration (Minutes) 12 Resistance 7 Seat Position 8 Other good effort, helps a nerve glide response Therapeutic Exercises Prone Exercises downward dog Prone Exercise Name review self HEP Reps/Minutes 20 SH x1 Comments pre prone on elbows LE ext Prone Exercise Name trialed Side bilateral Reps/Minutes 2x5 Comments cued TKE can, pelvis on floor- good effort pnfree PRERNA Prone Exercise Name self HEP reviewed Reps/Minutes 30 sec Comments demos tall on elbows to elongate spine pnfree range Sitting Exercises sit>stand>OH press Sitting Exercise Name sit to stand into Over head press Side bilateral Resistance 10# DB each UE Reps/Minutes x5 reps Comments cued TA, glut drive coming to standing, good form hip hinge- tiring effort seated resisted paloff press isometric Sitting Exercise Name added to HEP-declined HO Side bilateral Resistance purple band (#6 latex free) Equipment Used 75cm tball Reps/Minutes x5 reps press outx, 10 SH x10 each side (1 set) Comments occ cues for posture away back seat, neutral spine Standing Exercises deadlift mechanics Standing Exercise Name reviewed HEP Resistance 2- 20# DB (increased 5# today 8/5) Reps/Minutes 2x10 Comments mini squat held Db at front legs, pnfree bottoms up Standing Exercise Name HS stretch- reviewed HEP pre lift activities Resistance BUE on seat Equipment Used mesh chair (18 height) Reps/Minutes 20 SH x4 Comments good back straight hip hinge, knee ext for HS stretch- good feedback stre. Other Exercises cat camel Other Exercise Name standing: UE on TM rail cat<> LS elongate/modified ext Side bilateral Reps/Minutes x5 each Comments f/b LS allowable, pnfree child's pose Other Exercise Name self HEP review Equipment Used yoga mat Reps/Minutes between 2-3rd set prone LE ext Comments good back stretch PT-OP-T Assessment and Plan Start: 03/05/24 16:26 Freq: Status: Active Protocol: Document 06/01/24 14:36 SP (Rec: 06/01/24 15:55 SP [id number]) Physical Therapy Assessment Goals Three Impairment Decreased functional strength for performing home activities of lifting. Impairment Pt goal: - core and gluteal strength and balance. Be able to lift from 30 to 45. - Can't sit for more than 10' due to back (tight hamstrings) . - independent in HEP. Short Term Goal (STG) Pt will be educated in proper body mechanics for DLS and Mtz to Safe Movement. 04/02/24: Pt training/ education in body mechanics for ADLs & Proper Posture for Mtz to Safe Movement. STG Duration 4 wks-04/03/24 (04/02/24: MET GOAL) Alf Goal (LTG) Pt will be able to tolerate lifting 30#-45# with modification of lifting technique for functional activities at home. 03/16/24: incorporated straight back hip hinge in mirror deadlift 20# (2-10# DB). 05/20/24: progressing 30#: 2- 15# DB deadlift good hip hinge straight back painfree. LTG Duration 07/24/24 progressing 05/20/24 Two Impairment Decreased sitting tolerance due to pain Impairment Can't sit for more than 10' due to back. Short Term Goal (STG) Improve LE mobility (tight hamstrings) and if tolerated neural mobility. 03/16/24: added standing bottoms up active HS stretch ( hands on step, knee ext). 05/20/24: progressing increased HS mobility: PROM 100 deg R, 92 deg L, AROM 90 deg R, 86deg L STG Duration 4 wks-05/29/24 progressing Alf Goal (LTG) Pt will be able to improve functional sitting of 30-60' with modification of sitting or performing sitting mobility ex's to decrease pain. 04/09/2024 Patient reports sitting for one hour, but with increased ankle pain post, which decreased by 1/2 post manual therapy and and exercise. 04/27/24: Sitting in morning 10', in evening sit for 1 hr. 06/01/24: sitting early am sitting after wake up awaiting coffee 10 min before need stand, later am and later peak of day 4-430 takes Tylenol and Oxy to give relief. LTG Duration 07/24/24 progressed in evening sitting time 06/01/24 One Impairment Lacks appropriate self care HEP Impairment Pt goal: - core and gluteal strength and balance. Be able to lift from 30 to 45. - Can't sit for more than 10' due to back (tight hamstrings) . - independent in HEP. Short Term Goal (STG) Will be instructed in HEP for balance and nelda core strengthening ex's to support therapy services provided in clinic. 03/09/24: NAM 50/56, Radha 14/16. 03/16/24: reviewed deadbug, bridge /c hip abd #3 TB, resisted lateral stepping, repeated step up- L>R glut med /pirifor weakness. 06/01/24: HEP stationary bike, stretching: down dog, bridge, lifts 30# more stretching , child's pose, HS stretch supine, squat<> stand into over head lift 10# DB tiring no added pain 5 reps. lift increased 20# each UE. STG Duration 4 wks-05/29/24 progressing 06/01/24 Alf Goal (LTG) Pt will be independent with HEP of general LE strengthening and hip ROM ex's with the goal of improving pt 's perception of safety with gait. 03/16/24: progressing:bridge /c hip abd #3 TB, resisted lateral stepping, repeated step up- L>R glut med/pirifor weakness. 04/07/2024 Seated hip abd with band added to HEP 04/09/2024 Added stretching HS /c AP, and AROM knee flexion to HEP 04/16/24: HEP: Hip strengthening: hip AB/AD (sup & sidelie), Clamshell/Reverse clamshell, SLR, Bridge. 05/20/24: adde oblique isometric paloff press 06/01/24: initiated prone LE ext , reviewed doorway hip flexor stretch. LTG Duration 12 wks-07/24/24 progressing 06/01/24 Assessment Summary Assessment Pt reports nerve pain low back into R leg unchanged but bike /downward dog/bottoms up nerve glides help reduce tension back and posterior leg muscles with activity today. Will have nerve injection Wed. Good response to trial prone LE ext today, cues for TA and TKE /c stretching between sets. TOlerated increase weight deadlift, reports active stretch felt. Physical Therapy Plan Frequency and Duration Frequency of Treatment 2x/Week Duration of treatment (weeks) 12 Plan of Care Start Date 04/28/24 Plan of Care End Date 07/24/24 Therapeutic Interventions Therapeutic Interventions Balance Training,Gait Training ,Home Exercise Program,Manual Therapy,Self-Care/Home Management,Soft Tissue Mobilization,Therapeutic Activities,Therapeutic Exercises Modalities Cold Pack/Ice Massage,Hot Packs Next Visit Focus/Plan Next Note Type Treatment Note Next Visit Plan See Precautions. 5th Visit with PT 2 visits. Next: PT remeasure Hamstring mobility for validity compare to YARDAGE ESTIMATOR measurement. REcheck semi tandem UE ext, hip flexor stretch, prone LE ext added last tx. Add Trial lunges near rail for progression strength and bal, functional balance. Continue Core strengthening ( NO lumbar rot/SB due to surgical hx), balance training , hip strengthening, work posturing position training/ strengthening. Exer: progress LE: L flex/ER/ IR, franci AD strengthening. HEP for balance and nelda core strengthening ex's. POC: Decrease pain franci LB/ hips & Core/hip stabilization/ strengthening; painfree hip mobility ex's; LB/hip ST;, transfer training (hip hinging ); FOCUS ON: SELF pain mgmt; ADLs; general conditioning ( stationary bike) if tolerated; and improve balance.
--- NOTE | 2024-06-18 15:18 | PT.OTN ---
Current Diagnoses Other chronic pain (06/18/24) Low back pain, unspecified (06/18/24) Neuralgia and neuritis, unspecified (06/18/24) Other specified postprocedural states (06/18/24) Physical Therapy Treatment Note PT-OP-A Visit Information Start: 03/05/24 16:26 Freq: Status: Active Protocol: Document 06/18/24 14:33 SP (Rec: 06/18/24 15:53 SP [id number]) Out-Patient Physical Therapy Visit Information Visit Information Visit Type Treatment Note Visit Note 03/06 post PN Visit Start Time 14:33 Visit Stop Time 15:18 Visit Number 17 Number of PAVER LAYER Visits 4 Evaluation Information Evaluation Date 03/06/24 Precautions Precautions TAPE ALLERGY. PMH: Anterior L YANELY-07/20, No Bending Lifting Twisting (told after SI lock surgery - R 10/04/2023, L 01/18) - told recover time after surgery 6 months by different physician. PT-OP-B Current Condition Start: 03/05/24 16:26 Freq: Status: Active Protocol: Document 03/06/24 11:18 LRN (Rec: 03/06/24 12:21 LRN [id number]) Current Condition History of Current Condition Onset Date 10/2023 Current Complaints SI pain, lateral hip and posterior hip/pelvic pain History of Current Condition Pt reportedly has had a sequence of surgeries in [place], starting 8 yrs ago and hasn't been able to get back into condition since. Last 2 surgeries were SI locks/ fusions with pinnings R side Sep 2023, L side 12/2023. Has pain on both sides different than prior to surgery. Expected outcome was relief of pain with transition (most standing up). His complaints now are pain that wakes him up in the morning, lateral hip and lateral/posterior pelvic pain. LBP starts later in the day. Pt moved to [facility] Aug 2023. 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 Prior Treatments and Tests Post surgical rehab in [place] after each SI lock/ fusion surgeries, both inpt and outpt rehab. Treatment Goals Patient/Caregiver Goals Pt goal: - core and gluteal strengthening and balance training. Be able to lift from 30-45 lbs. - Sit for more than 10' due to back (tight hamstrings). - independent in HEP. Current Functional Impairments (Reported) Functional Limitations- ADL's Stationary bike 6x/week - 15'/ day. 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 PT-OP-C Subjective Start: 03/05/24 16:26 Freq: Status: Active Protocol: Document 06/18/24 14:33 SP (Rec: 06/18/24 15:53 SP [id number]) OP-PT Subjective Patient Comments Patient Comments Pt reports got an injection 2 weeks ago (after last tx) and better 1st week then back to normal pain this week. Sees Dr Cathy Emmanuel 06/23 to find out next plan. Getting calf cramps in R leg if sleep on L side last couple months. He takes 2 Tylenol and banana with medication to help cramp reduction and goes away. Stated has been busy at work since last tx so hasn't done most of HEP only able to incorporate bike and floor exercises since last seen 06/01. Noted much better core automatic engagement able to move a 50 lb bag corn feed recently so PT is making a difference. Pt asked to hold off on deadlift today, activity tiring today. PT-OP-H Neuro Start: 03/05/24 16:26 Freq: Status: Active Protocol: Document 04/14/24 13:47 LRN (Rec: 04/14/24 16:25 LRN [id number]) Sensation Evaluation Location Details Right Lower Leg Light Touch Impaired Comments Summary Comments Decreased sensation of R lower leg from the top of the leg brace distally and from briscoe to brace upright stay. PT-OP-J Posture/Palpation/Skin Start: 03/05/24 16:26 Freq: Status: Active Protocol: Document 03/06/24 11:18 LRN (Rec: 03/06/24 12:21 LRN [id number]) Posture Evaluation Position Standing Head/C-Spine Posture Forward Head T-Spine Posture Increased Kyphosis L-Spine Posture Flattened Shoulder Posture (R) Elevated Comments Posture Comments Head shifted left, R shoulder elevated, protruding R ACJ, very slight anterior pelvic tilt, wide stance. Palpation Assessment Location Low back Palpation Location L paraspinasl ~T6-T12 Palpation Findings Muscle Guarding PT-OP-K Range of Motion Start: 03/05/24 16:26 Freq: Status: Active Protocol: Document 05/20/24 13:50 SP (Rec: 05/20/24 15:28 SP [id number]) Hip Goniometric Range of Motion Hip Right Active Testing Position Supine Straight Leg Raise 100 Comments PSLR AROM SLR: 90 deg Left Active Testing Position Supine Straight Leg Raise 92 Comments PSLR AROM SLR: 86 deg PT-OP-M Strength Start: 03/05/24 16:26 Freq: Status: Active Protocol: Document 03/06/24 11:18 LRN (Rec: 03/06/24 12:21 LRN [id number]) Trunk Strength Trunk Manual Muscle Testing Core Stabilization Mild to moderate loss of core stability as noted with MMT of LE's (primarily with flex and rotation). Hip Strength Hip Manual Muscle Testing Right Abduction 4 Good Adduction 2- Poor- Comments Hip strength is 5/5 except as indicated above. Left Flexion (L2) 4+ Good+ Adduction 2 Poor External Rotation 3 Fair Internal Rotation 3 Fair Comments Hip strength is 5/5 except as indicated above. PT-OP-Q Treatments Start: 03/05/24 16:26 Freq: Status: Active Protocol: Document 06/18/24 14:33 SP (Rec: 06/18/24 15:53 SP [id number]) Cardio Equipment Recumbent Bicycle Duration (Minutes) 10 Resistance 7 Seat Position 8 Other good effort, helps a nerve glide response Gym Equipment Shuttle Recovery unilateral squat Details per pt request LE strength, little nerve feeling on R, wants effort for stre Resistance 37# B 1 navy Reps/Time 5 reps each side x3 sets, cued hip abd fac lat midline toward PAVER LAYER hand Therapeutic Exercises Sitting Exercises sit>stand>OH press Sitting Exercise Name sit to stand into Over head press Side bilateral Resistance 5# DB each UE (10# to much after last tx) Equipment Used mesh chair Reps/Minutes 10 x2 Comments impro TA, glut drive coming to standing, good form hip hinge - tiring effort seated resisted paloff press isometric Sitting Exercise Name HEP- (past declined HO) Side bilateral Resistance [place] green, purple band (#6 latex free) Equipment Used 65cm green tball on mat Reps/Minutes 10 press [place] green, 10 SH x5 reps purple Comments occ cues for posture away back seat, neutral spine Standing Exercises resisted shld ext Standing Exercise Name semitandem ( 2 ft apart)- pulldown HEP (declined HO past ) Side bilateral Resistance Tb #6 purple Equipment Used standing on yoga mat Reps/Minutes 2x15 reps each foot position Comments good posture, soft knee, core fac- slight sway challenge Gait Training Gait Activity dynamic gait Description head turns, back stepping Device Used carrying SPC not needed Level of Assistance SBA Distance/Duration 50 ft 2 laps fwd HTs, 20 ft x2 laps back stepping Treatment Focus midline stability, controlled stepping Comments pt improved with cues for scap engagement and TA as needed, only 1 vier off to L during Head turn L. Good midline stab back stepping fair stride but not full feet pass each other . Neuro Re-Education Treatment Balance Activities Uneven surface Details future for community safety PT-OP-T Assessment and Plan Start: 03/05/24 16:26 Freq: Status: Active Protocol: Document 06/18/24 14:33 SP (Rec: 06/18/24 15:53 SP [id number]) Physical Therapy Assessment Goals Three Impairment Decreased functional strength for performing home activities of lifting. Impairment Pt goal: - core and gluteal strength and balance. Be able to lift from 30 to 45. - Can't sit for more than 10' due to back (tight hamstrings) . - independent in HEP. Short Term Goal (STG) Pt will be educated in proper body mechanics for DLS and Mtz to Safe Movement. 04/02/24: Pt training/ education in body mechanics for ADLs & Proper Posture for Mtz to Safe Movement. STG Duration 4 wks-04/03/24 (04/02/24: MET GOAL) Nursing Home Goal (LTG) Pt will be able to tolerate lifting 30#-45# with modification of lifting technique for functional activities at home. 03/16/24: incorporated straight back hip hinge in mirror deadlift 20# (2-10# DB). 05/20/24: progressing 30#: 2- 15# DB deadlift good hip hinge straight back painfree. : 10#DB BUE deadlift no pain good mechanics. LTG Duration 07/24/24 progressiing 06/01/24 Two Impairment Decreased sitting tolerance due to pain Impairment Can't sit for more than 10' due to back. Short Term Goal (STG) Improve LE mobility (tight hamstrings) and if tolerated neural mobility. 03/16/24: added standing bottoms up active HS stretch ( hands on step, knee ext). 05/20/24: progressing increased HS mobility: PROM 100 deg R, 92 deg L, AROM 90 deg R, 86deg L STG Duration 4 wks-05/29/24 progressing Nursing Home Goal (LTG) Pt will be able to improve functional sitting of 30-60' with modification of sitting or performing sitting mobility ex's to decrease pain. 04/09/2024 Patient reports sitting for one hour, but with increased ankle pain post, which decreased by 1/2 post manual therapy and and exercise. 04/27/24: Sitting in morning 10', in evening sit for 1 hr. 06/01/24: sitting early am sitting after wake up awaiting coffee 10 min before need stand, later am and later peak of day 4-430 takes Tylenol and Oxy to give relief. 06/18/24: slow progress: can sit approx 10 min drinking coffee have to stand up. LTG Duration 07/24/24 slow progression One Impairment Lacks appropriate self care HEP Impairment Pt goal: - core and gluteal strength and balance. Be able to lift from 30 to 45. - Can't sit for more than 10' due to back (tight hamstrings) . - independent in HEP. Short Term Goal (STG) Will be instructed in HEP for balance and nelda core strengthening ex's to support therapy services provided in clinic. 03/09/24: NAM 50/56, TInetti 14/16. 03/16/24: reviewed deadbug, bridge /c hip abd #3 TB, resisted lateral stepping, repeated step up- L>R glut med /pirifor weakness. 06/01/24: HEP stationary bike, stretching: down dog, bridge, lifts 30# more stretching , child's pose, HS stretch supine, squat<> stand into over head lift 10# DB tiring no added pain 5 reps. lift increased 20# each UE. 06/18/24: NBOS stride stance uneven surface standing pull downs, sit>stand into over head press 5# DB BUE. STG Duration 4 wks-05/29/24 progressing 06/18/24 Strike Operations Officer Goal (LTG) Pt will be independent with HEP of general LE strengthening and hip ROM ex's with the goal of improving pt 's perception of safety with gait. 03/16/24: progressing:bridge /c hip abd #3 TB, resisted lateral stepping, repeated step up- L>R glut med/pirifor weakness. 04/07/2024 Seated hip abd with band added to HEP 04/09/2024 Added stretching HS /c AP, and AROM knee flexion to HEP 04/16/24: HEP: Hip strengthening: hip AB/AD (sup & sidelie), Clamshell/Reverse clamshell, SLR, Bridge. 05/20/24: adde oblique isometric paloff press 06/01/24: initiated prone LE ext , reviewed doorway hip flexor stretch. 06/18/24: NBOS stride stance uneven surface standing pull downs, sit>stand into over head press 5# DB BUE. LTG Duration 12 wks-07/24/24 progressing 06/18/24 Assessment Summary Assessment Pt reports did ok for 1 week after injection (2 weeks ago) but return normal pain last week, see Dr Morgan next week see what else can do. Pt good tolerance progress resisted core seated Physical Therapy Plan Frequency and Duration Frequency of Treatment 2x/Week Duration of treatment (weeks) 12 Plan of Care Start Date 04/28/24 Plan of Care End Date 07/24/24 Therapeutic Interventions Therapeutic Interventions Balance Training,Gait Training ,Home Exercise Program,Manual Therapy,Self-Care/Home Management,Soft Tissue Mobilization,Therapeutic Activities,Therapeutic Exercises Modalities Cold Pack/Ice Massage,Hot Packs Next Visit Focus/Plan Next Note Type Treatment Note Next Visit Plan See Precautions. 5th Visit /c PT. Ask how doing and if what feel need to progress balance or if ready for DC? Next: PT remeasure Hamstring mobility for validity compare to PAVER LAYER measurement 05/20/24. If continue REcheck HS stretch, hip flexor stretch, prone LE ext and uneven surface semi tandem UE ext. Add Trial lunges near rail for progression strength and bal uneven surface. Continue Core strengthening ( NO lumbar rot/SB due to surgical hx), balance training , hip strengthening. Exer: progress LE: L flex/ER/ IR, franci AD strengthening. POC: Decrease pain franci LB/ hips & Core/hip stabilization/ strengthening; painfree hip mobility ex's; LB/hip ST;, transfer training (hip hinging ); FOCUS ON: SELF pain mgmt; ADLs; improve balance.
--- NOTE | 2024-06-23 17:25 | PT.OTN ---
Current Diagnoses Other chronic pain (06/23/24) Low back pain, unspecified (06/23/24) Neuralgia and neuritis, unspecified (06/23/24) Other specified postprocedural states (06/23/24) Physical Therapy Treatment Note PT-OP-A Visit Information Start: 03/05/24 16:26 Freq: Status: Active Protocol: Document 06/23/24 10:32 LRN (Rec: 06/23/24 11:18 LRN [id number]) Out-Patient Physical Therapy Visit Information Visit Information Visit Type Treatment Note Visit Note 04/06 post PN Visit Start Time 10:32 Visit Stop Time 11:17 Visit Number 18 Evaluation Information Evaluation Date 03/06/24 Precautions Precautions TAPE ALLERGY. PMH: Anterior L YANELY-07/20, No Bending Lifting Twisting (told after SI lock surgery - R 10/04/2023, L 01/18) - told recover time after surgery 6 months by different physician. PT-OP-B Current Condition Start: 03/05/24 16:26 Freq: Status: Active Protocol: Document 03/06/24 11:18 LRN (Rec: 03/06/24 12:21 LRN [id number]) Current Condition History of Current Condition Onset Date 10/2023 Current Complaints SI pain, lateral hip and posterior hip/pelvic pain History of Current Condition Pt reportedly has had a sequence of surgeries in [place], starting 8 yrs ago and hasn't been able to get back into condition since. Last 2 surgeries were SI locks/ fusions with pinnings R side Sep 2023, L side 12/2023. Has pain on both sides different than prior to surgery. Expected outcome was relief of pain with transition (most standing up). His complaints now are pain that wakes him up in the morning, lateral hip and lateral/posterior pelvic pain. LBP starts later in the day. Pt moved to [facility] Aug 2023. 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 Prior Treatments and Tests Post surgical rehab in [place] after each SI lock/ fusion surgeries, both inpt and outpt rehab. Treatment Goals Patient/Caregiver Goals Pt goal: - core and gluteal strengthening and balance training. Be able to lift from 30-45 lbs. - Sit for more than 10' due to back (tight hamstrings). - independent in HEP. Current Functional Impairments (Reported) Functional Limitations- ADL's Stationary bike 6x/week - 15'/ day. 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 PT-OP-C Subjective Start: 03/05/24 16:26 Freq: Status: Active Protocol: Document 06/23/24 10:32 LRN (Rec: 06/23/24 11:18 LRN [id number]) OP-PT Subjective Patient Comments Patient Comments Had minor relief after the epidural, but passed after the first week. Again uncomfortable of varing pain. Must get up and move when pain is 6/10, then fatigues and sits again. Was able to reduce pain with epidural to 3 -4/10. Last week moved a 40# pellet fuel from pile to light hand truck to inside house. PT-OP-H Neuro Start: 03/05/24 16:26 Freq: Status: Active Protocol: Document 04/14/24 13:47 LRN (Rec: 04/14/24 16:25 LRN [id number]) Sensation Evaluation Location Details Right Lower Leg Light Touch Impaired Comments Summary Comments Decreased sensation of R lower leg from the top of the leg brace distally and from briscoe to brace upright stay. PT-OP-J Posture/Palpation/Skin Start: 03/05/24 16:26 Freq: Status: Active Protocol: Document 03/06/24 11:18 LRN (Rec: 03/06/24 12:21 LRN [id number]) Posture Evaluation Position Standing Head/C-Spine Posture Forward Head T-Spine Posture Increased Kyphosis L-Spine Posture Flattened Shoulder Posture (R) Elevated Comments Posture Comments Head shifted left, R shoulder elevated, protruding R ACJ, very slight anterior pelvic tilt, wide stance. Palpation Assessment Location Low back Palpation Location L paraspinasl ~T6-T12 Palpation Findings Muscle Guarding PT-OP-K Range of Motion Start: 03/05/24 16:26 Freq: Status: Active Protocol: Document 05/20/24 13:50 SP (Rec: 05/20/24 15:28 SP [id number]) Hip Goniometric Range of Motion Hip Right Active Testing Position Supine Straight Leg Raise 100 Comments PSLR AROM SLR: 90 deg Left Active Testing Position Supine Straight Leg Raise 92 Comments PSLR AROM SLR: 86 deg PT-OP-M Strength Start: 03/05/24 16:26 Freq: Status: Active Protocol: Document 03/06/24 11:18 LRN (Rec: 03/06/24 12:21 LRN [id number]) Trunk Strength Trunk Manual Muscle Testing Core Stabilization Mild to moderate loss of core stability as noted with MMT of LE's (primarily with flex and rotation). Hip Strength Hip Manual Muscle Testing Right Abduction 4 Good Adduction 2- Poor- Comments Hip strength is 5/5 except as indicated above. Left Flexion (L2) 4+ Good+ Adduction 2 Poor External Rotation 3 Fair Internal Rotation 3 Fair Comments Hip strength is 5/5 except as indicated above. PT-OP-Q Treatments Start: 03/05/24 16:26 Freq: Status: Active Protocol: Document 06/23/24 10:32 LRN (Rec: 06/23/24 11:18 LRN [id number]) Cardio Equipment Recumbent Bicycle Duration (Minutes) 10 Resistance 6>7 Seat Position 8 Other good effort, helps a nerve glide response Therapeutic Exercises Supine Exercises SLR Supine Exercise Name TA/SLR angle- hip flexion Side bilateral Reps/Minutes 10x Franci , 10x R hamstring stretch Supine Exercise Name from hooklying with ankle pumps on with knee flexion X 5 Side bilateral Reps/Minutes 60 seconds X 1 LLE, x2 RLE. hip flexor stretch Supine Exercise Name edge of elevated table Side bilateral Equipment Used *not able do home Reps/Minutes one minute each LE, f/b single leg nelda glut squeeze (5SH-10 reps) Comments L is tighter than R bug Supine Exercise Name bug with arms leg, then legs, then arms; folded towel in small of back Side bilateral Reps/Minutes x10 reps Comments good PPT LB toward floor, pnfree bridge /c hip abd Supine Exercise Name Resisted bridges Equipment Used TB #3 at thighs, 15 # leg wt held in place at upper thighs Reps/Minutes 20x, 10x Prone Exercises Plank on wedge Reps/Minutes 5 SH x 5 Comments Cued to breathe LE ext Prone Exercise Name Pillow under hips/TA/Hip slight extension Side bilateral Reps/Minutes 3-5 SH x 5 Comments Assist to lift to identify with pt not doing hip flex w/ hip ext Sitting Exercises seated resisted paloff press isometric Sitting Exercise Name HEP- (past declined HO) Side bilateral Resistance match-e-be-n[place]ish band green, purple band (#6 latex free) Reps/Minutes 10 press [place] green, 10 SH x5 reps purple Comments cued for posture/neutral spine Other Exercises child's pose Other Exercise Name After planks Reps/Minutes 10 stretch x 3 Comments good back stretch PT-OP-T Assessment and Plan Start: 03/05/24 16:26 Freq: Status: Active Protocol: Document 06/23/24 10:32 LRN (Rec: 06/23/24 11:18 LRN [id number]) Physical Therapy Assessment Goals Three Impairment Decreased functional strength for performing home activities of lifting. Impairment Pt goal: - core and gluteal strength and balance. Be able to lift from 30 to 45. - Can't sit for more than 10' due to back (tight hamstrings) . - independent in HEP. Short Term Goal (STG) Pt will be educated in proper body mechanics for DLS and Mtz to Safe Movement. 04/02/24: Pt training/ education in body mechanics for ADLs & Proper Posture for Mtz to Safe Movement. STG Duration 4 wks-04/03/24 (04/02/24: MET GOAL) Detention Goal (LTG) Pt will be able to tolerate lifting 30#-45# with modification of lifting technique for functional activities at home. 03/16/24: incorporated straight back hip hinge in mirror deadlift 20# (2-10# DB). 05/20/24: progressing 30#: 2- 15# DB deadlift good hip hinge straight back painfree. : 10#DB BUE deadlift no pain good mechanics. 06/23/24: Pt reporting moving 40# heating pellets from stack to handtruck and into his home. LTG Duration 07/24/24 progressiing Two Impairment Decreased sitting tolerance due to pain Impairment Can't sit for more than 10' due to back. Short Term Goal (STG) Improve LE mobility (tight hamstrings) and if tolerated neural mobility. 03/16/24: added standing bottoms up active HS stretch ( hands on step, knee ext). 05/20/24: progressing increased HS mobility: PROM 100 deg R, 92 deg L, AROM 90 deg R, 86deg L STG Duration 4 wks-05/29/24 progressing Detention Goal (LTG) Pt will be able to improve functional sitting of 30-60' with modification of sitting or performing sitting mobility ex's to decrease pain. 04/09/2024 Patient reports sitting for one hour, but with increased ankle pain post, which decreased by 1/2 post manual therapy and and exercise. 04/27/24: Sitting in morning 10', in evening sit for 1 hr. 06/01/24: sitting early am sitting after wake up awaiting coffee 10 min before need stand, later am and later peak of day 4-430 takes Tylenol and Oxy to give relief. 06/18/24: slow progress: can sit approx 10 min drinking coffee have to stand up. LTG Duration 07/24/24 slow progression One Impairment Lacks appropriate self care HEP Impairment Pt goal: - core and gluteal strength and balance. Be able to lift from 30 to 45. - Can't sit for more than 10' due to back (tight hamstrings) . - independent in HEP. Short Term Goal (STG) Will be instructed in HEP for balance and nelda core strengthening ex's to support therapy services provided in clinic. 03/09/24: NAM 50/56, Radha 14/16. 03/16/24: reviewed deadbug, bridge /c hip abd #3 TB, resisted lateral stepping, repeated step up- L>R glut med /pirifor weakness. 06/01/24: HEP stationary bike, stretching: down dog, bridge, lifts 30# more stretching , child's pose, HS stretch supine, squat<> stand into over head lift 10# DB tiring no added pain 5 reps. lift increased 20# each UE. 06/18/24: NBOS stride stance uneven surface standing pull downs, sit>stand into over head press 5# DB BUE. STG Duration 4 wks-05/29/24 progressing 06/18/24 Detention Goal (LTG) Pt will be independent with HEP of general LE strengthening and hip ROM ex's with the goal of improving pt 's perception of safety with gait. 03/16/24: progressing:bridge /c hip abd #3 TB, resisted lateral stepping, repeated step up- L>R glut med/pirifor weakness. 04/07/2024 Seated hip abd with band added to HEP 04/09/2024 Added stretching HS /c AP, and AROM knee flexion to HEP 04/16/24: HEP: Hip strengthening: hip AB/AD (sup & sidelie), Clamshell/Reverse clamshell, SLR, Bridge. 05/20/24: adde oblique isometric paloff press 06/01/24: initiated prone LE ext , reviewed doorway hip flexor stretch. 06/18/24: NBOS stride stance uneven surface standing pull downs, sit>stand into over head press 5# DB BUE. LTG Duration 12 wks-07/24/24 progressing 06/18/24 Assessment Summary Assessment Pt return to baseline of pain since start of therapy with no changes in pain noted in PT. Pt is doing more at home and has difficulty sitting still, and he feels therapy is helpful. Progressed core/ trunk strengthening w/no complaints of pain or numbness in legs. Pt is able to perform a plank and for lumbar paraspinal strengthening tolerated hip ext with pillow under hips without c/o of discomfort. Pt may be able to tolerate further core/back stabilization/strengthening and balance training. Goal of lifting 30-45# is probably unrealistic if pt wants to prevent worsening of pain/numbness in R leg. Physical Therapy Plan Frequency and Duration Frequency of Treatment 2x/Week Duration of treatment (weeks) 12 Plan of Care Start Date 04/28/24 Plan of Care End Date 07/24/24 Next Visit Focus/Plan Next Note Type Treatment Note Next Visit Plan See Precautions. KX modifier next visit. Next: PT remeasure Hamstring mobility for validity compare to [employer] measurement. 05/20/24. Continue functional balance training. Recheck HS stretch, hip flexor stretch, prone LE ext and uneven surface semi tandem UE ext. Add Trial lunges near rail for progression strength and bal uneven surface. Continue Core strengthening ( NO lumbar rot/SB due to surgical hx), balance training , hip strengthening. Exer: progress LE: L flex/ER/ IR, franci AD strengthening. POC: Decrease pain franci LB/ hips & Core/hip stabilization/ strengthening; painfree hip mobility ex's; LB/hip ST;, transfer training (hip hinging ); FOCUS ON: SELF pain mgmt; ADLs; improve balance.
--- NOTE | 2024-06-26 12:11 | PT.OTN ---
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 PMH: Anterior L YANELY-07/20, No Bending Lifting Twisting (told after SI lock surgery - R 10/04/2023, L 01/18) - told recover time after surgery 6 months by different physician. PT-OP-B Current Condition Start: 03/05/24 16:26 Freq: Status: Active Protocol: Document 03/06/24 11:18 LRN (Rec: 03/06/24 12:21 LRN [id number]) Current Condition History of Current Condition Onset Date 10/2023 Current Complaints SI pain, lateral hip and posterior hip/pelvic pain History of Current Condition Pt reportedly has had a sequence of surgeries in [place], starting 8 yrs ago and hasn't been able to get back into condition since. Last 2 surgeries were SI locks/ fusions with pinnings R side Sep 2023, L side 12/2023. Has pain on both sides different than prior to surgery. Expected outcome was relief of pain with transition (most standing up). His complaints now are pain that wakes him up in the morning, lateral hip and lateral/posterior pelvic pain. LBP starts later in the day. Pt moved to 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 Treatment Goals Patient/Caregiver Goals Pt goal: - core and gluteal strengthening and balance training. Be able to lift from 30-45 lbs. - Sit for more than 10' due to back (tight hamstrings). - independent in HEP. Current Functional Impairments (Reported) Functional Limitations- ADL's Stationary bike 6x/week - 15'/ day. 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 PT-OP-C Subjective Start: 03/05/24 16:26 Freq: Status: Active Protocol: Document 06/26/24 11:21 SP (Rec: 06/26/24 12:10 SP [id number]) OP-PT Subjective Patient Comments Patient Comments Pt no new reports, only got 1 week relief from epidural. He is coordinating his follow up appt post last procedure ( supposed to be 2 weeks ago) that got cancelled by physician, decide if continue or assess further treatment. PT-OP-H Neuro Start: 03/05/24 16:26 Freq: Status: Active Protocol: Document 04/14/24 13:47 LRN (Rec: 04/14/24 16:25 LRN [id number]) Sensation Evaluation Location Details Right Lower Leg Light Touch Impaired Comments Summary Comments Decreased sensation of R lower leg from the top of the leg brace distally and from briscoe to brace upright stay. PT-OP-J Posture/Palpation/Skin Start: 03/05/24 16:26 Freq: Status: Active Protocol: Document 03/06/24 11:18 LRN (Rec: 03/06/24 12:21 LRN [id number]) Posture Evaluation Position Standing Head/C-Spine Posture Forward Head T-Spine Posture Increased Kyphosis L-Spine Posture Flattened Shoulder Posture (R) Elevated Comments Posture Comments Head shifted left, R shoulder elevated, protruding R ACJ, very slight anterior pelvic tilt, wide stance. Palpation Assessment Location Low back Palpation Location L paraspinasl ~T6-T12 Palpation Findings Muscle Guarding PT-OP-K Range of Motion Start: 03/05/24 16:26 Freq: Status: Active Protocol: Document 06/26/24 11:21 SP (Rec: 06/26/24 12:10 SP [id number]) Hip Goniometric Range of Motion Hip Right Active Testing Position Supine Straight Leg Raise 105 Comments PSLR SLR: 90 deg Left Active Testing Position Supine Straight Leg Raise 92 Comments PSLR SLR: 95 deg PT-OP-M Strength Start: 03/05/24 16:26 Freq: Status: Active Protocol: Document 03/06/24 11:18 LRN (Rec: 03/06/24 12:21 LRN [id number]) Trunk Strength Trunk Manual Muscle Testing Core Stabilization Mild to moderate loss of core stability as noted with MMT of LE's (primarily with flex and rotation). Hip Strength Hip Manual Muscle Testing Right Abduction 4 Good Adduction 2- Poor- Comments Hip strength is 5/5 except as indicated above. Left Flexion (L2) 4+ Good+ Adduction 2 Poor External Rotation 3 Fair Internal Rotation 3 Fair Comments Hip strength is 5/5 except as indicated above. PT-OP-Q Treatments Start: 03/05/24 16:26 Freq: Status: Active Protocol: Document 06/26/24 11:21 SP (Rec: 06/26/24 12:10 SP [id number]) Cardio Equipment Recumbent Bicycle Duration (Minutes) 12 Resistance 7>8 Seat Position 8 Other good effort, PATRICK scale 13 somewhat Therapeutic Exercises Supine Exercises SLR Supine Exercise Name TA/SLR angle- hip flexion Side bilateral Reps/Minutes 10x2 pause 1 SH end feeg Comments good form, pnfree Prone Exercises Plank on wedge Resistance forearms and feet Equipment Used on elevated table Reps/Minutes 14 sec, 30SH Comments good breath a LE ext Prone Exercise Name Pillow under hips/TA/Hip slight extension Side bilateral Reps/Minutes 3SH x 7 Franci, 8 reps Franci Comments Assist to lift to identify with pt not doing hip flex w/ hip ext PRERNA Prone Exercise Name self HEP reviewed Side bilateral Reps/Minutes 20 sec Comments demos tall on elbows to elongate spine pnfree range Sitting Exercises seated resisted paloff press isometric Sitting Exercise Name HEP- (past declined HO) Side bilateral Resistance enterprise green, purple band (#6 latex free) Reps/Minutes 10 press [place] green 5 SH, 10 SH x5 reps purple Comments cued for posture/neutral spine Other Exercises child's pose Other Exercise Name after LE ext and planks Reps/Minutes 10 stretch x 3 Comments good back stretch PT-OP-T Assessment and Plan Start: 03/05/24 16:26 Freq: Status: Active Protocol: Document 06/26/24 11:21 SP (Rec: 06/26/24 12:10 SP [id number]) Physical Therapy Assessment Goals Three Impairment Decreased functional strength for performing home activities of lifting. Impairment Pt goal: - core and gluteal strength and balance. Be able to lift from 30 to 45. - Can't sit for more than 10' due to back (tight hamstrings) . - independent in HEP. Short Term Goal (STG) Pt will be educated in proper body mechanics for DLS and Mtz to Safe Movement. 04/02/24: Pt training/ education in body mechanics for ADLs & Proper Posture for Mtz to Safe Movement. STG Duration 4 wks-04/03/24 (04/02/24: MET GOAL) Fdc Goal (LTG) Pt will be able to tolerate lifting 30#-45# with modification of lifting technique for functional activities at home. 03/16/24: incorporated straight back hip hinge in mirror deadlift 20# (2-10# DB). 05/20/24: progressing 30#: 2- 15# DB deadlift good hip hinge straight back painfree. : 10#DB BUE deadlift no pain good mechanics. 06/23/24: Pt reporting moving 40# heating pellets from stack to handtruck and into his home. LTG Duration 07/24/24 progressiing Two Impairment Decreased sitting tolerance due to pain Impairment Can't sit for more than 10' due to back. Short Term Goal (STG) Improve LE mobility (tight hamstrings) and if tolerated neural mobility. 03/16/24: added standing bottoms up active HS stretch ( hands on step, knee ext). 05/20/24: progressing increased HS mobility: PROM 100 deg R, 92 deg L, AROM 90 deg R, 86deg L STG Duration 4 wks-05/29/24 progressing Catcher Plug Goal (LTG) Pt will be able to improve functional sitting of 30-60' with modification of sitting or performing sitting mobility ex's to decrease pain. 04/09/2024 Patient reports sitting for one hour, but with increased ankle pain post, which decreased by 1/2 post manual therapy and and exercise. 04/27/24: Sitting in morning 10', in evening sit for 1 hr. 06/01/24: sitting early am sitting after wake up awaiting coffee 10 min before need stand, later am and later peak of day 4-430 takes Tylenol and Oxy to give relief. 06/18/24: slow progress: can sit approx 10 min drinking coffee have to stand up. LTG Duration 07/24/24 slow progression One Impairment Lacks appropriate self care HEP Impairment Pt goal: - core and gluteal strength and balance. Be able to lift from 30 to 45. - Can't sit for more than 10' due to back (tight hamstrings) . - independent in HEP. Short Term Goal (STG) Will be instructed in HEP for balance and nelda core strengthening ex's to support therapy services provided in clinic. 03/09/24: NAM 50/56, Radha 14/16. 03/16/24: reviewed deadbug, bridge /c hip abd #3 TB, resisted lateral stepping, repeated step up- L>R glut med /pirifor weakness. 06/01/24: HEP stationary bike, stretching: down dog, bridge, lifts 30# more stretching , child's pose, HS stretch supine, squat<> stand into over head lift 10# DB tiring no added pain 5 reps. lift increased 20# each UE. 06/18/24: NBOS stride stance uneven surface standing pull downs, sit>stand into over head press 5# DB BUE. STG Duration 4 wks-05/29/24 progressing 06/18/24 Fdc Goal (LTG) Pt will be independent with HEP of general LE strengthening and hip ROM ex's with the goal of improving pt 's perception of safety with gait. 03/16/24: progressing:bridge /c hip abd #3 TB, resisted lateral stepping, repeated step up- L>R glut med/pirifor weakness. 04/07/2024 Seated hip abd with band added to HEP 04/09/2024 Added stretching HS /c AP, and AROM knee flexion to HEP 04/16/24: HEP: Hip strengthening: hip AB/AD (sup & sidelie), Clamshell/Reverse clamshell, SLR, Bridge. 05/20/24: adde oblique isometric paloff press 06/01/24: initiated prone LE ext , reviewed doorway hip flexor stretch. 06/18/24: NBOS stride stance uneven surface standing pull downs, sit>stand into over head press 5# DB BUE. LTG Duration 12 wks-07/24/24 progressing 06/18/24 Assessment Summary Assessment Pt reports continue no changes in pain, back to baseline pain. Good core and stable good form spinal alignment during planks, was able to hold plank for 30 sec with no pain 2nd rep. Pt reports I always feel good after PT. Physical Therapy Plan Frequency and Duration Frequency of Treatment 2x/Week Duration of treatment (weeks) 12 Plan of Care Start Date 04/28/24 Plan of Care End Date 07/24/24 Therapeutic Interventions Therapeutic Interventions Balance Training,Gait Training ,Home Exercise Program,Manual Therapy,Self-Care/Home Management,Soft Tissue Mobilization,Therapeutic Activities,Therapeutic Exercises Modalities Cold Pack/Ice Massage,Hot Packs Next Visit Focus/Plan Next Note Type Treatment Note Next Visit Plan See Precautions. KX modifier next visit 07/03, 08/06 visit post PN. Next: PT to remeasure 07/07/24 Hamstring mobility for validity compare to [employer]OV[employer] OPERATOR measurement for validity. Continue functional balance training. Recheck HS stretch, hip flexor stretch, prone LE ext and uneven surface semi tandem UE ext. Add Trial lunges near rail for progression strength and bal uneven surface. Continue Core strengthening ( NO lumbar rot/SB due to surgical hx), balance training , hip strengthening. Exer: progress LE: L flex/ER/ IR, franci AD strengthening. POC: Decrease pain franci LB/ hips & Core/hip stabilization/ strengthening; painfree hip mobility ex's; LB/hip ST;, transfer training (hip hinging ); FOCUS ON: SELF pain mgmt; ADLs; improve balance.
--- NOTE | 2024-07-03 15:20 | PT.OTN ---
Current Diagnoses Other chronic pain (07/03/24) Low back pain, unspecified (07/03/24) Neuralgia and neuritis, unspecified (07/03/24) Other specified postprocedural states (07/03/24) Physical Therapy Treatment Note PT-OP-A Visit Information Start: 03/05/24 16:26 Freq: Status: Active Protocol: Document 07/03/24 14:35 SP (Rec: 07/03/24 15:54 SP [id number]) Out-Patient Physical Therapy Visit Information Visit Information Visit Type Treatment Note Visit Note 08/06 post PN Visit Start Time 14:35 Visit Stop Time 15:20 Visit Number 20 Number of LIFE SKILLS INSTRUCTOR Visits 2 Evaluation Information Evaluation Date 03/06/24 Precautions Precautions TAPE ALLERGY. PMH: Anterior L YANELY-07/20, No Bending Lifting Twisting (told after SI lock surgery - R 10/04/2023, L 01/18) - told recover time after surgery 6 months by different physician. PT-OP-B Current Condition Start: 03/05/24 16:26 Freq: Status: Active Protocol: Document 03/06/24 11:18 LRN (Rec: 03/06/24 12:21 LRN [id number]) Current Condition History of Current Condition Onset Date 10/2023 Current Complaints SI pain, lateral hip and posterior hip/pelvic pain History of Current Condition Pt reportedly has had a sequence of surgeries in [place], starting 8 yrs ago and hasn't been able to get back into condition since. Last 2 surgeries were SI locks/ fusions with pinnings R side Sep 2023, L side 12/2023. Has pain on both sides different than prior to surgery. Expected outcome was relief of pain with transition (most standing up). His complaints now are pain that wakes him up in the morning, lateral hip and lateral/posterior pelvic pain. LBP starts later in the day. Pt moved to [facility] Aug 2023. 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 Prior Treatments and Tests Post surgical rehab in [place] after each SI lock/ fusion surgeries, both inpt and outpt rehab. Treatment Goals Patient/Caregiver Goals Pt goal: - core and gluteal strengthening and balance training. Be able to lift from 30-45 lbs. - Sit for more than 10' due to back (tight hamstrings). - independent in HEP. Current Functional Impairments (Reported) Functional Limitations- ADL's Stationary bike 6x/week - 15'/ day. 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 PT-OP-C Subjective Start: 03/05/24 16:26 Freq: Status: Active Protocol: Document 07/03/24 14:35 SP (Rec: 07/03/24 15:54 SP [id number]) OP-PT Subjective Patient Comments Patient Comments Pt reports felt good after last x. Trying not to over do activty but had to get in/out small spaces recently at work. Is useing MATTHEW Lotion vs lydocaine patches for assist nerve pain relief. Today is first day in 2 weeks headache free. Pt reports is getting stronger but not as good balance as would like to be at and wanting to continue PT little longer and work toward more stability while moving. PT-OP-H Neuro Start: 03/05/24 16:26 Freq: Status: Active Protocol: Document 04/14/24 13:47 LRN (Rec: 04/14/24 16:25 LRN [id number]) Sensation Evaluation Location Details Right Lower Leg Light Touch Impaired Comments Summary Comments Decreased sensation of R lower leg from the top of the leg brace distally and from briscoe to brace upright stay. PT-OP-J Posture/Palpation/Skin Start: 03/05/24 16:26 Freq: Status: Active Protocol: Document 03/06/24 11:18 LRN (Rec: 03/06/24 12:21 LRN [id number]) Posture Evaluation Position Standing Head/C-Spine Posture Forward Head T-Spine Posture Increased Kyphosis L-Spine Posture Flattened Shoulder Posture (R) Elevated Comments Posture Comments Head shifted left, R shoulder elevated, protruding R ACJ, very slight anterior pelvic tilt, wide stance. Palpation Assessment Location Low back Palpation Location L paraspinasl ~T6-T12 Palpation Findings Muscle Guarding PT-OP-K Range of Motion Start: 03/05/24 16:26 Freq: Status: Active Protocol: Document 06/26/24 11:21 SP (Rec: 06/26/24 12:10 SP [id number]) Hip Goniometric Range of Motion Hip Right Active Testing Position Supine Straight Leg Raise 105 Comments PSLR SLR: 90 deg Left Active Testing Position Supine Straight Leg Raise 92 Comments PSLR SLR: 95 deg PT-OP-M Strength Start: 03/05/24 16:26 Freq: Status: Active Protocol: Document 03/06/24 11:18 LRN (Rec: 03/06/24 12:21 LRN [id number]) Trunk Strength Trunk Manual Muscle Testing Core Stabilization Mild to moderate loss of core stability as noted with MMT of LE's (primarily with flex and rotation). Hip Strength Hip Manual Muscle Testing Right Abduction 4 Good Adduction 2- Poor- Comments Hip strength is 5/5 except as indicated above. Left Flexion (L2) 4+ Good+ Adduction 2 Poor External Rotation 3 Fair Internal Rotation 3 Fair Comments Hip strength is 5/5 except as indicated above. PT-OP-Q Treatments Start: 03/05/24 16:26 Freq: Status: Active Protocol: Document 07/03/24 14:35 SP (Rec: 07/03/24 15:54 SP [id number]) Cardio Equipment Recumbent Bicycle Duration (Minutes) 15 Resistance 6 (5 min)> 9 (11 min) Seat Position 8 Other good effort, PATRICK scale 13 somewhat Gym Equipment Sport Cord green Exercise Details 1. f,b, lateral 2. fwd/back down, lateral onto 4 step Cord/Resistance green, stepping on uneven mat Reps/Duration 5 reps each side Comments initial CGA-5% ARC AND GAS WELDER then CGA- finger distance SBA for safety Therapeutic Exercises Sitting Exercises sit>stand>OH press Sitting Exercise Name sit to stand into Over head press Side bilateral Resistance 10#Db in each UE Equipment Used mesh chair Reps/Minutes 10, 8 reps Comments good form and response- I like this, all core. Standing Exercises deadlift mechanics Standing Exercise Name reviewed HEP Resistance 2- 25# DB (increased by 5) Reps/Minutes 2x10 Comments mini squat held Db at side of legs, cued chest lift- pnfree reported bottoms up Standing Exercise Name HS stretch- Side bilateral Equipment Used mesh chair (18 height) Reps/Minutes 20 SH between activities as needed Comments good back straight hip hinge, knee ext for HS stretch- good feedback stre. Neuro Re-Education Treatment Balance Activities SLS Details assess baseline ability Surface floor Equipment wall contact Comments 1-2 sec each LE corner balance Details trialed in PT: tandem, SLS Surface floor Equipment back to corner, chair front PRN contact needed Reps/Duration 3 min Comments *stationary- not timed stable *head turns- little sway, occasional shld contact wall at side *EC- Unable LOB back/lateral into wall recovery PT-OP-T Assessment and Plan Start: 03/05/24 16:26 Freq: Status: Active Protocol: Document 07/03/24 14:35 SP (Rec: 07/03/24 15:54 SP [id number]) Physical Therapy Assessment Goals Three Impairment Decreased functional strength for performing home activities of lifting. Impairment Pt goal: - core and gluteal strength and balance. Be able to lift from 30 to 45. - Can't sit for more than 10' due to back (tight hamstrings) . - independent in HEP. Short Term Goal (STG) Pt will be educated in proper body mechanics for DLS and Mtz to Safe Movement. 04/02/24: Pt training/ education in body mechanics for ADLs & Proper Posture for Mtz to Safe Movement. STG Duration 4 wks-04/03/24 (04/02/24: MET GOAL) Chute Greaser Goal (LTG) Pt will be able to tolerate lifting 30#-45# with modification of lifting technique for functional activities at home. 03/16/24: incorporated straight back hip hinge in mirror deadlift 20# (2-10# DB). 05/20/24: progressing 30#: 2- 15# DB deadlift good hip hinge straight back painfree. : 10#DB BUE deadlift no pain good mechanics. 06/23/24: Pt reporting moving 40# heating pellets from stack to handtruck and into his home. 07/03/24: GOAL MET: able to lift 25lb wts in each UE. LTG Duration 07/24/24 GOAL MET: 07/02/24 Two Impairment Decreased sitting tolerance due to pain Impairment Can't sit for more than 10' due to back. Short Term Goal (STG) Improve LE mobility (tight hamstrings) and if tolerated neural mobility. 03/16/24: added standing bottoms up active HS stretch ( hands on step, knee ext). 05/20/24: progressing increased HS mobility: PROM 100 deg R, 92 deg L, AROM 90 deg R, 86deg L STG Duration 4 wks-05/29/24 progressing [facility] Goal (LTG) Pt will be able to improve functional sitting of 30-60' with modification of sitting or performing sitting mobility ex's to decrease pain. 04/09/2024 Patient reports sitting for one hour, but with increased ankle pain post, which decreased by 1/2 post manual therapy and and exercise. 04/27/24: Sitting in morning 10', in evening sit for 1 hr. 06/01/24: sitting early am sitting after wake up awaiting coffee 10 min before need stand, later am and later peak of day 4-430 takes Tylenol and Oxy to give relief. 06/18/24: slow progress: can sit approx 10 min drinking coffee have to stand up. 07/03/24: PRogressing: Able to sit 15 min before needs to stand due to discomfort. So elevates work station and continues work then when needed stops and dose stretching and helps provide relief then returns. LTG Duration 07/24/24 slow progression One Impairment Lacks appropriate self care HEP Impairment Pt goal: - core and gluteal strength and balance. Be able to lift from 30 to 45. - Can't sit for more than 10' due to back (tight hamstrings) . - independent in HEP. Short Term Goal (STG) Will be instructed in HEP for balance and nelda core strengthening ex's to support therapy services provided in clinic. 03/09/24: NAM 50/56, TInetti 14/16. 03/16/24: reviewed deadbug, bridge /c hip abd #3 TB, resisted lateral stepping, repeated step up- L>R glut med /pirifor weakness. 06/01/24: HEP stationary bike, stretching: down dog, bridge, lifts 30# more stretching , child's pose, HS stretch supine, squat<> stand into over head lift 10# DB tiring no added pain 5 reps. lift increased 20# each UE. 06/18/24: NBOS stride stance uneven surface standing pull downs, sit>stand into over head press 5# DB BUE. 07/03/24: initiated corner balance tandem and SLS, recheck to add to HEP next tx. STG Duration 4 wks-05/29/24 progressing 07/03/24 Chute Greaser Goal (LTG) Pt will be independent with HEP of general LE strengthening and hip ROM ex's with the goal of improving pt 's perception of safety with gait. 03/16/24: progressing:bridge /c hip abd #3 TB, resisted lateral stepping, repeated step up- L>R glut med/pirifor weakness. 04/07/2024 Seated hip abd with band added to HEP 04/09/2024 Added stretching HS /c AP, and AROM knee flexion to HEP 04/16/24: HEP: Hip strengthening: hip AB/AD (sup & sidelie), Clamshell/Reverse clamshell, SLR, Bridge. 05/20/24: adde oblique isometric paloff press 06/01/24: initiated prone LE ext , reviewed doorway hip flexor stretch. 06/18/24: NBOS stride stance uneven surface standing pull downs, sit>stand into over head press 5# DB BUE. LTG Duration 12 wks-07/24/24 progressing 06/18/24 Assessment Summary Assessment Pt reported is compliant and I with stretching HEP, wanted to focus on strength and balance today. Good response and focused effort during body mechanics lifting 50# DBs this tx. Initiated sport cord dynamic walking balance on uneven mat today, cued slower eccentric R for allowance of R ankle stability laterally. Cues for wt shift over advanced LE to allow more midline stability. Pt was challenged assess of SLS ( needing UE support) and tandem stance activities in corner this tx (at end tx). Pt would benefit from continued balance focus, uneven surface walking , stable surface dynamic gait head turns, outdoor surfance gait to progress stabiltiy for ability to navigate community surfaces with lessening AD support. Physical Therapy Plan Frequency and Duration Frequency of Treatment 2x/Week Duration of treatment (weeks) 12 Plan of Care Start Date 04/28/24 Plan of Care End Date 07/24/24 Therapeutic Interventions Therapeutic Interventions Balance Training,Gait Training ,Home Exercise Program,Manual Therapy,Self-Care/Home Management,Soft Tissue Mobilization,Therapeutic Activities,Therapeutic Exercises Modalities Cold Pack/Ice Massage,Hot Packs Next Visit Focus/Plan Next Note Type Progress Note Next Visit Plan See Precautions. KX modifier started 07/03, PN next tx (11th visit). Next: PT remeasure Hamstring mobility for validity compare to [employer] SKILLS INSTRUCTOR measurement and Continue functional balance training, sport cord, uneven surface walking, corner balance (give as HEP next tx). POC: Recheck HS stretch, hip flexor stretch, prone LE ext and uneven surface semi tandem UE ext. Add Trial lunges near rail for progression strength and bal uneven surface. Continue Core strengthening ( NO lumbar rot/SB due to surgical hx), balance training , hip strengthening. Exer: progress LE: L flex/ER/ IR, franci AD strengthening. POC: Decrease pain franci LB/ hips & Core/hip stabilization/ strengthening; painfree hip mobility ex's; LB/hip ST;, transfer training (hip hinging ); FOCUS ON: SELF pain mgmt; ADLs; improve balance.
--- NOTE | 2024-07-07 15:59 | PT.OTN ---
Current Diagnoses Other chronic pain (07/07/24) Low back pain, unspecified (07/07/24) Neuralgia and neuritis, unspecified (07/07/24) Other specified postprocedural states (07/07/24) Physical Therapy Treatment Note PT-OP-A Visit Information Start: 03/05/24 16:26 Freq: Status: Active Protocol: Document 07/07/24 11:19 LRN (Rec: 07/07/24 12:43 LRN [id number]) Out-Patient Physical Therapy Visit Information Visit Information Visit Type Progress Note Visit Start Time 11:18 Visit Stop Time 12:02 Visit Number Evaluation Information Evaluation Date 03/06/24 Precautions Precautions TAPE ALLERGY. PMH: Anterior L YANELY-07/20, No Bending Lifting Twisting (told after SI lock surgery - R 10/04/2023, L 01/18) - told recover time after surgery 6 months by different physician. PT-OP-B Current Condition Start: 03/05/24 16:26 Freq: Status: Active Protocol: Document 03/06/24 11:18 LRN (Rec: 03/06/24 12:21 LRN [id number]) Current Condition History of Current Condition Onset Date 10/2023 Current Complaints SI pain, lateral hip and posterior hip/pelvic pain History of Current Condition Pt reportedly has had a sequence of surgeries in [place], starting 8 yrs ago and hasn't been able to get back into condition since. Last 2 surgeries were SI locks/ fusions with pinnings R side Sep 2023, L side 12/2023. Has pain on both sides different than prior to surgery. Expected outcome was relief of pain with transition (most standing up). His complaints now are pain that wakes him up in the morning, lateral hip and lateral/posterior pelvic pain. LBP starts later in the day. Pt moved to [facility] Aug 2023. 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 Prior Treatments and Tests Post surgical rehab in [place] after each SI lock/ fusion surgeries, both inpt and outpt rehab. Treatment Goals Patient/Caregiver Goals Pt goal: - core and gluteal strengthening and balance training. Be able to lift from 30-45 lbs. - Sit for more than 10' due to back (tight hamstrings). - independent in HEP. Current Functional Impairments (Reported) Functional Limitations- ADL's Stationary bike 6x/week - 15'/ day. 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 PT-OP-C Subjective Start: 03/05/24 16:26 Freq: Status: Active Protocol: Document 07/07/24 11:19 LRN (Rec: 07/07/24 12:43 LRN [id number]) OP-PT Subjective Patient Comments Patient Comments States the nerve pain is very annoying. Sees Dr Morgan in 2 days. Had good workout last session and felt revived, but lately feeling more discomfort at night and wakes him 3-4 AM with cramps, may be due to too much stim. Having discomfort down the R lateral side of lower leg and foot. Goes up/down a 4 step/6' ladder 4-5x/day, can sit or stand 15 min to an hour if involved in something ( standing up to 2 hrs). Patient Questionnaires Lower Extremity Functional Scale LEFS Score 26 LEFS Impairment 60 to 79% Impaired (Score 17- 31) Oswestry Low Back Index Oswestry Score 48 Oswestry Impairment 40 to 59% Impaired (Score 40- 59) OP-PT Pain Assessment Location R leg Intensity 6 Scale Used Numeric (0 - 10) Anterior Franci ankles Intensity 3 Scale Used Numeric (0 - 10) Low back Intensity 7 Scale Used Numeric (0 - 10) PT-OP-H Neuro Start: 03/05/24 16:26 Freq: Status: Active Protocol: Document 04/14/24 13:47 LRN (Rec: 04/14/24 16:25 LRN [id number]) Sensation Evaluation Location Details Right Lower Leg Light Touch Impaired Comments Summary Comments Decreased sensation of R lower leg from the top of the leg brace distally and from briscoe to brace upright stay. PT-OP-J Posture/Palpation/Skin Start: 03/05/24 16:26 Freq: Status: Active Protocol: Document 03/06/24 11:18 LRN (Rec: 03/06/24 12:21 LRN [id number]) Posture Evaluation Position Standing Head/C-Spine Posture Forward Head T-Spine Posture Increased Kyphosis L-Spine Posture Flattened Shoulder Posture (R) Elevated Comments Posture Comments Head shifted left, R shoulder elevated, protruding R ACJ, very slight anterior pelvic tilt, wide stance. Palpation Assessment Location Low back Palpation Location L paraspinasl ~T6-T12 Palpation Findings Muscle Guarding PT-OP-K Range of Motion Start: 03/05/24 16:26 Freq: Status: Active Protocol: Document 07/07/24 11:19 LRN (Rec: 07/07/24 12:43 LRN [id number]) Hip Goniometric Range of Motion Hip Right Active Testing Position Supine Straight Leg Raise 70 Left Active Testing Position Supine Straight Leg Raise 80 Comments Hip replacement side. Cramping more in L side. PT-OP-M Strength Start: 03/05/24 16:26 Freq: Status: Active Protocol: Document 03/06/24 11:18 LRN (Rec: 03/06/24 12:21 LRN [id number]) Trunk Strength Trunk Manual Muscle Testing Core Stabilization Mild to moderate loss of core stability as noted with MMT of LE's (primarily with flex and rotation). Hip Strength Hip Manual Muscle Testing Right Abduction 4 Good Adduction 2- Poor- Comments Hip strength is 5/5 except as indicated above. Left Flexion (L2) 4+ Good+ Adduction 2 Poor External Rotation 3 Fair Internal Rotation 3 Fair Comments Hip strength is 5/5 except as indicated above. PT-OP-Q Treatments Start: 03/05/24 16:26 Freq: Status: Active Protocol: Document 07/07/24 11:19 LRN (Rec: 07/07/24 12:43 LRN [id number]) Cardio Equipment Recumbent Bicycle Duration (Minutes) 15 Resistance 6 (5 min)> 9 (11 min) Seat Position 8 Other good effort, PATRICK scale 13 somewhat Therapeutic Exercises Supine Exercises SLR Supine Exercise Name PSLR Side bilateral Comments PROM taken: 70 deg's bilterally hamstring stretch Supine Exercise Name from hooklying with ankle pumps on with knee flexion X 5 Side bilateral Reps/Minutes 60 seconds X 1 LLE, x2 RLE. hip flexor stretch Supine Exercise Name edge of elevated table Side bilateral Equipment Used *not able do home Reps/Minutes one minute each LE, f/b single leg nelda glut squeeze (5SH-10 reps) Comments L is tighter than R Neuro Re-Education Treatment Balance Activities corner balance Details tandem, EC: standing on foam and marching. Surface floor Equipment back to corner, chair front PRN contact needed Reps/Duration 15 min Comments *stationary- not timed stable *head turns- little sway, occasional shld contact wall at side *EC- Unable LOB back/lateral into wall recovery Self-Care/Home Management Treatment Activities Self-Care/Home Management Activities Issued HEP: In Corner balance ex's with chair in front: EC -standing on uneven surface and marching on level with arms by sides, tandem stance EO. PT-OP-T Assessment and Plan Start: 03/05/24 16:26 Freq: Status: Active Protocol: Document 07/07/24 11:19 LRN (Rec: 07/07/24 12:43 LRN [id number]) Physical Therapy Assessment Rehab Potential Rehabilitation Potential Good Evaluation Complexity Number of Personal Factors/Comorbidities 3 or More Number of Body Systems Impaired 4 or More Clinical Presentation at Evaluation Evolving Impairments Impairments Activity Tolerance,Balance, Gait,Pain,ROM,Strength, Transfers Goals Three Impairment Decreased functional strength for performing home activities of lifting. Impairment Pt goal: - core and gluteal strength and balance. Be able to lift from 30 to 45. - Can't sit for more than 10' due to back (tight hamstrings) . - independent in HEP. Short Term Goal (STG) Pt will be educated in proper body mechanics for DLS and Mtz to Safe Movement. 04/02/24: Pt training/ education in body mechanics for ADLs & Proper Posture for Mtz to Safe Movement. STG Duration 4 wks-04/03/24 (04/02/24: MET GOAL) Senior Care Goal (LTG) Pt will be able to tolerate lifting 30#-45# with modification of lifting technique for functional activities at home. 03/16/24: incorporated straight back hip hinge in mirror deadlift 20# (2-10# DB). 05/20/24: progressing 30#: 2- 15# DB deadlift good hip hinge straight back painfree. : 10#DB BUE deadlift no pain good mechanics. 06/23/24: Pt reporting moving 40# heating pellets from stack to handtruck and into his home. 07/02/24: GOAL MET: able to lift 25lb wts in each UE. LTG Duration 07/24/24 GOAL MET: 07/02/24 Two Impairment Decreased sitting tolerance due to pain Impairment Can't sit for more than 10' due to back. Short Term Goal (STG) Improve LE mobility (tight hamstrings) and if tolerated neural mobility. 03/16/24: added standing bottoms up active HS stretch ( hands on step, knee ext). 05/20/24: progressing increased HS mobility: PROM 100 deg R, 92 deg L, AROM 90 deg R, 86deg L 07/07/24: PSLR: 70 deg's R, 80 deg's L. STG Duration 4 wks-05/29/24 progressing (worse 07/07/24 more numbness LEtoday) Senior Care Goal (LTG) Pt will be able to improve functional sitting of 30-60' with modification of sitting or performing sitting mobility ex's to decrease pain. 04/09/2024 Patient reports sitting for one hour, but with increased ankle pain post, which decreased by 1/2 post manual therapy and and exercise. 04/27/24: Sitting in morning 10', in evening sit for 1 hr. 06/01/24: sitting early am sitting after wake up awaiting coffee 10 min before need stand, later am and later peak of day 4-430 takes Tylenol and Oxy to give relief. 06/18/24: slow progress: can sit approx 10 min drinking coffee have to stand up. 07/02/24: PRogressing: Able to sit 15 min before needs to stand due to discomfort. So elevates work station and continues work then when needed stops and dose stretching and helps provide relief then returns. 07/07/24: Sitting tolerance is 15'-60', standing tolerance 1-2 hrs before having to sit. LTG Duration 07/24/24 (07/07/24: MET GOAL) One Impairment Lacks appropriate self care HEP Impairment Pt goal: - core and gluteal strength and balance. Be able to lift from 30 to 45. - Can't sit for more than 10' due to back (tight hamstrings) . - independent in HEP. Short Term Goal (STG) Will be instructed in HEP for balance and nelda core strengthening ex's to support therapy services provided in clinic. 03/09/24: NAM 50/56, Radha 14/16. 03/16/24: reviewed deadbug, bridge /c hip abd #3 TB, resisted lateral stepping, repeated step up- L>R glut med /pirifor weakness. 06/01/24: HEP stationary bike, stretching: down dog, bridge, lifts 30# more stretching , child's pose, HS stretch supine, squat<> stand into over head lift 10# DB tiring no added pain 5 reps. lift increased 20# each UE. 06/18/24: NBOS stride stance uneven surface standing pull downs, sit>stand into over head press 5# DB BUE. 07/02/24: initiated corner balance tandem and SLS, recheck to add to HEP next tx. 07/07/24: HEP of corner standing balance ex's (EC standing on foam, and marching on level), tandem stance EO. STG Duration 4 wks-05/29/24 progressing 07/07/24 Senior Care Goal (LTG) Pt will be independent with HEP of general LE strengthening and hip ROM ex's with the goal of improving pt 's perception of safety with gait. 03/16/24: progressing:bridge /c hip abd #3 TB, resisted lateral stepping, repeated step up- L>R glut med/pirifor weakness. 04/07/2024 Seated hip abd with band added to HEP 04/09/2024 Added stretching HS /c AP, and AROM knee flexion to HEP 04/16/24: HEP: Hip strengthening: hip AB/AD (sup & sidelie), Clamshell/Reverse clamshell, SLR, Bridge. 05/20/24: adde oblique isometric paloff press 06/01/24: initiated prone LE ext , reviewed doorway hip flexor stretch. 06/18/24: NBOS stride stance uneven surface standing pull downs, sit>stand into over head press 5# DB BUE. LTG Duration 12 wks-07/24/24 progressing 06/18/24 Assessment Summary Assessment Pt is a 74 yo male who is s/p franci SI fusion/lock (R-10/19, L -01/18) with pain in franci hips worse first in AM; franci LBP ( sacral level) worse in pm, bilateral ankle pain, franci foot neuropathy, R drop foot, decr 'd hip mobility, weakness of the hips/core. He recently has had sporatic therapy attendance due to scheduling diffulties. Today, he c/o more numbness and tingling in his L lower leg and an increase in muscle cramps at night, that may be associated to an adjustment that was ( also recently) given to his lumbar stimulator. Today is functional questionnaire scores reflect his recent worsening of symptoms mildly with JAYMIE (minimal change with oucome of 40-50% impaired, and notable with LEFS of 60-79% impaired as previously was 40- 59% impaired). His pain is a little less at his ankles, rated 2-3/10 (was 4/10). LBP is worse at 7/10 (was 5/10) and R lower leg pain is the same. He has achieved base line pain a month ago, but itoday reports experiencing more numbness/tingling and discomfort. He has though been able to overall improve his tolerance to sitting and standing as today he reports has achieved his goal of being able to sit or stand greater than 30 minutes before he has to change postion due to pain. He has reported sometimes can sit or stand and hour or more if involved in activity. The pt has been being progressed on balance ex's to improve his safety with gait and his perception of safety with gait; therefore as the pt continues to show improvement , although rather slow, I would recommend continuation of therapy to work towards improving the pt's standing static and dynamic balance and work to improve his safety with gait. We will also work on progressing his core/hip/ general LE strength and progress his HEP as appropriate. Physical Therapy Plan Frequency and Duration Frequency of Treatment 2x/Week Duration of treatment (weeks) 12 Plan of Care Start Date 07/07/24 Plan of Care End Date 10/02/24 Therapeutic Interventions Therapeutic Interventions Balance Training,Gait Training ,Home Exercise Program,Manual Therapy,Neuromuscular Re- education,Self-Care/Home Management,Soft Tissue Mobilization,Therapeutic Activities,Therapeutic Exercises Modalities Cold Pack/Ice Massage Next Visit Focus/Plan Next Note Type Treatment Note Next Visit Plan See Precautions. KX modifier started 07/02. Next: Work towards placement on HEP for general LE strengthening (hip L flex/ER/ IR, franci AD, knee/ankle) and ex 's for pt's perception of safety with gait. Recheck for pt causing nerve irritation and modify as needed: HS stretch, hip flexor stretch, prone LE ext and uneven surface semi tandem UE ext. Add: Trial lunges near rail for progression strength and bal uneven surface. Progress: Functional balance training, sport cord, uneven surface walking, and as tolerated Core strengthening ( NO lumbar rot/SB due to surgical hx). POC: Decrease pain franci LB/ hips & Core/hip stabilization/ strengthening; painfree hip mobility ex's; LB/hip ST; transfer training (hip hinging ); FOCUS ON: SELF pain mgmt; ADLs; improve balance.
--- NOTE | 2024-07-07 17:05 | PT.OTN ---
Current Diagnoses Other chronic pain (07/07/24) Low back pain, unspecified (07/07/24) Neuralgia and neuritis, unspecified (07/07/24) Other specified postprocedural states (07/07/24) Physical Therapy Treatment Note PT-OP-A Visit Information Start: 03/05/24 16:26 Freq: Status: Active Protocol: Document 07/07/24 11:19 LRN (Rec: 07/07/24 12:43 LRN [id number]) Out-Patient Physical Therapy Visit Information Visit Information Visit Type Progress Note Visit Start Time 11:18 Visit Stop Time 12:02 Visit Number Evaluation Information Evaluation Date 03/06/24 Precautions Precautions TAPE ALLERGY. PMH: Anterior L YANELY-07/20, No Bending Lifting Twisting (told after SI lock surgery - R 10/04/2023, L 01/18) - told recover time after surgery 6 months by different physician. PT-OP-B Current Condition Start: 03/05/24 16:26 Freq: Status: Active Protocol: Document 03/06/24 11:18 LRN (Rec: 03/06/24 12:21 LRN [id number]) Current Condition History of Current Condition Onset Date 10/2023 Current Complaints SI pain, lateral hip and posterior hip/pelvic pain History of Current Condition Pt reportedly has had a sequence of surgeries in [place], starting 8 yrs ago and hasn't been able to get back into condition since. Last 2 surgeries were SI locks/ fusions with pinnings R side Sep 2023, L side 12/2023. Has pain on both sides different than prior to surgery. Expected outcome was relief of pain with transition (most standing up). His complaints now are pain that wakes him up in the morning, lateral hip and lateral/posterior pelvic pain. LBP starts later in the day. Pt moved to [facility], [place] Aug 2023. 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 Prior Treatments and Tests Post surgical rehab in [place] after each SI lock/ fusion surgeries, both inpt and outpt rehab. Treatment Goals Patient/Caregiver Goals Pt goal: - core and gluteal strengthening and balance training. Be able to lift from 30-45 lbs. - Sit for more than 10' due to back (tight hamstrings). - independent in HEP. Current Functional Impairments (Reported) Functional Limitations- ADL's Stationary bike 6x/week - 15'/ day. 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 PT-OP-C Subjective Start: 03/05/24 16:26 Freq: Status: Active Protocol: Document 07/07/24 11:19 LRN (Rec: 07/07/24 12:43 LRN [id number]) OP-PT Subjective Patient Comments Patient Comments States the nerve pain is very annoying. Sees Dr Morgan in 2 days. Had good workout last session and felt revived, but lately feeling more discomfort at night and wakes him 3-4 AM with cramps, may be due to too much stim. Having discomfort down the R lateral side of lower leg and foot. Goes up/down a 4 step/6' ladder 4-5x/day, can sit or stand 15 min to an hour if involved in something ( standing up to 2 hrs). Patient Questionnaires Lower Extremity Functional Scale LEFS Score 26 LEFS Impairment 60 to 79% Impaired (Score 17- 31) Oswestry Low Back Index Oswestry Score 48 Oswestry Impairment 40 to 59% Impaired (Score 40- 59) OP-PT Pain Assessment Location R leg Intensity 6 Scale Used Numeric (0 - 10) Anterior Franci ankles Intensity 3 Scale Used Numeric (0 - 10) Low back Intensity 7 Scale Used Numeric (0 - 10) PT-OP-H Neuro Start: 03/05/24 16:26 Freq: Status: Active Protocol: Document 04/14/24 13:47 LRN (Rec: 04/14/24 16:25 LRN [id number]) Sensation Evaluation Location Details Right Lower Leg Light Touch Impaired Comments Summary Comments Decreased sensation of R lower leg from the top of the leg brace distally and from briscoe to brace upright stay. PT-OP-J Posture/Palpation/Skin Start: 03/05/24 16:26 Freq: Status: Active Protocol: Document 03/06/24 11:18 LRN (Rec: 03/06/24 12:21 LRN [id number]) Posture Evaluation Position Standing Head/C-Spine Posture Forward Head T-Spine Posture Increased Kyphosis L-Spine Posture Flattened Shoulder Posture (R) Elevated Comments Posture Comments Head shifted left, R shoulder elevated, protruding R ACJ, very slight anterior pelvic tilt, wide stance. Palpation Assessment Location Low back Palpation Location L paraspinasl ~T6-T12 Palpation Findings Muscle Guarding PT-OP-K Range of Motion Start: 03/05/24 16:26 Freq: Status: Active Protocol: Document 07/07/24 11:19 LRN (Rec: 07/07/24 12:43 LRN [id number]) Hip Goniometric Range of Motion Hip Right Active Testing Position Supine Straight Leg Raise 70 Left Active Testing Position Supine Straight Leg Raise 80 Comments Hip replacement side. Cramping more in L side. PT-OP-M Strength Start: 03/05/24 16:26 Freq: Status: Active Protocol: Document 03/06/24 11:18 LRN (Rec: 03/06/24 12:21 LRN [id number]) Trunk Strength Trunk Manual Muscle Testing Core Stabilization Mild to moderate loss of core stability as noted with MMT of LE's (primarily with flex and rotation). Hip Strength Hip Manual Muscle Testing Right Abduction 4 Good Adduction 2- Poor- Comments Hip strength is 5/5 except as indicated above. Left Flexion (L2) 4+ Good+ Adduction 2 Poor External Rotation 3 Fair Internal Rotation 3 Fair Comments Hip strength is 5/5 except as indicated above. PT-OP-Q Treatments Start: 03/05/24 16:26 Freq: Status: Active Protocol: Document 07/07/24 11:19 LRN (Rec: 07/07/24 12:43 LRN [id number]) Cardio Equipment Recumbent Bicycle Duration (Minutes) 15 Resistance 6 (5 min)> 9 (11 min) Seat Position 8 Other good effort, PATRICK scale 13 somewhat Therapeutic Exercises Supine Exercises SLR Supine Exercise Name PSLR Side bilateral Comments PROM taken: 70 deg's bilterally hamstring stretch Supine Exercise Name from hooklying with ankle pumps on with knee flexion X 5 Side bilateral Reps/Minutes 60 seconds X 1 LLE, x2 RLE. hip flexor stretch Supine Exercise Name edge of elevated table Side bilateral Equipment Used *not able do home Reps/Minutes one minute each LE, f/b single leg nelda glut squeeze (5SH-10 reps) Comments L is tighter than R Neuro Re-Education Treatment Balance Activities corner balance Details tandem, EC: standing on foam and marching. Surface floor Equipment back to corner, chair front PRN contact needed Reps/Duration 15 min Comments *stationary- not timed stable *head turns- little sway, occasional shld contact wall at side *EC- Unable LOB back/lateral into wall recovery Self-Care/Home Management Treatment Activities Self-Care/Home Management Activities Issued HEP: In Corner balance ex's with chair in front: EC -standing on uneven surface and marching on level with arms by sides, tandem stance EO. PT-OP-T Assessment and Plan Start: 03/05/24 16:26 Freq: Status: Active Protocol: Document 07/07/24 11:19 LRN (Rec: 07/07/24 12:43 LRN [id number]) Physical Therapy Assessment Rehab Potential Rehabilitation Potential Good Evaluation Complexity Number of Personal Factors/Comorbidities 3 or More Number of Body Systems Impaired 4 or More Clinical Presentation at Evaluation Evolving Impairments Impairments Activity Tolerance,Balance, Gait,Pain,ROM,Strength, Transfers Goals Three Impairment Decreased functional strength for performing home activities of lifting. Impairment Pt goal: - core and gluteal strength and balance. Be able to lift from 30 to 45. - Can't sit for more than 10' due to back (tight hamstrings) . - independent in HEP. Short Term Goal (STG) Pt will be educated in proper body mechanics for DLS and Mtz to Safe Movement. 04/02/24: Pt training/ education in body mechanics for ADLs & Proper Posture for Mtz to Safe Movement. STG Duration 4 wks-04/03/24 (04/02/24: MET GOAL) Prison Goal (LTG) Pt will be able to tolerate lifting 30#-45# with modification of lifting technique for functional activities at home. 03/16/24: incorporated straight back hip hinge in mirror deadlift 20# (2-10# DB). 05/20/24: progressing 30#: 2- 15# DB deadlift good hip hinge straight back painfree. : 10#DB BUE deadlift no pain good mechanics. 06/23/24: Pt reporting moving 40# heating pellets from stack to handtruck and into his home. 07/02/24: GOAL MET: able to lift 25lb wts in each UE. LTG Duration 07/24/24 GOAL MET: 07/02/24 Two Impairment Decreased sitting tolerance due to pain Impairment Can't sit for more than 10' due to back. Short Term Goal (STG) Improve LE mobility (tight hamstrings) and if tolerated neural mobility. 03/16/24: added standing bottoms up active HS stretch ( hands on step, knee ext). 05/20/24: progressing increased HS mobility: PROM 100 deg R, 92 deg L, AROM 90 deg R, 86deg L 07/07/24: PSLR: 70 deg's R, 80 deg's L. STG Duration 08/21/24 progressing 05/20/24 (worse 07/07/24 more numbness LEtoday) Director Retirement Goal (LTG) Pt will be able to improve functional sitting of 30-60' with modification of sitting or performing sitting mobility ex's to decrease pain. 04/09/2024 Patient reports sitting for one hour, but with increased ankle pain post, which decreased by 1/2 post manual therapy and and exercise. 04/27/24: Sitting in morning 10', in evening sit for 1 hr. 06/01/24: sitting early am sitting after wake up awaiting coffee 10 min before need stand, later am and later peak of day 4-430 takes Tylenol and Oxy to give relief. 06/18/24: slow progress: can sit approx 10 min drinking coffee have to stand up. 07/02/24: PRogressing: Able to sit 15 min before needs to stand due to discomfort. So elevates work station and continues work then when needed stops and dose stretching and helps provide relief then returns. 07/07/24: Sitting tolerance is 15'-60', standing tolerance 1-2 hrs before having to sit. LTG Duration 07/24/24 (07/07/24: MET GOAL) One Impairment Lacks appropriate self care HEP Impairment Pt goal: - core and gluteal strength and balance. Be able to lift from 30 to 45. - Can't sit for more than 10' due to back (tight hamstrings) . - independent in HEP. Short Term Goal (STG) Will be instructed in HEP for balance and nelda core strengthening ex's to support therapy services provided in clinic. 03/09/24: NAM 50/56, Radha 14/16. 03/16/24: reviewed deadbug, bridge /c hip abd #3 TB, resisted lateral stepping, repeated step up- L>R glut med /pirifor weakness. 06/01/24: HEP stationary bike, stretching: down dog, bridge, lifts 30# more stretching , child's pose, HS stretch supine, squat<> stand into over head lift 10# DB tiring no added pain 5 reps. lift increased 20# each UE. 06/18/24: NBOS stride stance uneven surface standing pull downs, sit>stand into over head press 5# DB BUE. 07/02/24: initiated corner balance tandem and SLS, recheck to add to HEP next tx. 07/07/24: HEP of corner standing balance ex's (EC standing on foam, and marching on level), tandem stance EO. STG Duration 08/21/24 progressing Director Retirement Goal (LTG) Pt will be independent with HEP of general LE strengthening and hip ROM ex's with the goal of improving pt 's perception of safety with gait. 03/16/24: progressing:bridge /c hip abd #3 TB, resisted lateral stepping, repeated step up- L>R glut med/pirifor weakness. 04/07/2024 Seated hip abd with band added to HEP 04/09/2024 Added stretching HS /c AP, and AROM knee flexion to HEP 04/16/24: HEP: Hip strengthening: hip AB/AD (sup & sidelie), Clamshell/Reverse clamshell, SLR, Bridge. 05/20/24: adde oblique isometric paloff press 06/01/24: initiated prone LE ext , reviewed doorway hip flexor stretch. 06/18/24: NBOS stride stance uneven surface standing pull downs, sit>stand into over head press 5# DB BUE. LTG Duration 10/02/24 progressing 06/18/24 Assessment Summary Assessment Pt is a 74 yo male who is s/p franci SI fusion/lock (R-10/19, L -01/18) with pain in franci hips worse first in AM; franci LBP ( sacral level) worse in pm, bilateral ankle pain, franci foot neuropathy, R drop foot, decr 'd hip mobility, weakness of the hips/core. He recently has had sporatic therapy attendance due to scheduling diffulties. Today, he c/o more numbness and tingling in his L lower leg and an increase in muscle cramps at night, that may be associated to an adjustment that was ( also recently) given to his lumbar stimulator. Today is functional questionnaire scores reflect his recent worsening of symptoms mildly with JAYMIE (minimal change with oucome of 40-50% impaired, and notable with LEFS of 60-79% impaired as previously was 40- 59% impaired). His pain is a little less at his ankles, rated 2-3/10 (was 4/10). LBP is worse at 7/10 (was 5/10) and R lower leg pain is the same. He has achieved base line pain a month ago, but itoday reports experiencing more numbness/tingling and discomfort. He has though been able to overall improve his tolerance to sitting and standing as today he reports has achieved his goal of being able to sit or stand greater than 30 minutes before he has to change postion due to pain. He has reported sometimes can sit or stand and hour or more if involved in activity. The pt has been being progressed on balance ex's to improve his safety with gait and his perception of safety with gait; therefore as the pt continues to show improvement , although rather slow, I would recommend continuation of therapy to work towards improving the pt's standing static and dynamic balance and work to improve his safety with gait. We will also work on progressing his core/hip/ general LE strength and progress his HEP as appropriate. Physical Therapy Plan Frequency and Duration Frequency of Treatment 2x/Week Duration of treatment (weeks) 12 Plan of Care Start Date 07/07/24 Plan of Care End Date 10/02/24 Therapeutic Interventions Therapeutic Interventions Balance Training,Gait Training ,Home Exercise Program,Manual Therapy,Neuromuscular Re- education,Self-Care/Home Management,Soft Tissue Mobilization,Therapeutic Activities,Therapeutic Exercises Modalities Cold Pack/Ice Massage Next Visit Focus/Plan Next Note Type Treatment Note Next Visit Plan See Precautions. KX modifier started 07/02. Next: Work towards placement on HEP for general LE strengthening (hip L flex/ER/ IR, franci AD, knee/ankle) and ex 's for pt's perception of safety with gait. Recheck for pt causing nerve irritation and modify as needed: HS stretch, hip flexor stretch, prone LE ext and uneven surface semi tandem UE ext. Add: Trial lunges near rail for progression strength and bal uneven surface. Progress: Functional balance training, sport cord, uneven surface walking, and as tolerated Core strengthening ( NO lumbar rot/SB due to surgical hx). POC: Decrease pain franci LB/ hips & Core/hip stabilization/ strengthening; painfree hip mobility ex's; LB/hip ST; transfer training (hip hinging ); FOCUS ON: SELF pain mgmt; ADLs; improve balance.
--- NOTE | 2024-07-24 16:58 | PT.OTN ---
Current Diagnoses Other chronic pain (07/24/24) Low back pain, unspecified (07/24/24) Neuralgia and neuritis, unspecified (07/24/24) Other specified postprocedural states (07/24/24) Physical Therapy Treatment Note PT-OP-A Visit Information Start: 03/05/24 16:26 Freq: Status: Active Protocol: Document 07/24/24 13:50 LRN (Rec: 07/24/24 14:37 LRN [id number]) Out-Patient Physical Therapy Visit Information Visit Information Visit Type Treatment Note Visit Start Time 13:50 Visit Stop Time 14:36 Visit Number KX 22/99 Evaluation Information Evaluation Date 03/06/24 Precautions Precautions TAPE ALLERGY. PMH: Anterior L YANELY-07/20, No Bending Lifting Twisting (told after SI lock surgery - R 10/04/2023, L 01/18) - told recover time after surgery 6 months by different physician. PT-OP-B Current Condition Start: 03/05/24 16:26 Freq: Status: Active Protocol: Document 03/06/24 11:18 LRN (Rec: 03/06/24 12:21 LRN [id number]) Current Condition History of Current Condition Onset Date 10/2023 Current Complaints SI pain, lateral hip and posterior hip/pelvic pain History of Current Condition Pt reportedly has had a sequence of surgeries in [place], starting 8 yrs ago and hasn't been able to get back into condition since. Last 2 surgeries were SI locks/ fusions with pinnings R side Sep 2023, L side 12/2023. Has pain on both sides different than prior to surgery. Expected outcome was relief of pain with transition (most standing up). His complaints now are pain that wakes him up in the morning, lateral hip and lateral/posterior pelvic pain. LBP starts later in the day. Pt moved to [facility] Aug 2023. 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 Treatment Goals Patient/Caregiver Goals Pt goal: - core and gluteal strengthening and balance training. Be able to lift from 30-45 lbs. - Sit for more than 10' due to back (tight hamstrings). - independent in HEP. Current Functional Impairments (Reported) Functional Limitations- ADL's Stationary bike 6x/week - 15'/ day. Yoga Personal Factors Other Personal Factors That May Effect Tape allergy, Therapy/Recovery Neuropathy of Freeman ankles, 4 lower lumbar decompression surgery 2016, AFO on RLE due to drop foot, weakness of LE's (L>R). PT-OP-C Subjective Start: 03/05/24 16:26 Freq: Status: Active Protocol: Document 07/24/24 13:50 LRN (Rec: 07/24/24 14:37 LRN [id number]) OP-PT Subjective Patient Comments Patient Comments States his work is tapering down so he has more time to concentrate on PT. 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 Had LE neuropathy pain, 2 Tylenol and 5 mg of Oxicodone helps the pain for 2 hrs. IF doesn't exercise, his back and leg pain is worse . 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 States his LE ms cramps increase with increased intensity of nerve stimulator . Stimulator was increased to decrease the pain. States he is going to sleep with it off . PT-OP-H Neuro Start: 03/05/24 16:26 Freq: Status: Active Protocol: Document 04/14/24 13:47 LRN (Rec: 04/14/24 16:25 LRN [id number]) Sensation Evaluation Location Details Right Lower Leg Light Touch Impaired Comments Summary Comments Decreased sensation of R lower leg from the top of the leg brace distally and from briscoe to brace upright stay. PT-OP-J Posture/Palpation/Skin Start: 03/05/24 16:26 Freq: Status: Active Protocol: Document 03/06/24 11:18 LRN (Rec: 03/06/24 12:21 LRN [id number]) Posture Evaluation Position Standing Head/C-Spine Posture Forward Head T-Spine Posture Increased Kyphosis L-Spine Posture Flattened Shoulder Posture (R) Elevated Comments Posture Comments Head shifted left, R shoulder elevated, protruding R ACJ, very slight anterior pelvic tilt, wide stance. Palpation Assessment Location Low back Palpation Location L paraspinasl ~T6-T12 Palpation Findings Muscle Guarding PT-OP-K Range of Motion Start: 03/05/24 16:26 Freq: Status: Active Protocol: Document 07/07/24 11:19 LRN (Rec: 07/07/24 12:43 LRN [id number]) Hip Goniometric Range of Motion Hip Right Active Testing Position Supine Straight Leg Raise 70 Left Active Testing Position Supine Straight Leg Raise 80 Comments Hip replacement side. Cramping more in L side. PT-OP-M Strength Start: 03/05/24 16:26 Freq: Status: Active Protocol: Document 03/06/24 11:18 LRN (Rec: 03/06/24 12:21 LRN [id number]) Trunk Strength Trunk Manual Muscle Testing Core Stabilization Mild to moderate loss of core stability as noted with MMT of LE's (primarily with flex and rotation). Hip Strength Hip Manual Muscle Testing Right Abduction 4 Good Adduction 2- Poor- Comments Hip strength is 5/5 except as indicated above. Left Flexion (L2) 4+ Good+ Adduction 2 Poor External Rotation 3 Fair Internal Rotation 3 Fair Comments Hip strength is 5/5 except as indicated above. PT-OP-Q Treatments Start: 03/05/24 16:26 Freq: Status: Active Protocol: Document 07/24/24 13:50 LRN (Rec: 07/24/24 14:37 LRN [id number]) Cardio Equipment Recumbent Bicycle Duration (Minutes) 10 Resistance 8 Seat Position 8 Other good effort, PATRICK scale 13 somewhat Therapeutic Exercises Supine Exercises BKFO Supine Exercise Name Freeman and only L LE Equipment Used Lev 2 TB Reps/Minutes 10x each SLR Supine Exercise Name SLR lift and Asst'd SLR from 30-45 deg's. Side left Reps/Minutes 5x, 10 x 3 respectively Sidelying Exercises Hip AB Side left Reps/Minutes 10 x 3 Clamshell Sidelying Exercise Name R sidelie Side left Reps/Minutes 10 x Hip AD Sidelying Exercise Name L sidelie Side left Reps/Minutes to tolerance Self-Care/Home Management Treatment Education Other Education Discussed and I/S pt in cold/ hot treatment for back alternating using sauna and cold air or shower. Activities Self-Care/Home Management Activities Issued HEP: Verbal instruction to do strengthening L hip: Supine: freeman BKFO w/TB, hip flex with assist of belt. Sidelie: hip AB/AD. Sitting: hip IR/ER. PT-OP-T Assessment and Plan Start: 03/05/24 16:26 Freq: Status: Active Protocol: Document 07/24/24 13:50 LRN (Rec: 07/24/24 14:37 LRN [id number]) Physical Therapy Assessment Assessment Summary Assessment Pt is a 74 yo male who is s/p freeman SI fusion/lock (R-10/19, L -01/18) with pain in freeman hips worse first in AM; freeman LBP ( sacral level) worse in pm, bilateral ankle pain, freeman foot neuropathy, R drop foot, decr 'd hip mobility, weakness of the hips/core. Today pt reports he thinks he will be able to attend more regularly now. He c/o more numbness and tingling in his L lower leg and an increase in muscle cramps at night, that may be associated to an adjustment that was (also recently) given to his lumbar stimulator. He appears to be doing strenous activities at work, but he insists if he doesn't work out that his cramps are worse. He tolerated ex well with with assist for hip flexion and has been warned not to ex into pain or to stop when movement become difficult, because the pt seems to overdo with his exercises. Th Physical Therapy Plan Frequency and Duration Frequency of Treatment 2x/Week Duration of treatment (weeks) 12 Plan of Care Start Date 07/07/24 Plan of Care End Date 10/02/24 Next Visit Focus/Plan Next Note Type Treatment Note Next Visit Plan See Precautions. Use KX modifier. Next: Issue hot/cold handout for nighttime pain. Work towards placement on HEP. Review general LE strengthening (hip L flex/ER/ IR, freeman AD). Add strengthening of knee/ankle and ex's for pt's perception of safety with gait. Monitor for pt causing nerve irritation and modify as needed: HS stretch, hip flexor stretch, prone LE ext and uneven surface semi tandem UE ext. Add: Trial lunges near rail for progression strength and bal uneven surface. Progress: Functional balance training, sport cord, uneven surface walking, and as tolerated Core strengthening ( NO lumbar rot/SB due to surgical hx). POC: Decrease pain freeman LB/ hips & Core/hip stabilization/ strengthening; painfree hip mobility ex's; LB/hip ST; transfer training (hip hinging ); FOCUS ON: SELF pain mgmt; ADLs; improve balance.
--- NOTE | 2024-07-30 09:44 | PT.OTN ---
Current Diagnoses Other chronic pain (07/30/24) Low back pain, unspecified (07/30/24) Neuralgia and neuritis, unspecified (07/30/24) Other specified postprocedural states (07/30/24) Physical Therapy Treatment Note PT-OP-A Visit Information Start: 03/05/24 16:26 Freq: Status: Active Protocol: Document 07/30/24 09:00 SP (Rec: 07/30/24 09:46 SP [id number]) Out-Patient Physical Therapy Visit Information Visit Information Visit Type Treatment Note Visit Start Time 09:00 Visit Stop Time 09:44 Visit Number KX Number of PROCESS CONTROL SPECIALIST Visits 1 Evaluation Information Evaluation Date 03/06/24 Precautions Precautions TAPE ALLERGY. PMH: Anterior L YANELY-07/20, No Bending Lifting Twisting (told after SI lock surgery - R 10/04/2023, L 01/18) - told recover time after surgery 6 months by different physician. PT-OP-B Current Condition Start: 03/05/24 16:26 Freq: Status: Active Protocol: Document 03/06/24 11:18 LRN (Rec: 03/06/24 12:21 LRN [id number]) Current Condition History of Current Condition Onset Date 10/2023 Current Complaints SI pain, lateral hip and posterior hip/pelvic pain History of Current Condition Pt reportedly has had a sequence of surgeries in [place], starting 8 yrs ago and hasn't been able to get back into condition since. Last 2 surgeries were SI locks/ fusions with pinnings R side Sep 2023, L side 12/2023. Has pain on both sides different than prior to surgery. Expected outcome was relief of pain with transition (most standing up). His complaints now are pain that wakes him up in the morning, lateral hip and lateral/posterior pelvic pain. LBP starts later in the day. Pt moved to [facility] Aug 2023. 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 Prior Treatments and Tests Post surgical rehab in [place] after each SI lock/ fusion surgeries, both inpt and outpt rehab. Treatment Goals Patient/Caregiver Goals Pt goal: - core and gluteal strengthening and balance training. Be able to lift from 30-45 lbs. - Sit for more than 10' due to back (tight hamstrings). - independent in HEP. Current Functional Impairments (Reported) Functional Limitations- ADL's Stationary bike 6x/week - 15'/ day. 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 PT-OP-C Subjective Start: 03/05/24 16:26 Freq: Status: Active Protocol: Document 07/30/24 09:00 SP (Rec: 07/30/24 09:46 SP [id number]) OP-PT Subjective Patient Comments Patient Comments Pt reports has been having more pain into R>L leg and riding the bike provided a great nerve glide for relief. He reports has been having pain at night, called the [facility] and was told turn off 8pm and back on 4-6 am and see how feels. PT-OP-H Neuro Start: 03/05/24 16:26 Freq: Status: Active Protocol: Document 04/14/24 13:47 LRN (Rec: 04/14/24 16:25 LRN [id number]) Sensation Evaluation Location Details Right Lower Leg Light Touch Impaired Comments Summary Comments Decreased sensation of R lower leg from the top of the leg brace distally and from briscoe to brace upright stay. PT-OP-J Posture/Palpation/Skin Start: 03/05/24 16:26 Freq: Status: Active Protocol: Document 03/06/24 11:18 LRN (Rec: 03/06/24 12:21 LRN [id number]) Posture Evaluation Position Standing Head/C-Spine Posture Forward Head T-Spine Posture Increased Kyphosis L-Spine Posture Flattened Shoulder Posture (R) Elevated Comments Posture Comments Head shifted left, R shoulder elevated, protruding R ACJ, very slight anterior pelvic tilt, wide stance. Palpation Assessment Location Low back Palpation Location L paraspinasl ~T6-T12 Palpation Findings Muscle Guarding PT-OP-K Range of Motion Start: 03/05/24 16:26 Freq: Status: Active Protocol: Document 07/07/24 11:19 LRN (Rec: 07/07/24 12:43 LRN [id number]) Hip Goniometric Range of Motion Hip Right Active Testing Position Supine Straight Leg Raise 70 Left Active Testing Position Supine Straight Leg Raise 80 Comments Hip replacement side. Cramping more in L side. PT-OP-M Strength Start: 03/05/24 16:26 Freq: Status: Active Protocol: Document 03/06/24 11:18 LRN (Rec: 03/06/24 12:21 LRN [id number]) Trunk Strength Trunk Manual Muscle Testing Core Stabilization Mild to moderate loss of core stability as noted with MMT of LE's (primarily with flex and rotation). Hip Strength Hip Manual Muscle Testing Right Abduction 4 Good Adduction 2- Poor- Comments Hip strength is 5/5 except as indicated above. Left Flexion (L2) 4+ Good+ Adduction 2 Poor External Rotation 3 Fair Internal Rotation 3 Fair Comments Hip strength is 5/5 except as indicated above. PT-OP-Q Treatments Start: 03/05/24 16:26 Freq: Status: Active Protocol: Document 07/30/24 09:00 SP (Rec: 07/30/24 09:46 SP [id number]) Cardio Equipment Recumbent Bicycle Duration (Minutes) 10 Resistance 8 Seat Position 8 Other good effort, PATRICK scale 13 somewhat Therapeutic Exercises Supine Exercises BKFO Supine Exercise Name Franci and only L LE Equipment Used Lev 2 TB Reps/Minutes 10x each Comments cued slower pacing SLR Supine Exercise Name SLR lift and Asst'd SLR from 30-45 deg's. Side left Equipment Used strap on foot support light as needed Reps/Minutes 2x 10, 5 reps Comments good hip flexor, TFL tiring Sidelying Exercises Hip AB Sidelying Exercise Name R sidelie Side left Resistance AROM Reps/Minutes 10 x 3 Comments cued stacked on side alignment Clamshell Sidelying Exercise Name R sidelie Side left Reps/Minutes 10 x 3 Comments cued slower pacing /c TA fac on side, no rolling back Hip AD Sidelying Exercise Name L sidelie Side right Reps/Minutes to tolerance Sitting Exercises LAQ Sitting Exercise Name added to HEP /c HO Side bilateral Resistance Tb #2 Reps/Minutes 2x10 each Comments cued set up under 1 foot over ankle of other- L quad weak tiring ankle strengthening Sitting Exercise Name R: PF/eccentric DF TB #2/ IV AROM & toe extension AROM, L PF/DF/IV/EV Side bilateral Resistance Tb #2 teal Equipment Used added to HEP /c HO Reps/Minutes x10 each Comments cued slow eccentric pacing, Unable perform R EV/ DF PT-OP-T Assessment and Plan Start: 03/05/24 16:26 Freq: Status: Active Protocol: Document 07/30/24 09:00 SP (Rec: 07/30/24 09:46 SP [id number]) Physical Therapy Assessment Goals Three Impairment Decreased functional strength for performing home activities of lifting. Impairment Pt goal: - core and gluteal strength and balance. Be able to lift from 30 to 45. - Can't sit for more than 10' due to back (tight hamstrings) . - independent in HEP. Short Term Goal (STG) Pt will be educated in proper body mechanics for DLS and Mtz to Safe Movement. 04/02/24: Pt training/ education in body mechanics for ADLs & Proper Posture for Mtz to Safe Movement. STG Duration 4 wks-04/03/24 (04/02/24: MET GOAL) Board Turner Goal (LTG) Pt will be able to tolerate lifting 30#-45# with modification of lifting technique for functional activities at home. 03/16/24: incorporated straight back hip hinge in mirror deadlift 20# (2-10# DB). 05/20/24: progressing 30#: 2- 15# DB deadlift good hip hinge straight back painfree. : 10#DB BUE deadlift no pain good mechanics. 06/23/24: Pt reporting moving 40# heating pellets from stack to handtruck and into his home. 07/02/24: GOAL MET: able to lift 25lb wts in each UE. LTG Duration 07/24/24 GOAL MET: 07/02/24 Two Impairment Decreased sitting tolerance due to pain Impairment Can't sit for more than 10' due to back. Short Term Goal (STG) Improve LE mobility (tight hamstrings) and if tolerated neural mobility. 03/16/24: added standing bottoms up active HS stretch ( hands on step, knee ext). 05/20/24: progressing increased HS mobility: PROM 100 deg R, 92 deg L, AROM 90 deg R, 86deg L 07/07/24: PSLR: 70 deg's R, 80 deg's L. STG Duration 08/21/24 progressing 05/20/24 (worse 07/07/24 more numbness LEtoday) Board Turner Goal (LTG) Pt will be able to improve functional sitting of 30-60' with modification of sitting or performing sitting mobility ex's to decrease pain. 04/09/2024 Patient reports sitting for one hour, but with increased ankle pain post, which decreased by 1/2 post manual therapy and and exercise. 04/27/24: Sitting in morning 10', in evening sit for 1 hr. 06/01/24: sitting early am sitting after wake up awaiting coffee 10 min before need stand, later am and later peak of day 4-430 takes Tylenol and Oxy to give relief. 06/18/24: slow progress: can sit approx 10 min drinking coffee have to stand up. 07/02/24: PRogressing: Able to sit 15 min before needs to stand due to discomfort. So elevates work station and continues work then when needed stops and dose stretching and helps provide relief then returns. 07/07/24: Sitting tolerance is 15'-60', standing tolerance 1-2 hrs before having to sit. LTG Duration 07/24/24 (07/07/24: MET GOAL) One Impairment Lacks appropriate self care HEP Impairment Pt goal: - core and gluteal strength and balance. Be able to lift from 30 to 45. - Can't sit for more than 10' due to back (tight hamstrings) . - independent in HEP. Short Term Goal (STG) Will be instructed in HEP for balance and nelda core strengthening ex's to support therapy services provided in clinic. 03/09/24: NAM 50/56, TInetti 14/16. 03/16/24: reviewed deadbug, bridge /c hip abd #3 TB, resisted lateral stepping, repeated step up- L>R glut med /pirifor weakness. 06/01/24: HEP stationary bike, stretching: down dog, bridge, lifts 30# more stretching , child's pose, HS stretch supine, squat<> stand into over head lift 10# DB tiring no added pain 5 reps. lift increased 20# each UE. 06/18/24: NBOS stride stance uneven surface standing pull downs, sit>stand into over head press 5# DB BUE. 07/02/24: initiated corner balance tandem and SLS, recheck to add to HEP next tx. 07/07/24: HEP of corner standing balance ex's (EC standing on foam, and marching on level), tandem stance EO. STG Duration 08/21/24 progressing [facility]cf Goal (LTG) Pt will be independent with HEP of general LE strengthening and hip ROM ex's with the goal of improving pt 's perception of safety with gait. 03/16/24: progressing:bridge /c hip abd #3 TB, resisted lateral stepping, repeated step up- L>R glut med/pirifor weakness. 04/07/2024 Seated hip abd with band added to HEP 04/09/2024 Added stretching HS /c AP, and AROM knee flexion to HEP 04/16/24: HEP: Hip strengthening: hip AB/AD (sup & sidelie), Clamshell/Reverse clamshell, SLR, Bridge. 05/20/24: adde oblique isometric paloff press 06/01/24: initiated prone LE ext , reviewed doorway hip flexor stretch. 06/18/24: NBOS stride stance uneven surface standing pull downs, sit>stand into over head press 5# DB BUE. 07/24/24: HEP: Verbal instruction to do strengthening L hip: Supine: franci BKFO w/TB, hip flex with assist of belt. Sidelie: hip AB/AD. Sitting: hip IR/ER. 07/30/24: added LAQ band, ankle AROM R/ TB L. LTG Duration 10/02/24 [id number]/3/24 Assessment Summary Assessment Pt requires cues for trunk alignment on side and TA engagement during HEP to allow for proper form and reduction LB recruitment. Reports good muscle tiring. GOod feedback muscle tiring withadded LAQ and resisted L AROM R strengthenting HEP. Physical Therapy Plan Frequency and Duration Frequency of Treatment 2x/Week Duration of treatment (weeks) 12 Plan of Care Start Date 07/07/24 Plan of Care End Date 10/02/24 Therapeutic Interventions Therapeutic Interventions Balance Training,Gait Training ,Home Exercise Program,Manual Therapy,Neuromuscular Re- education,Self-Care/Home Management,Soft Tissue Mobilization,Therapeutic Activities,Therapeutic Exercises Modalities Cold Pack/Ice Massage Next Visit Focus/Plan Next Note Type Treatment Note Next Visit Plan See Precautions. Use KX modifier. Next: Issue hot/cold handout for nighttime pain. Recheck ankle ad LAQ HEP initiated. Review general LE strengthening (hip L flex/ER/ IR, franci AD). Monitor for pt causing nerve irritation and modify as needed: HS stretch, hip flexor stretch, prone LE ext and uneven surface semi tandem UE ext. Add: Trial lunges near rail for progression strength and bal uneven surface. Progress: Functional balance training, sport cord, uneven surface walking, and as tolerated Core strengthening ( NO lumbar rot/SB due to surgical hx). POC: Decrease pain franci LB/ hips & Core/hip stabilization/ strengthening; painfree hip mobility ex's; LB/hip ST; transfer training (hip hinging ); FOCUS ON: SELF pain mgmt; ADLs; improve balance.
--- NOTE | 2024-08-11 11:43 | PT.OTN ---
Current Diagnoses Other chronic pain (08/11/24) Low back pain, unspecified (08/11/24) Neuralgia and neuritis, unspecified (08/11/24) Other specified postprocedural states (08/11/24) Physical Therapy Treatment Note PT-OP-A Visit Information Start: 03/05/24 16:26 Freq: Status: Active Protocol: Document 08/11/24 10:44 MB (Rec: 08/11/24 11:43 MB [id number]) Out-Patient Physical Therapy Visit Information Visit Information Visit Type Treatment Note Visit Note Progress note next time KX modifier Visit Start Time 10:44 Visit Stop Time 11:40 Visit Number 24 Number of RESEARCH CLERK Visits 0 Evaluation Information Evaluation Date 03/06/24 Precautions Precautions TAPE ALLERGY. PMH: Anterior L YANELY-07/20, No Bending Lifting Twisting (told after SI lock surgery - R 10/04/2023, L 01/18) - told recover time after surgery 6 months by different physician. PT-OP-B Current Condition Start: 03/05/24 16:26 Freq: Status: Active Protocol: Document 03/06/24 11:18 LRN (Rec: 03/06/24 12:21 LRN [id number]) Current Condition History of Current Condition Onset Date 10/2023 Current Complaints SI pain, lateral hip and posterior hip/pelvic pain History of Current Condition Pt reportedly has had a sequence of surgeries in [place], starting 8 yrs ago and hasn't been able to get back into condition since. Last 2 surgeries were SI locks/ fusions with pinnings R side Sep 2023, L side 12/2023. Has pain on both sides different than prior to surgery. Expected outcome was relief of pain with transition (most standing up). His complaints now are pain that wakes him up in the morning, lateral hip and lateral/posterior pelvic pain. LBP starts later in the day. Pt moved to [facility] Aug 2023. 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 Prior Treatments and Tests Post surgical rehab in [place] after each SI lock/ fusion surgeries, both inpt and outpt rehab. Treatment Goals Patient/Caregiver Goals Pt goal: - core and gluteal strengthening and balance training. Be able to lift from 30-45 lbs. - Sit for more than 10' due to back (tight hamstrings). - independent in HEP. Current Functional Impairments (Reported) Functional Limitations- ADL's Stationary bike 6x/week - 15'/ day. 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 PT-OP-C Subjective Start: 03/05/24 16:26 Freq: Status: Active Protocol: Document 08/11/24 10:44 MB (Rec: 08/11/24 11:43 MB [id number]) OP-PT Subjective Patient Comments Patient Comments Pt reports no new changes. He had a neurology appointment and it was thorough. PT-OP-H Neuro Start: 03/05/24 16:26 Freq: Status: Active Protocol: Document 04/14/24 13:47 LRN (Rec: 04/14/24 16:25 LRN [id number]) Sensation Evaluation Location Details Right Lower Leg Light Touch Impaired Comments Summary Comments Decreased sensation of R lower leg from the top of the leg brace distally and from briscoe to brace upright stay. PT-OP-J Posture/Palpation/Skin Start: 03/05/24 16:26 Freq: Status: Active Protocol: Document 03/06/24 11:18 LRN (Rec: 03/06/24 12:21 LRN [id number]) Posture Evaluation Position Standing Head/C-Spine Posture Forward Head T-Spine Posture Increased Kyphosis L-Spine Posture Flattened Shoulder Posture (R) Elevated Comments Posture Comments Head shifted left, R shoulder elevated, protruding R ACJ, very slight anterior pelvic tilt, wide stance. Palpation Assessment Location Low back Palpation Location L paraspinasl ~T6-T12 Palpation Findings Muscle Guarding PT-OP-K Range of Motion Start: 03/05/24 16:26 Freq: Status: Active Protocol: Document 07/07/24 11:19 LRN (Rec: 07/07/24 12:43 LRN [id number]) Hip Goniometric Range of Motion Hip Right Active Testing Position Supine Straight Leg Raise 70 Left Active Testing Position Supine Straight Leg Raise 80 Comments Hip replacement side. Cramping more in L side. PT-OP-M Strength Start: 03/05/24 16:26 Freq: Status: Active Protocol: Document 03/06/24 11:18 LRN (Rec: 03/06/24 12:21 LRN [id number]) Trunk Strength Trunk Manual Muscle Testing Core Stabilization Mild to moderate loss of core stability as noted with MMT of LE's (primarily with flex and rotation). Hip Strength Hip Manual Muscle Testing Right Abduction 4 Good Adduction 2- Poor- Comments Hip strength is 5/5 except as indicated above. Left Flexion (L2) 4+ Good+ Adduction 2 Poor External Rotation 3 Fair Internal Rotation 3 Fair Comments Hip strength is 5/5 except as indicated above. PT-OP-Q Treatments Start: 03/05/24 16:26 Freq: Status: Active Protocol: Document 08/11/24 10:44 MB (Rec: 08/11/24 11:43 MB [id number]) Cardio Equipment Recumbent Bicycle Duration (Minutes) 15 Resistance 6-8 Seat Position 8 Manual Therapy Treatment Consent Patient gave verbal consent for manual Yes treatment Other Other Manual Treatments Pt supine with pillow under head, sacral cushion under hips and pelvis and legs up on plinth: positional release and STM B plantar fascia, PFs, quads, hamstrings, hip flexors, ribs with most tension right rectus femoris and hip flexor, left hamstrings, PFs and plantar fascia Self-Care/Home Management Treatment Education Other Education Ed pt in benefits of proper sleeping position, experimenting with pillows, ed pt in benefits of sitting on sacral cushion to help move pelvis/sacrum in sitting to stay loos and be able to tolerate sitting better, ed in adjusting height and distance of seat in car until then, ed on benefits of thinking about mattress d/t pain at night, consider getting back in pool PT-OP-T Assessment and Plan Start: 03/05/24 16:26 Freq: Status: Active Protocol: Document 08/11/24 10:44 MB (Rec: 08/11/24 11:43 MB [id number]) Physical Therapy Assessment Goals Three Impairment Decreased functional strength for performing home activities of lifting. Impairment Pt goal: - core and gluteal strength and balance. Be able to lift from 30 to 45. - Can't sit for more than 10' due to back (tight hamstrings) . - independent in HEP. Short Term Goal (STG) Pt will be educated in proper body mechanics for DLS and Mtz to Safe Movement. 04/02/24: Pt training/ education in body mechanics for ADLs & Proper Posture for Mtz to Safe Movement. STG Duration 4 wks-04/03/24 (04/02/24: MET GOAL) Intermediate Goal (LTG) Pt will be able to tolerate lifting 30#-45# with modification of lifting technique for functional activities at home. 03/16/24: incorporated straight back hip hinge in mirror deadlift 20# (2-10# DB). 05/20/24: progressing 30#: 2- 15# DB deadlift good hip hinge straight back painfree. : 10#DB BUE deadlift no pain good mechanics. 06/23/24: Pt reporting moving 40# heating pellets from stack to handtruck and into his home. 07/02/24: GOAL MET: able to lift 25lb wts in each UE. LTG Duration 07/24/24 GOAL MET: 07/02/24 Two Impairment Decreased sitting tolerance due to pain Impairment Can't sit for more than 10' due to back. Short Term Goal (STG) Improve LE mobility (tight hamstrings) and if tolerated neural mobility. 03/16/24: added standing bottoms up active HS stretch ( hands on step, knee ext). 05/20/24: progressing increased HS mobility: PROM 100 deg R, 92 deg L, AROM 90 deg R, 86deg L 07/07/24: PSLR: 70 deg's R, 80 deg's L. STG Duration 08/21/24 progressing 05/20/24 (worse 07/07/24 more numbness LEtoday) Engine Tester Goal (LTG) Pt will be able to improve functional sitting of 30-60' with modification of sitting or performing sitting mobility ex's to decrease pain. 04/09/2024 Patient reports sitting for one hour, but with increased ankle pain post, which decreased by 1/2 post manual therapy and and exercise. 04/27/24: Sitting in morning 10', in evening sit for 1 hr. 06/01/24: sitting early am sitting after wake up awaiting coffee 10 min before need stand, later am and later peak of day 4-430 takes Tylenol and Oxy to give relief. 06/18/24: slow progress: can sit approx 10 min drinking coffee have to stand up. 07/02/24: PRogressing: Able to sit 15 min before needs to stand due to discomfort. So elevates work station and continues work then when needed stops and dose stretching and helps provide relief then returns. 07/07/24: Sitting tolerance is 15'-60', standing tolerance 1-2 hrs before having to sit. LTG Duration 07/24/24 (07/07/24: MET GOAL) One Impairment Lacks appropriate self care HEP Impairment Pt goal: - core and gluteal strength and balance. Be able to lift from 30 to 45. - Can't sit for more than 10' due to back (tight hamstrings) . - independent in HEP. Short Term Goal (STG) Will be instructed in HEP for balance and nelda core strengthening ex's to support therapy services provided in clinic. 03/09/24: CYRIL 50/56, Radha /. 03/16/24: reviewed deadbug, bridge /c hip abd #3 TB, resisted lateral stepping, repeated step up- L>R glut med /pirifor weakness. 06/01/24: HEP stationary bike, stretching: down dog, bridge, lifts 30# more stretching , child's pose, HS stretch supine, squat<> stand into over head lift 10# DB tiring no added pain 5 reps. lift increased 20# each UE. 06/18/24: NBOS stride stance uneven surface standing pull downs, sit>stand into over head press 5# DB BUE. 07/02/24: initiated corner balance tandem and SLS, recheck to add to HEP next tx. 07/07/24: HEP of corner standing balance ex's (EC standing on foam, and marching on level), tandem stance EO. STG Duration 08/21/24 progressing Engine Tester Goal (LTG) Pt will be independent with HEP of general LE strengthening and hip ROM ex's with the goal of improving pt 's perception of safety with gait. 03/16/24: progressing:bridge /c hip abd #3 TB, resisted lateral stepping, repeated step up- L>R glut med/pirifor weakness. 04/07/2024 Seated hip abd with band added to HEP 04/09/2024 Added stretching HS /c AP, and AROM knee flexion to HEP 04/16/24: HEP: Hip strengthening: hip AB/AD (sup & sidelie), Clamshell/Reverse clamshell, SLR, Bridge. 05/20/24: adde oblique isometric paloff press 06/01/24: initiated prone LE ext , reviewed doorway hip flexor stretch. 06/18/24: NBOS stride stance uneven surface standing pull downs, sit>stand into over head press 5# DB BUE. 07/24/24: HEP: Verbal instruction to do strengthening L hip: Supine: franci BKFO w/TB, hip flex with assist of belt. Sidelie: hip AB/AD. Sitting: hip IR/ER. 07/30/24: added LAQ band, ankle AROM R/ TB L. LTG Duration 10/02/24 [id number]/3/24 Assessment Summary Assessment Self-care education today, fascial assessment and treatment and pt responds well . Progress note next treatment . Physical Therapy Plan Frequency and Duration Frequency of Treatment 2x/Week Duration of treatment (weeks) 12 Plan of Care Start Date 07/07/24 Plan of Care End Date 10/02/24 Therapeutic Interventions Therapeutic Interventions Balance Training,Gait Training ,Home Exercise Program,Manual Therapy,Neuromuscular Re- education,Self-Care/Home Management,Soft Tissue Mobilization,Therapeutic Activities,Therapeutic Exercises Modalities Cold Pack/Ice Massage Next Visit Focus/Plan Next Note Type Progress Note Next Visit Plan See Precautions. Use KX modifier. Next: Issue hot/cold handout for nighttime pain. Recheck ankle ad LAQ HEP initiated. Review general LE strengthening (hip L flex/ER/ IR, franci AD). Monitor for pt causing nerve irritation and modify as needed: HS stretch, hip flexor stretch, prone LE ext and uneven surface semi tandem UE ext. Add: Trial lunges near rail for progression strength and bal uneven surface. Progress: Functional balance training, sport cord, uneven surface walking, and as tolerated Core strengthening ( NO lumbar rot/SB due to surgical hx). POC: Decrease pain franci LB/ hips & Core/hip stabilization/ strengthening; painfree hip mobility ex's; LB/hip ST; transfer training (hip hinging ); FOCUS ON: SELF pain mgmt; ADLs; improve balance.
--- NOTE | 2024-08-13 14:31 | PT.OTN ---
Current Diagnoses Other chronic pain (08/13/24) Low back pain, unspecified (08/13/24) Neuralgia and neuritis, unspecified (08/13/24) Other specified postprocedural states (08/13/24) Physical Therapy Treatment Note PT-OP-A Visit Information Start: 03/05/24 16:26 Freq: Status: Active Protocol: Document 08/13/24 13:51 SP (Rec: 08/13/24 14:34 SP [id number]) Out-Patient Physical Therapy Visit Information Visit Information Visit Type Treatment Note Visit Note Progress note next 08/20/24 with PT KX modifier Visit Start Time 13:51 Visit Stop Time 14:31 Visit Number Number of LEATHER TACKER Visits 1 Evaluation Information Evaluation Date 03/06/24 Precautions Precautions TAPE ALLERGY. PMH: Anterior L YANELY-07/20, No Bending Lifting Twisting (told after SI lock surgery - R 10/04/2023, L 01/18) - told recover time after surgery 6 months by different physician. PT-OP-B Current Condition Start: 03/05/24 16:26 Freq: Status: Active Protocol: Document 03/06/24 11:18 LRN (Rec: 03/06/24 12:21 LRN [id number]) Current Condition History of Current Condition Onset Date 10/2023 Current Complaints SI pain, lateral hip and posterior hip/pelvic pain History of Current Condition Pt reportedly has had a sequence of surgeries in [place], starting 8 yrs ago and hasn't been able to get back into condition since. Last 2 surgeries were SI locks/ fusions with pinnings R side Sep 2023, L side 12/2023. Has pain on both sides different than prior to surgery. Expected outcome was relief of pain with transition (most standing up). His complaints now are pain that wakes him up in the morning, lateral hip and lateral/posterior pelvic pain. LBP starts later in the day. Pt moved to [facility] Aug 2023. 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 Prior Treatments and Tests Post surgical rehab in [place] after each SI lock/ fusion surgeries, both inpt and outpt rehab. Treatment Goals Patient/Caregiver Goals Pt goal: - core and gluteal strengthening and balance training. Be able to lift from 30-45 lbs. - Sit for more than 10' due to back (tight hamstrings). - independent in HEP. Current Functional Impairments (Reported) Functional Limitations- ADL's Stationary bike 6x/week - 15'/ day. 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 PT-OP-C Subjective Start: 03/05/24 16:26 Freq: Status: Active Protocol: Document 08/13/24 13:51 SP (Rec: 08/13/24 14:34 SP [id number]) OP-PT Subjective Patient Comments Patient Comments Pt reports did feel less tension after last tx and trying incorporate education of sitting and side sleeping posture and cushion/pillows suggested with noted improvement in comfort. He didn't take his 1000 mg Tylenol regimen and 5mg Oxy this am until just before and noticing nerve pain into legs arrival. Continues to have cramps at night and found use pillows between knees and suprised helps with back and leg comfort sleeping. States using cruise control and wt shifting for comfort driving and getting up standing when sit long enough cause pain, still approx 10-15 min. He reports is compliant with HEP, hasn't done much deadlifting lately, probably can't lift 30 # as was doing not to long ago . PT-OP-H Neuro Start: 03/05/24 16:26 Freq: Status: Active Protocol: Document 04/14/24 13:47 LRN (Rec: 04/14/24 16:25 LRN [id number]) Sensation Evaluation Location Details Right Lower Leg Light Touch Impaired Comments Summary Comments Decreased sensation of R lower leg from the top of the leg brace distally and from briscoe to brace upright stay. PT-OP-J Posture/Palpation/Skin Start: 03/05/24 16:26 Freq: Status: Active Protocol: Document 03/06/24 11:18 LRN (Rec: 03/06/24 12:21 LRN [id number]) Posture Evaluation Position Standing Head/C-Spine Posture Forward Head T-Spine Posture Increased Kyphosis L-Spine Posture Flattened Shoulder Posture (R) Elevated Comments Posture Comments Head shifted left, R shoulder elevated, protruding R ACJ, very slight anterior pelvic tilt, wide stance. Palpation Assessment Location Low back Palpation Location L paraspinasl ~T6-T12 Palpation Findings Muscle Guarding PT-OP-K Range of Motion Start: 03/05/24 16:26 Freq: Status: Active Protocol: Document 07/07/24 11:19 LRN (Rec: 07/07/24 12:43 LRN [id number]) Hip Goniometric Range of Motion Hip Right Active Testing Position Supine Straight Leg Raise 70 Left Active Testing Position Supine Straight Leg Raise 80 Comments Hip replacement side. Cramping more in L side. PT-OP-M Strength Start: 03/05/24 16:26 Freq: Status: Active Protocol: Document 03/06/24 11:18 LRN (Rec: 03/06/24 12:21 LRN [id number]) Trunk Strength Trunk Manual Muscle Testing Core Stabilization Mild to moderate loss of core stability as noted with MMT of LE's (primarily with flex and rotation). Hip Strength Hip Manual Muscle Testing Right Abduction 4 Good Adduction 2- Poor- Comments Hip strength is 5/5 except as indicated above. Left Flexion (L2) 4+ Good+ Adduction 2 Poor External Rotation 3 Fair Internal Rotation 3 Fair Comments Hip strength is 5/5 except as indicated above. PT-OP-Q Treatments Start: 03/05/24 16:26 Freq: Status: Active Protocol: Document 08/13/24 13:51 SP (Rec: 08/13/24 14:34 SP [id number]) Cardio Equipment Recumbent Bicycle Duration (Minutes) 18 Resistance 6-8 Seat Position 8 Other good effort, PATRICK- 6.30 milwa Therapeutic Exercises Sidelying Exercises Hip AB Sidelying Exercise Name R sidelie Side left Resistance AROM Reps/Minutes 10 x 2 Comments cued stacked on side alignment Clamshell Sidelying Exercise Name R sidelie Side bilateral Reps/Minutes 10 x 2 Comments cued slower pacing /c TA fac on side, no rolling back Hip AD Sidelying Exercise Name L sidelie Side right Reps/Minutes 10 x2 Comments 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 repeat wt shift, 2. hold stretch deadlift mechanics Standing Exercise Name reviewed HEP Resistance 2- 10# DB ( reduced from 25# each due to while since performed home/PT) Reps/Minutes 2x10 Comments mini squat held Db at side of legs, cued chest lift- pnfree reported Manual Therapy Treatment Consent Patient gave verbal consent for manual Yes treatment Soft Tissue Mobilization Quads Body Location Franci Quads, TLF, Glut med, ITB Mobilization Type Myofascial Release,Rolling Intensity/Depth Moderate Body Position SL Comments Reports decreased tightness, adjustment in pressure with pt feedback and directioning. LS paraspinals Body Location bilateral ES, QL (avoiding implant) Mobilization Type Sustained Pressure Intensity/Depth Moderate Body Position Sidelying Comments Reports decreased tightness, adjustment in pressure with pt feedback and directioning. PT-OP-T Assessment and Plan Start: 03/05/24 16:26 Freq: Status: Active Protocol: Document 08/13/24 13:51 SP (Rec: 08/13/24 14:34 SP [id number]) Physical Therapy Assessment Goals Three Impairment Decreased functional strength for performing home activities of lifting. Impairment Pt goal: - core and gluteal strength and balance. Be able to lift from 30 to 45. - Can't sit for more than 10' due to back (tight hamstrings) . - independent in HEP. Short Term Goal (STG) Pt will be educated in proper body mechanics for DLS and Mtz to Safe Movement. 04/02/24: Pt training/ education in body mechanics for ADLs & Proper Posture for Mtz to Safe Movement. STG Duration 4 wks-04/03/24 (04/02/24: MET GOAL) Usp Goal (LTG) Pt will be able to tolerate lifting 30#-45# with modification of lifting technique for functional activities at home. 03/16/24: incorporated straight back hip hinge in mirror deadlift 20# (2-10# DB). 05/20/24: progressing 30#: 2- 15# DB deadlift good hip hinge straight back painfree. : 10#DB BUE deadlift no pain good mechanics. 06/23/24: Pt reporting moving 40# heating pellets from stack to handtruck and into his home. 07/02/24: GOAL MET: able to lift 25lb wts in each UE. LTG Duration 07/24/24 GOAL MET: 07/02/24 Two Impairment Decreased sitting tolerance due to pain Impairment Can't sit for more than 10' due to back. Short Term Goal (STG) Improve LE mobility (tight hamstrings) and if tolerated neural mobility. 03/16/24: added standing bottoms up active HS stretch ( hands on step, knee ext). 05/20/24: progressing increased HS mobility: PROM 100 deg R, 92 deg L, AROM 90 deg R, 86deg L 07/07/24: PSLR: 70 deg's R, 80 deg's L. 08/13/24: tight but not painful HS during deadlift HEP today. STG Duration 08/21/24 update 08/13/24 Staff Radiologist Goal (LTG) Pt will be able to improve functional sitting of 30-60' with modification of sitting or performing sitting mobility ex's to decrease pain. 04/09/2024 Patient reports sitting for one hour, but with increased ankle pain post, which decreased by 1/2 post manual therapy and and exercise. 04/27/24: Sitting in morning 10', in evening sit for 1 hr. 06/01/24: sitting early am sitting after wake up awaiting coffee 10 min before need stand, later am and later peak of day 4-430 takes Tylenol and Oxy to give relief. 06/18/24: slow progress: can sit approx 10 min drinking coffee have to stand up. 07/02/24: PRogressing: Able to sit 15 min before needs to stand due to discomfort. So elevates work station and continues work then when needed stops and dose stretching and helps provide relief then returns. 07/07/24: Sitting tolerance is 15'-60', standing tolerance 1-2 hrs before having to sit. LTG Duration 07/24/24 (07/07/24: MET GOAL) One Impairment Lacks appropriate self care HEP Impairment Pt goal: - core and gluteal strength and balance. Be able to lift from 30 to 45. - Can't sit for more than 10' due to back (tight hamstrings) . - independent in HEP. Short Term Goal (STG) Will be instructed in HEP for balance and nelda core strengthening ex's to support therapy services provided in clinic. 03/09/24: NAM 50/56, Radha 14/16. 03/16/24: reviewed deadbug, bridge /c hip abd #3 TB, resisted lateral stepping, repeated step up- L>R glut med /pirifor weakness. 06/01/24: HEP stationary bike, stretching: down dog, bridge, lifts 30# more stretching , child's pose, HS stretch supine, squat<> stand into over head lift 10# DB tiring no added pain 5 reps. lift increased 20# each UE. 06/18/24: NBOS stride stance uneven surface standing pull downs, sit>stand into over head press 5# DB BUE. 07/02/24: initiated corner balance tandem and SLS, recheck to add to HEP next tx. 07/07/24: HEP of corner standing balance ex's (EC standing on foam, and marching on level), tandem stance EO. STG Duration 08/21/24 progressing Staff Radiologist Goal (LTG) Pt will be independent with HEP of general LE strengthening and hip ROM ex's with the goal of improving pt 's perception of safety with gait. 03/16/24: progressing:bridge /c hip abd #3 TB, resisted lateral stepping, repeated step up- L>R glut med/pirifor weakness. 04/07/2024 Seated hip abd with band added to HEP 04/09/2024 Added stretching HS /c AP, and AROM knee flexion to HEP 04/16/24: HEP: Hip strengthening: hip AB/AD (sup & sidelie), Clamshell/Reverse clamshell, SLR, Bridge. 05/20/24: adde oblique isometric paloff press 06/01/24: initiated prone LE ext , reviewed doorway hip flexor stretch. 06/18/24: NBOS stride stance uneven surface standing pull downs, sit>stand into over head press 5# DB BUE. 07/24/24: HEP: Verbal instruction to do strengthening L hip: Supine: franci BKFO w/TB, hip flex with assist of belt. Sidelie: hip AB/AD. Sitting: hip IR/ER. 07/30/24: added LAQ band, ankle AROM R/ TB L. LTG Duration 10/02/24 [id number]/3/24 Assessment Summary Assessment Pt reports back pain reducation 6.5/10 to 4-5/10 end tx after manual, ther ex and active trunk flexion with dumbbell resistance good core and leg tightening effort with proper breath exhale during active into standing. Edcuation provided for continued flexibility and strengthening with many ther ex given for carryover activity level. Decreased time end tx today to progress into balance activities, will address next tx. Physical Therapy Plan Frequency and Duration Frequency of Treatment 2x/Week Duration of treatment (weeks) 12 Plan of Care Start Date 07/07/24 Plan of Care End Date 10/02/24 Therapeutic Interventions Therapeutic Interventions Balance Training,Gait Training ,Home Exercise Program,Manual Therapy,Neuromuscular Re- education,Self-Care/Home Management,Soft Tissue Mobilization,Therapeutic Activities,Therapeutic Exercises Modalities Cold Pack/Ice Massage Next Visit Focus/Plan Next Note Type Progress Note Next Visit Plan See Precautions spinal implant R low back. Use KX modifier . Continue incorporated strength HEP seen below and progress balance activities toward goal #1. PT recommendation Next: Issue hot/cold handout for nighttime pain. Recheck ankle ad LAQ HEP initiated, Add: Trial lunges near rail for progression strength and bal uneven surface. Continue sport cord uneven surface. Review general LE strengthening (hip L flex/ER/IR, franci AD). Monitor for pt causing nerve irritation and modify as needed: HS stretch, hip flexor stretch, prone LE ext and uneven surface semi tandem UE ext. Progress: Functional balance training, sport cord, uneven surface walking, and as tolerated Core strengthening ( NO lumbar rot/SB due to surgical hx). POC: Decrease pain franci LB/ hips & Core/hip stabilization/ strengthening; painfree hip mobility ex's; LB/hip ST; transfer training (hip hinging ); FOCUS ON: SELF pain mgmt; ADLs; improve balance.
--- NOTE | 2024-08-17 16:31 | PT.OTN ---
Addendum entered and electronically signed by Anjali Diehl 08/17/24 16:32: error Original Note: Current Diagnoses Other chronic pain (08/17/24) Low back pain, unspecified (08/17/24) Neuralgia and neuritis, unspecified (08/17/24) Other specified postprocedural states (08/17/24) Physical Therapy Treatment Note PT-OP-A Visit Information Start: 03/05/24 16:26 Freq: Status: Active Protocol: Document 08/13/24 13:51 SP (Rec: 08/13/24 14:34 SP [id number]) Out-Patient Physical Therapy Visit Information Visit Information Visit Type Treatment Note Visit Note Progress note next 08/20/24 with PT KX modifier Visit Start Time 13:51 Visit Stop Time 14:31 Visit Number 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 PMH: Anterior L YANELY-07/20, No Bending Lifting Twisting (told after SI lock surgery - R 10/04/2023, L 01/18) - told recover time after surgery 6 months by different physician. PT-OP-B Current Condition Start: 03/05/24 16:26 Freq: Status: Active Protocol: Document 03/06/24 11:18 LRN (Rec: 03/06/24 12:21 LRN [id number]) Current Condition History of Current Condition Onset Date 10/2023 Current Complaints SI pain, lateral hip and posterior hip/pelvic pain History of Current Condition Pt reportedly has had a sequence of surgeries in [place], starting 8 yrs ago and hasn't been able to get back into condition since. Last 2 surgeries were SI locks/ fusions with pinnings R side Sep 2023, L side 12/2023. Has pain on both sides different than prior to surgery. Expected outcome was relief of pain with transition (most standing up). His complaints now are pain that wakes him up in the morning, lateral hip and lateral/posterior pelvic pain. LBP starts later in the day. 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 Prior Treatments and Tests Post surgical rehab in [place] after each SI lock/ fusion surgeries, both inpt and outpt rehab. Treatment Goals Patient/Caregiver Goals Pt goal: - core and gluteal strengthening and balance training. Be able to lift from 30-45 lbs. - Sit for more than 10' due to back (tight hamstrings). - independent in HEP. Current Functional Impairments (Reported) Functional Limitations- ADL's Stationary bike 6x/week - 15'/ day. 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 PT-OP-C Subjective Start: 03/05/24 16:26 Freq: Status: Active Protocol: Document 08/13/24 13:51 SP (Rec: 08/13/24 14:34 SP [id number]) OP-PT Subjective Patient Comments Patient Comments Pt reports did feel less tension after last tx and trying incorporate education of sitting and side sleeping posture and cushion/pillows suggested with noted improvement in comfort. He didn't take his 1000 mg Tylenol regimen and 5mg Oxy this am until just before and noticing nerve pain into legs arrival. Continues to have cramps at night and found use pillows between knees and suprised helps with back and leg comfort sleeping. States using cruise control and wt shifting for comfort driving and getting up standing when sit long enough cause pain, still approx 10-15 min. He reports is compliant with HEP, hasn't done much deadlifting lately, probably can't lift 30 # as was doing not to long ago . PT-OP-H Neuro Start: 03/05/24 16:26 Freq: Status: Active Protocol: Document 04/14/24 13:47 LRN (Rec: 04/14/24 16:25 LRN [id number]) Sensation Evaluation Location Details Right Lower Leg Light Touch Impaired Comments Summary Comments Decreased sensation of R lower leg from the top of the leg brace distally and from briscoe to brace upright stay. PT-OP-J Posture/Palpation/Skin Start: 03/05/24 16:26 Freq: Status: Active Protocol: Document 03/06/24 11:18 LRN (Rec: 03/06/24 12:21 LRN [id number]) Posture Evaluation Position Standing Head/C-Spine Posture Forward Head T-Spine Posture Increased Kyphosis L-Spine Posture Flattened Shoulder Posture (R) Elevated Comments Posture Comments Head shifted left, R shoulder elevated, protruding R ACJ, very slight anterior pelvic tilt, wide stance. Palpation Assessment Location Low back Palpation Location L paraspinasl ~T6-T12 Palpation Findings Muscle Guarding PT-OP-K Range of Motion Start: 03/05/24 16:26 Freq: Status: Active Protocol: Document 07/07/24 11:19 LRN (Rec: 07/07/24 12:43 LRN [id number]) Hip Goniometric Range of Motion Hip Right Active Testing Position Supine Straight Leg Raise 70 Left Active Testing Position Supine Straight Leg Raise 80 Comments Hip replacement side. Cramping more in L side. PT-OP-M Strength Start: 03/05/24 16:26 Freq: Status: Active Protocol: Document 03/06/24 11:18 LRN (Rec: 03/06/24 12:21 LRN [id number]) Trunk Strength Trunk Manual Muscle Testing Core Stabilization Mild to moderate loss of core stability as noted with MMT of LE's (primarily with flex and rotation). Hip Strength Hip Manual Muscle Testing Right Abduction 4 Good Adduction 2- Poor- Comments Hip strength is 5/5 except as indicated above. Left Flexion (L2) 4+ Good+ Adduction 2 Poor External Rotation 3 Fair Internal Rotation 3 Fair Comments Hip strength is 5/5 except as indicated above. PT-OP-Q Treatments Start: 03/05/24 16:26 Freq: Status: Active Protocol: Document 08/13/24 13:51 SP (Rec: 08/13/24 14:34 SP [id number]) Cardio Equipment Recumbent Bicycle Duration (Minutes) 18 Resistance 6-8 Seat Position 8 Other good effort, PATRICK- 6.30 milwa Therapeutic Exercises Sidelying Exercises Hip AB Sidelying Exercise Name R sidelie Side left Resistance AROM Reps/Minutes 10 x 2 Comments cued stacked on side alignment Clamshell Sidelying Exercise Name R sidelie Side bilateral Reps/Minutes 10 x 2 Comments cued slower pacing /c TA fac on side, no rolling back Hip AD Sidelying Exercise Name L sidelie Side right Reps/Minutes 10 x2 Comments cued TA, 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 repeat wt shift, 2. hold stretch deadlift mechanics Standing Exercise Name reviewed HEP Resistance 2- 10# DB ( reduced from 25# each due to while since performed home/PT) Reps/Minutes 2x10 Comments mini squat held Db at side of legs, cued chest lift- pnfree reported Manual Therapy Treatment Consent Patient gave verbal consent for manual Yes treatment Soft Tissue Mobilization Quads Body Location Franci Quads, TLF, Glut med, ITB Mobilization Type Myofascial Release,Rolling Intensity/Depth Moderate Body Position SL Comments Reports decreased tightness, adjustment in pressure with pt feedback and directioning. LS paraspinals Body Location bilateral ES, QL (avoiding implant) Mobilization Type Sustained Pressure Intensity/Depth Moderate Body Position Sidelying Comments Reports decreased tightness, adjustment in pressure with pt feedback and directioning. PT-OP-T Assessment and Plan Start: 03/05/24 16:26 Freq: Status: Active Protocol: Document 08/13/24 13:51 SP (Rec: 08/13/24 14:34 SP [id number]) Physical Therapy Assessment Goals Three Impairment Decreased functional strength for performing home activities of lifting. Impairment Pt goal: - core and gluteal strength and balance. Be able to lift from 30 to 45. - Can't sit for more than 10' due to back (tight hamstrings) . - independent in HEP. Short Term Goal (STG) Pt will be educated in proper body mechanics for DLS and Mtz to Safe Movement. 04/02/24: Pt training/ education in body mechanics for ADLs & Proper Posture for Mtz to Safe Movement. STG Duration 4 wks-04/03/24 (04/02/24: MET GOAL) Assisted Goal (LTG) Pt will be able to tolerate lifting 30#-45# with modification of lifting technique for functional activities at home. 03/16/24: incorporated straight back hip hinge in mirror deadlift 20# (2-10# DB). 05/20/24: progressing 30#: 2- 15# DB deadlift good hip hinge straight back painfree. : 10#DB BUE deadlift no pain good mechanics. 06/23/24: Pt reporting moving 40# heating pellets from stack to handtruck and into his home. 07/02/24: GOAL MET: able to lift 25lb wts in each UE. LTG Duration 07/24/24 GOAL MET: 07/02/24 Two Impairment Decreased sitting tolerance due to pain Impairment Can't sit for more than 10' due to back. Short Term Goal (STG) Improve LE mobility (tight hamstrings) and if tolerated neural mobility. 03/16/24: added standing bottoms up active HS stretch ( hands on step, knee ext). 05/20/24: progressing increased HS mobility: PROM 100 deg R, 92 deg L, AROM 90 deg R, 86deg L 07/07/24: PSLR: 70 deg's R, 80 deg's L. 08/13/24: tight but not painful HS during deadlift HEP today. 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 04/09/2024 Patient reports sitting for one hour, but with increased ankle pain post, which decreased by 1/2 post manual therapy and and exercise. 04/27/24: Sitting in morning 10', in evening sit for 1 hr. 06/01/24: sitting early am sitting after wake up awaiting coffee 10 min before need stand, later am and later peak of day 4-430 takes Tylenol and Oxy to give relief. 06/18/24: slow progress: can sit approx 10 min drinking coffee have to stand up. 07/02/24: PRogressing: Able to sit 15 min before needs to stand due to discomfort. So elevates work station and continues work then when needed stops and dose stretching and helps provide relief then returns. 07/07/24: Sitting tolerance is 15'-60', standing tolerance 1-2 hrs before having to sit. LTG Duration 07/24/24 (07/07/24: MET GOAL) One Impairment Lacks appropriate self care HEP Impairment Pt goal: - core and gluteal strength and balance. Be able to lift from 30 to 45. - Can't sit for more than 10' due to back (tight hamstrings) . - independent in HEP. Short Term Goal (STG) Will be instructed in HEP for balance and nelda core strengthening ex's to support therapy services provided in clinic. 03/09/24: NAM 50/56, Radha 14/16. 03/16/24: reviewed deadbug, bridge /c hip abd #3 TB, resisted lateral stepping, repeated step up- L>R glut med /pirifor weakness. 06/01/24: HEP stationary bike, stretching: down dog, bridge, lifts 30# more stretching , child's pose, HS stretch supine, squat<> stand into over head lift 10# DB tiring no added pain 5 reps. lift increased 20# each UE. 06/18/24: NBOS stride stance uneven surface standing pull downs, sit>stand into over head press 5# DB BUE. 07/02/24: initiated corner balance tandem and SLS, recheck to add to HEP next tx. 07/07/24: HEP of corner standing balance ex's (EC standing on foam, and marching on level), tandem stance EO. STG Duration 08/21/24 progressing Assisted Goal (LTG) Pt will be independent with HEP of general LE strengthening and hip ROM ex's with the goal of improving pt 's perception of safety with gait. 03/16/24: progressing:bridge /c hip abd #3 TB, resisted lateral stepping, repeated step up- L>R glut med/pirifor weakness. 04/07/2024 Seated hip abd with band added to HEP 04/09/2024 Added stretching HS /c AP, and AROM knee flexion to HEP 04/16/24: HEP: Hip strengthening: hip AB/AD (sup & sidelie), Clamshell/Reverse clamshell, SLR, Bridge. 05/20/24: adde oblique isometric paloff press 06/01/24: initiated prone LE ext , reviewed doorway hip flexor stretch. 06/18/24: NBOS stride stance uneven surface standing pull downs, sit>stand into over head press 5# DB BUE. 07/24/24: HEP: Verbal instruction to do strengthening L hip: Supine: franci BKFO w/TB, hip flex with assist of belt. Sidelie: hip AB/AD. Sitting: hip IR/ER. 07/30/24: added LAQ band, ankle AROM R/ TB L. LTG Duration 10/02/24 [id number]/3/24 Assessment Summary Assessment Pt reports back pain reducation 6.5/10 to 4-5/10 end tx after manual, ther ex and active trunk flexion with dumbbell resistance good core and leg tightening effort with proper breath exhale during active into standing. Edcuation provided for continued flexibility and strengthening with many ther ex given for carryover activity level. Decreased time end tx today to progress into balance activities, will address next tx. Physical Therapy Plan Frequency and Duration Frequency of Treatment 2x/Week Duration of treatment (weeks) 12 Plan of Care Start Date 07/07/24 Plan of Care End Date 10/02/24 Therapeutic Interventions Therapeutic Interventions Balance Training,Gait Training ,Home Exercise Program,Manual Therapy,Neuromuscular Re- education,Self-Care/Home Management,Soft Tissue Mobilization,Therapeutic Activities,Therapeutic Exercises Modalities Cold Pack/Ice Massage Next Visit Focus/Plan Next Note Type Progress Note Next Visit Plan See Precautions spinal implant R low back. Use KX modifier . Continue incorporated strength HEP seen below and progress balance activities toward goal #1. PT recommendation Next: Issue hot/cold handout for nighttime pain. Recheck ankle ad LAQ HEP initiated, Add: Trial lunges near rail for progression strength and bal uneven surface. Continue sport cord uneven surface. Review general LE strengthening (hip L flex/ER/IR, franci AD). Monitor for pt causing nerve irritation and modify as needed: HS stretch, hip flexor stretch, prone LE ext and uneven surface semi tandem UE ext. Progress: Functional balance training, sport cord, uneven surface walking, and as tolerated Core strengthening ( NO lumbar rot/SB due to surgical hx). POC: Decrease pain franci LB/ hips & Core/hip stabilization/ strengthening; painfree hip mobility ex's; LB/hip ST; transfer training (hip hinging ); FOCUS ON: SELF pain mgmt; ADLs; improve balance.
--- NOTE | 2024-08-17 16:32 | PT.OTN ---
Current Diagnoses Other chronic pain (08/17/24) Low back pain, unspecified (08/17/24) Neuralgia and neuritis, unspecified (08/17/24) Other specified postprocedural states (08/17/24) Physical Therapy Treatment Note PT-OP-A Visit Information Start: 03/05/24 16:26 Freq: Status: Active Protocol: Document 08/17/24 12:26 AB (Rec: 08/17/24 16:32 AB [id number]) Out-Patient Physical Therapy Visit Information Visit Information Visit Type Treatment Note Visit Note Progress note next 08/20/24 with PT Access Code: [email or web address] KX modifier Visit Start Time 14:33 Visit Stop Time 15:17 Visit Number Number of DEGREASING SOLUTION RECLAIMER Visits 2 Evaluation Information Evaluation Date 03/06/24 Precautions Precautions TAPE ALLERGY. PMH: Anterior L YANELY-07/20, No Bending Lifting Twisting (told after SI lock surgery - R 10/04/2023, L 01/18) - told recover time after surgery 6 months by different physician. PT-OP-B Current Condition Start: 03/05/24 16:26 Freq: Status: Active Protocol: Document 03/06/24 11:18 LRN (Rec: 03/06/24 12:21 LRN [id number]) Current Condition History of Current Condition Onset Date 10/2023 Current Complaints SI pain, lateral hip and posterior hip/pelvic pain History of Current Condition Pt reportedly has had a sequence of surgeries in [place], starting 8 yrs ago and hasn't been able to get back into condition since. Last 2 surgeries were SI locks/ fusions with pinnings R side Sep 2023, L side 12/2023. Has pain on both sides different than prior to surgery. Expected outcome was relief of pain with transition (most standing up). His complaints now are pain that wakes him up in the morning, lateral hip and lateral/posterior pelvic pain. LBP starts later in the day. Pt moved to [facility] Aug 2023. 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 Prior Treatments and Tests Post surgical rehab in [place] after each SI lock/ fusion surgeries, both inpt and outpt rehab. Treatment Goals Patient/Caregiver Goals Pt goal: - core and gluteal strengthening and balance training. Be able to lift from 30-45 lbs. - Sit for more than 10' due to back (tight hamstrings). - independent in HEP. Current Functional Impairments (Reported) Functional Limitations- ADL's Stationary bike 6x/week - 15'/ day. 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 PT-OP-C Subjective Start: 03/05/24 16:26 Freq: Status: Active Protocol: Document 08/17/24 12:26 AB (Rec: 08/17/24 16:32 AB [id number]) OP-PT Subjective Patient Comments Patient Comments Patient rates sitting mechelle 10 min and standing mechelle 10 minutes. Hamstrings AROM lacking 32 deg left 28 deg right measured 90/90 position. SLS left and right LE less than one second without UE use . PT-OP-H Neuro Start: 03/05/24 16:26 Freq: Status: Active Protocol: Document 04/14/24 13:47 LRN (Rec: 04/14/24 16:25 LRN [id number]) Sensation Evaluation Location Details Right Lower Leg Light Touch Impaired Comments Summary Comments Decreased sensation of R lower leg from the top of the leg brace distally and from briscoe to brace upright stay. PT-OP-J Posture/Palpation/Skin Start: 03/05/24 16:26 Freq: Status: Active Protocol: Document 03/06/24 11:18 LRN (Rec: 03/06/24 12:21 LRN [id number]) Posture Evaluation Position Standing Head/C-Spine Posture Forward Head T-Spine Posture Increased Kyphosis L-Spine Posture Flattened Shoulder Posture (R) Elevated Comments Posture Comments Head shifted left, R shoulder elevated, protruding R ACJ, very slight anterior pelvic tilt, wide stance. Palpation Assessment Location Low back Palpation Location L paraspinasl ~T6-T12 Palpation Findings Muscle Guarding PT-OP-K Range of Motion Start: 03/05/24 16:26 Freq: Status: Active Protocol: Document 07/07/24 11:19 LRN (Rec: 07/07/24 12:43 LRN [id number]) Hip Goniometric Range of Motion Hip Right Active Testing Position Supine Straight Leg Raise 70 Left Active Testing Position Supine Straight Leg Raise 80 Comments Hip replacement side. Cramping more in L side. PT-OP-M Strength Start: 03/05/24 16:26 Freq: Status: Active Protocol: Document 03/06/24 11:18 LRN (Rec: 03/06/24 12:21 LRN [id number]) Trunk Strength Trunk Manual Muscle Testing Core Stabilization Mild to moderate loss of core stability as noted with MMT of LE's (primarily with flex and rotation). Hip Strength Hip Manual Muscle Testing Right Abduction 4 Good Adduction 2- Poor- Comments Hip strength is 5/5 except as indicated above. Left Flexion (L2) 4+ Good+ Adduction 2 Poor External Rotation 3 Fair Internal Rotation 3 Fair Comments Hip strength is 5/5 except as indicated above. PT-OP-Q Treatments Start: 03/05/24 16:26 Freq: Status: Active Protocol: Document 08/17/24 12:26 AB (Rec: 08/17/24 16:32 AB [id number]) Cardio Equipment Recumbent Bicycle Duration (Minutes) 12 Resistance 6 Seat Position 8 Other Patient initiated Gym Equipment Shuttle Balance red Details stagger Reps/Duration 3 min Comments with visual scanning and head turns CGA Therapeutic Exercises Supine Exercises hamstring stretch Supine Exercise Name from hooklying with ankle pumps on with knee flexion X 5 Side bilateral Reps/Minutes 60 seconds X 2each LE Piriformis stretch Supine Exercise Name from hookling Reps/Minutes 60 sec X 2 each LE Sitting Exercises seated hip IR AROM Side bilateral Resistance level one light blue Reps/Minutes X15 Comments Verbal cues Standing Exercises glute med isometric Standing Exercise Name HEP Side bilateral Reps/Minutes 50 seconds each side Comments SLS left LE increased to 4 sec right LE continues to be less than one sec resisted side stepping Standing Exercise Name Side steppinng HEP Side bilateral Equipment Used level one band Reps/Minutes 2 min Comments verbal cues to avoid toeing out bottoms up Standing Exercise Name HS stretch- Side bilateral Equipment Used hands on chair and hands on thighs Reps/Minutes X4 and X 15 Comments poor form with hands on chair, improved with hands on thighs Other Exercises down dog Other Exercise Name Patient initiated good form Reps/Minutes 40 to 60 second Manual Therapy Treatment Consent Patient gave verbal consent for manual Yes treatment Soft Tissue Mobilization Hamstrings Body Location bilateral hamstrings Mobilization Type Cross-Friction,Rolling Intensity/Depth Moderate Body Position Prone PT-OP-T Assessment and Plan Start: 03/05/24 16:26 Freq: Status: Active Protocol: Document 08/17/24 12:26 AB (Rec: 08/17/24 16:32 AB [id number]) Physical Therapy Assessment Goals Two Impairment Decreased sitting tolerance due to pain Impairment Can't sit for more than 10' due to back. Short Term Goal (STG) Improve LE mobility (tight hamstrings) and if tolerated neural mobility. 03/16/24: added standing bottoms up active HS stretch ( hands on step, knee ext). 05/20/24: progressing increased HS mobility: PROM 100 deg R, 92 deg L, AROM 90 deg R, 86deg L 07/07/24: PSLR: 70 deg's R, 80 deg's L. 08/13/24: tight but not painful HS during deadlift HEP today. STG Duration 08/21/24 update 08/13/24 Retirement Goal (LTG) Pt will be able to improve functional sitting of 30-60' with modification of sitting or performing sitting mobility ex's to decrease pain. 04/09/2024 Patient reports sitting for one hour, but with increased ankle pain post, which decreased by 1/2 post manual therapy and and exercise. 04/27/24: Sitting in morning 10', in evening sit for 1 hr. 06/01/24: sitting early am sitting after wake up awaiting coffee 10 min before need stand, later am and later peak of day 4-430 takes Tylenol and Oxy to give relief. 06/18/24: slow progress: can sit approx 10 min drinking coffee have to stand up. 07/02/24: PRogressing: Able to sit 15 min before needs to stand due to discomfort. So elevates work station and continues work then when needed stops and dose stretching and helps provide relief then returns. 07/07/24: Sitting tolerance is 15'-60', standing tolerance 1-2 hrs before having to sit. LTG Duration 07/24/24 (07/07/24: MET GOAL) One Impairment Lacks appropriate self care HEP Impairment Pt goal: - core and gluteal strength and balance. Be able to lift from 30 to 45. - Can't sit for more than 10' due to back (tight hamstrings) . - independent in HEP. Short Term Goal (STG) Will be instructed in HEP for balance and nelda core strengthening ex's to support therapy services provided in clinic. 03/09/24: NAM 50/56, TInetti 14/16. 03/16/24: reviewed deadbug, bridge /c hip abd #3 TB, resisted lateral stepping, repeated step up- L>R glut med /pirifor weakness. 06/01/24: HEP stationary bike, stretching: down dog, bridge, lifts 30# more stretching , child's pose, HS stretch supine, squat<> stand into over head lift 10# DB tiring no added pain 5 reps. lift increased 20# each UE. 06/18/24: NBOS stride stance uneven surface standing pull downs, sit>stand into over head press 5# DB BUE. 07/02/24: initiated corner balance tandem and SLS, recheck to add to HEP next tx. 07/07/24: HEP of corner standing balance ex's (EC standing on foam, and marching on level), tandem stance EO. STG Duration 08/21/24 progressing Retirement Goal (LTG) Pt will be independent with HEP of general LE strengthening and hip ROM ex's with the goal of improving pt 's perception of safety with gait. 03/16/24: progressing:bridge /c hip abd #3 TB, resisted lateral stepping, repeated step up- L>R glut med/pirifor weakness. 04/07/2024 Seated hip abd with band added to HEP 04/09/2024 Added stretching HS /c AP, and AROM knee flexion to HEP 04/16/24: HEP: Hip strengthening: hip AB/AD (sup & sidelie), Clamshell/Reverse clamshell, SLR, Bridge. 05/20/24: adde oblique isometric paloff press 06/01/24: initiated prone LE ext , reviewed doorway hip flexor stretch. 06/18/24: NBOS stride stance uneven surface standing pull downs, sit>stand into over head press 5# DB BUE. 07/24/24: HEP: Verbal instruction to do strengthening L hip: Supine: franci BKFO w/TB, hip flex with assist of belt. Sidelie: hip AB/AD. Sitting: hip IR/ER. 07/30/24: added LAQ band, ankle AROM R/ TB L. 08/17/2024 Glute med isometric standing and stepping lateral with level one band to HEP LTG Duration 10/02/24 [id number] Assessment Summary Assessment Patient reports he always feels better post exercise. SLS left LE improved post glute med activation to 4 sec from less than one second prior to activation, right LE unchanged. Stiffness in hamstrings and right piriformis persists as does c/ o pain post sitting 10 minutes . Patient did comment the cushion from last session was good. Physical Therapy Plan Frequency and Duration Frequency of Treatment 2x/Week Duration of treatment (weeks) 12 Plan of Care Start Date 07/07/24 Plan of Care End Date 10/02/24 Next Visit Focus/Plan Next Note Type Treatment Note Next Visit Plan See Precautions spinal implant R low back. Use KX modifier . Continue incorporated strength HEP seen below and progress balance activities toward goal #1. PT recommendation Next: Issue hot/cold handout for nighttime pain. Recheck ankle ad LAQ HEP initiated, Add: Trial lunges near rail for progression strength and bal uneven surface. Continue sport cord uneven surface. Review general LE strengthening (hip L flex/ER/IR, franci AD). Monitor for pt causing nerve irritation and modify as needed: HS stretch, hip flexor stretch, prone LE ext and uneven surface semi tandem UE ext. Progress: Functional balance training, sport cord, uneven surface walking, and as tolerated Core strengthening ( NO lumbar rot/SB due to surgical hx). POC: Decrease pain franci LB/ hips & Core/hip stabilization/ strengthening; painfree hip mobility ex's; LB/hip ST; transfer training (hip hinging ); FOCUS ON: SELF pain mgmt; ADLs; improve balance.
--- NOTE | 2024-08-20 17:03 | PT.OTN ---
Current Diagnoses Other chronic pain (08/20/24) Low back pain, unspecified (08/20/24) Neuralgia and neuritis, unspecified (08/20/24) Other specified postprocedural states (08/20/24) Physical Therapy Treatment Note PT-OP-A Visit Information Start: 03/05/24 16:26 Freq: Status: Active Protocol: Document 08/20/24 13:50 LRN (Rec: 08/20/24 14:35 LRN [id number]) Out-Patient Physical Therapy Visit Information Visit Information Visit Type Progress Note Visit Start Time 13:50 Visit Stop Time 14:33 Visit Number Evaluation Information Evaluation Date 03/06/24 Precautions Precautions TAPE ALLERGY. PMH: Anterior L YANELY-07/20, No Bending Lifting Twisting (told after SI lock surgery - R 10/04/2023, L 01/18) - told recover time after surgery 6 months by different physician. PT-OP-B Current Condition Start: 03/05/24 16:26 Freq: Status: Active Protocol: Document 03/06/24 11:18 LRN (Rec: 03/06/24 12:21 LRN [id number]) Current Condition History of Current Condition Onset Date 10/2023 Current Complaints SI pain, lateral hip and posterior hip/pelvic pain History of Current Condition Pt reportedly has had a sequence of surgeries in [place], starting 8 yrs ago and hasn't been able to get back into condition since. Last 2 surgeries were SI locks/ fusions with pinnings R side Sep 2023, L side 12/2023. Has pain on both sides different than prior to surgery. Expected outcome was relief of pain with transition (most standing up). His complaints now are pain that wakes him up in the morning, lateral hip and lateral/posterior pelvic pain. LBP starts later in the day. Pt moved to [facility] Aug 2023. 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 Prior Treatments and Tests Post surgical rehab in [place] after each SI lock/ fusion surgeries, both inpt and outpt rehab. Treatment Goals Patient/Caregiver Goals Pt goal: - core and gluteal strengthening and balance training. Be able to lift from 30-45 lbs. - Sit for more than 10' due to back (tight hamstrings). - independent in HEP. Current Functional Impairments (Reported) Functional Limitations- ADL's Stationary bike 6x/week - 15'/ day. 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 PT-OP-C Subjective Start: 03/05/24 16:26 Freq: Status: Active Protocol: Document 08/20/24 13:50 LRN (Rec: 08/20/24 14:35 LRN [id number]) OP-PT Subjective Patient Comments Patient Comments Did the hot/cold with sauna, but didn't notice anything right away, but hasn't been consistent. Today hurts a lot , had to lie down on floor to let nerves calm down, took tylenol and oxycodone and felt functional again. Currently pain is rated 4/10 (was 9/10 a couple hours ago). Patient Questionnaires Foot & Ankle Ability Measure- ADL and Sports FAAM-ADL Score 41 FAAM-ADL Impairment 40 to 59% Impaired (Score 33- 49) Lower Extremity Functional Scale LEFS Score 19 LEFS Impairment 60 to 79% Impaired (Score 17- 31) Oswestry Low Back Index Oswestry Score 18, unanswered 4 questions. PT-OP-H Neuro Start: 03/05/24 16:26 Freq: Status: Active Protocol: Document 04/14/24 13:47 LRN (Rec: 04/14/24 16:25 LRN [id number]) Sensation Evaluation Location Details Right Lower Leg Light Touch Impaired Comments Summary Comments Decreased sensation of R lower leg from the top of the leg brace distally and from briscoe to brace upright stay. PT-OP-J Posture/Palpation/Skin Start: 03/05/24 16:26 Freq: Status: Active Protocol: Document 03/06/24 11:18 LRN (Rec: 03/06/24 12:21 LRN [id number]) Posture Evaluation Position Standing Head/C-Spine Posture Forward Head T-Spine Posture Increased Kyphosis L-Spine Posture Flattened Shoulder Posture (R) Elevated Comments Posture Comments Head shifted left, R shoulder elevated, protruding R ACJ, very slight anterior pelvic tilt, wide stance. Palpation Assessment Location Low back Palpation Location L paraspinasl ~T6-T12 Palpation Findings Muscle Guarding PT-OP-K Range of Motion Start: 03/05/24 16:26 Freq: Status: Active Protocol: Document 07/07/24 11:19 LRN (Rec: 07/07/24 12:43 LRN [id number]) Hip Goniometric Range of Motion Hip Right Active Testing Position Supine Straight Leg Raise 70 Left Active Testing Position Supine Straight Leg Raise 80 Comments Hip replacement side. Cramping more in L side. PT-OP-M Strength Start: 03/05/24 16:26 Freq: Status: Active Protocol: Document 03/06/24 11:18 LRN (Rec: 03/06/24 12:21 LRN [id number]) Trunk Strength Trunk Manual Muscle Testing Core Stabilization Mild to moderate loss of core stability as noted with MMT of LE's (primarily with flex and rotation). Hip Strength Hip Manual Muscle Testing Right Abduction 4 Good Adduction 2- Poor- Comments Hip strength is 5/5 except as indicated above. Left Flexion (L2) 4+ Good+ Adduction 2 Poor External Rotation 3 Fair Internal Rotation 3 Fair Comments Hip strength is 5/5 except as indicated above. PT-OP-Q Treatments Start: 03/05/24 16:26 Freq: Status: Active Protocol: Document 08/20/24 13:50 LRN (Rec: 08/20/24 14:35 LRN [id number]) Cardio Equipment Recumbent Bicycle Duration (Minutes) 14 Resistance 6 Seat Position 8 Other Patient initiated Therapeutic Exercises Supine Exercises hamstring stretch Supine Exercise Name Hamstring/LE neural stretch Side bilateral Equipment Used L: wedge and multi-colored roll bolster; R: Reps/Minutes 8' Comments Much extra time to determine max tolerated position and tolerated stretch. Standing Exercises Standing posture awareness Standing Exercise Name Correcting unsupported standing posture Reps/Minutes 3' Comments Correcting sway back posturing . Self-Care/Home Management Treatment Education Other Education Reviewed activities that may be causing increased LB/LE pain (bending, lifting, moving objects), and positioning for sitting and sleeping at night . Discussed use of waffle pillow for sitting for mvmt to improve sitting tolerance as pt reports was previously discussed with Kari Nguyen, PT. Discussed mattress age and firmness (better firm than soft) and recommened pt look for mattress that may have ability for temp variation and vibration/massage. Activities Self-Care/Home Management Activities Issued & reviewed self care hot/cold treatment for edema/ pain mgmt. PT-OP-T Assessment and Plan Start: 03/05/24 16:26 Freq: Status: Active Protocol: Document 08/20/24 13:50 LRN (Rec: 08/20/24 14:35 LRN [id number]) Physical Therapy Assessment Rehab Potential Rehabilitation Potential Fair Evaluation Complexity Number of Personal Factors/Comorbidities 3 or More Number of Body Systems Impaired 4 or More Impairments Impairments Activity Tolerance,Balance, Gait,Pain,ROM,Strength Goals Three Impairment Decreased functional strength for performing home activities of lifting. Impairment Pt goal: - core and gluteal strength and balance. Be able to lift from 30 to 45. - Can't sit for more than 10' due to back (tight hamstrings) . - independent in HEP. Short Term Goal (STG) Pt will be educated in proper body mechanics for DLS and Mtz to Safe Movement. 04/02/24: Pt training/ education in body mechanics for ADLs & Proper Posture for Mtz to Safe Movement. STG Duration 4 wks-04/03/24 (04/02/24: MET GOAL) Local Operator Goal (LTG) Pt will be able to tolerate lifting 30#-45# with modification of lifting technique for functional activities at home. 03/16/24: incorporated straight back hip hinge in mirror deadlift 20# (2-10# DB). 05/20/24: progressing 30#: 2- 15# DB deadlift good hip hinge straight back painfree. : 10#DB BUE deadlift no pain good mechanics. 06/23/24: Pt reporting moving 40# heating pellets from stack to handtruck and into his home. 07/02/24: GOAL MET: able to lift 25lb wts in each UE. LTG Duration 07/24/24 (GOAL MET: 07/02/24) Two Impairment Decreased sitting tolerance due to pain Impairment Can't sit for more than 10' due to back. Short Term Goal (STG) Improve LE mobility (tight hamstrings) and if tolerated neural mobility. 03/16/24: added standing bottoms up active HS stretch ( hands on step, knee ext). 05/20/24: progressing increased HS mobility: PROM 100 deg R, 92 deg L, AROM 90 deg R, 86deg L 07/07/24: PSLR: 70 deg's R, 80 deg's L. 08/13/24: tight but not painful HS during deadlift HEP today. 08/20/24: Combination of sit & stand max is 10 minutes, static sitting for only 10 minutes. STG Duration 08/21/24 no change in sitting tolerance ability Local Operator Goal (LTG) Pt will be able to improve functional sitting of 30-60' with modification of sitting or performing sitting mobility ex's to decrease pain. 04/09/2024 Patient reports sitting for one hour, but with increased ankle pain post, which decreased by 1/2 post manual therapy and and exercise. 04/27/24: Sitting in morning 10', in evening sit for 1 hr. 06/01/24: sitting early am sitting after wake up awaiting coffee 10 min before need stand, later am and later peak of day 4-430 takes Tylenol and Oxy to give relief. 06/18/24: slow progress: can sit approx 10 min drinking coffee have to stand up. 07/02/24: PRogressing: Able to sit 15 min before needs to stand due to discomfort. So elevates work station and continues work then when needed stops and dose stretching and helps provide relief then returns. 07/07/24: Sitting tolerance is 15'-60', standing tolerance 1-2 hrs before having to sit. LTG Duration 07/24/24 (07/07/24: MET GOAL) One Impairment Lacks appropriate self care HEP Impairment Pt goal: - core and gluteal strength and balance. Be able to lift from 30 to 45. - Can't sit for more than 10' due to back (tight hamstrings) . - independent in HEP. Short Term Goal (STG) Will be instructed in HEP for balance and nelda core strengthening ex's to support therapy services provided in clinic. 03/09/24: CYRIL 50/56, Radha /. 03/16/24: reviewed deadbug, bridge /c hip abd #3 TB, resisted lateral stepping, repeated step up- L>R glut med /pirifor weakness. 06/01/24: HEP stationary bike, stretching: down dog, bridge, lifts 30# more stretching , child's pose, HS stretch supine, squat<> stand into over head lift 10# DB tiring no added pain 5 reps. lift increased 20# each UE. 06/18/24: NBOS stride stance uneven surface standing pull downs, sit>stand into over head press 5# DB BUE. 07/02/24: initiated corner balance tandem and SLS, recheck to add to HEP next tx. 07/07/24: HEP of corner standing balance ex's (EC standing on foam, and marching on level), tandem stance EO. STG Duration 08/21/24 progressing (need HEP core strengthening) Local Operator Goal (LTG) Pt will be independent with HEP of general LE strengthening and hip ROM ex's with the goal of improving pt 's perception of safety with gait. 03/16/24: progressing:bridge /c hip abd #3 TB, resisted lateral stepping, repeated step up- L>R glut med/pirifor weakness. 04/07/2024 Seated hip abd with band added to HEP 04/09/2024 Added stretching HS /c AP, and AROM knee flexion to HEP 04/16/24: HEP: Hip strengthening: hip AB/AD (sup & sidelie), Clamshell/Reverse clamshell, SLR, Bridge. 05/20/24: adde oblique isometric paloff press 06/01/24: initiated prone LE ext , reviewed doorway hip flexor stretch. 06/18/24: NBOS stride stance uneven surface standing pull downs, sit>stand into over head press 5# DB BUE. 07/24/24: HEP: Verbal instruction to do strengthening L hip: Supine: franci BKFO w/TB, hip flex with assist of belt. Sidelie: hip AB/AD. Sitting: hip IR/ER. 07/30/24: added LAQ band, ankle AROM R/ TB L. 08/17/2024 Glute med isometric standing and stepping lateral with level one band to HEP LTG Duration 10/02/24 progressing (need update of HEP) Assessment Summary Assessment Pt is a 74 yo male who is s/p franci SI fusion/lock (R-10/19, L -01/18) with pain in franci hips worse first in AM; franci LBP ( sacral level) worse in pm, bilateral ankle pain, franci foot neuropathy, R drop foot, decr 'd hip mobility, weakness of the hips/core. The pt continues to experience franci hip and LBP that limits his sitting ability; no reported improvement in sitting tolerance. Pt has been progressed on his HEP, and needs review for clarity of ex 's to continue when discharged . Pain may be lessened if he can commit to proper body mechanics and possibly changing his sleeping mattress , as he is most uncomfortable in the mornings. Physical Therapy Plan Frequency and Duration Frequency of Treatment 2x/Week Duration of treatment (weeks) 12 Plan of Care Start Date 07/07/24 Plan of Care End Date 10/02/24 Therapeutic Interventions Therapeutic Interventions Balance Training,Gait Training ,Home Exercise Program, Neuromuscular Re-education, Self-Care/Home Management, Therapeutic Activities, Therapeutic Exercises Next Visit Focus/Plan Next Note Type Treatment Note Next Visit Plan 1-[address] pt on HEP, unless function improves significantly, then DC to HEP . Next: Pt to complete JAYMIE (4 questions backside unanswered) , review his HEP (requested pt bring in all ex's issued) and consolidate for important ex' s to improve LE strength, mobility and balance.
--- NOTE | 2024-08-25 12:20 | PT.OTN ---
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 PMH: Anterior L YANELY-07/20, No Bending Lifting Twisting (told after SI lock surgery - R 10/04/2023, L 01/18) - told recover time after surgery 6 months by different physician. PT-OP-B Current Condition Start: 03/05/24 16:26 Freq: Status: Active Protocol: Document 03/06/24 11:18 LRN (Rec: 03/06/24 12:21 LRN [id number]) Current Condition History of Current Condition Onset Date 10/2023 Current Complaints SI pain, lateral hip and posterior hip/pelvic pain History of Current Condition Pt reportedly has had a sequence of surgeries in [place], starting 8 yrs ago and hasn't been able to get back into condition since. Last 2 surgeries were SI locks/ fusions with pinnings R side Sep 2023, L side 12/2023. Has pain on both sides different than prior to surgery. Expected outcome was relief of pain with transition (most standing up). His complaints now are pain that wakes him up in the morning, lateral hip and lateral/posterior pelvic pain. LBP starts later in the day. Pt moved to [facility] Aug 2023. 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 Prior Treatments and Tests Post surgical rehab in [place] after each SI lock/ fusion surgeries, both inpt and outpt rehab. Treatment Goals Patient/Caregiver Goals Pt goal: - core and gluteal strengthening and balance training. Be able to lift from 30-45 lbs. - Sit for more than 10' due to back (tight hamstrings). - independent in HEP. Current Functional Impairments (Reported) Functional Limitations- ADL's Stationary bike 6x/week - 15'/ day. 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 PT-OP-C Subjective Start: 03/05/24 16:26 Freq: Status: Active Protocol: Document 08/25/24 11:35 SP (Rec: 08/25/24 12:31 SP [id number]) OP-PT Subjective Patient Comments Patient Comments Pt brought HEP HOs to [facility], [facility] . REports still has pain the affects his sleep <6hrs, only doing light due activities. Having peristhesia in R Lower leg/calf tight arrival. Started taking Magnesium and helping with lessening leg cramping. Patient Questionnaires Oswestry Low Back Index Oswestry Score 33 Oswestry Impairment 20 to 39% Impaired (Score 20- 39) PT-OP-H Neuro Start: 03/05/24 16:26 Freq: Status: Active Protocol: Document 04/14/24 13:47 LRN (Rec: 04/14/24 16:25 LRN [id number]) Sensation Evaluation Location Details Right Lower Leg Light Touch Impaired Comments Summary Comments Decreased sensation of R lower leg from the top of the leg brace distally and from briscoe to brace upright stay. PT-OP-J Posture/Palpation/Skin Start: 03/05/24 16:26 Freq: Status: Active Protocol: Document 03/06/24 11:18 LRN (Rec: 03/06/24 12:21 LRN [id number]) Posture Evaluation Position Standing Head/C-Spine Posture Forward Head T-Spine Posture Increased Kyphosis L-Spine Posture Flattened Shoulder Posture (R) Elevated Comments Posture Comments Head shifted left, R shoulder elevated, protruding R ACJ, very slight anterior pelvic tilt, wide stance. Palpation Assessment Location Low back Palpation Location L paraspinasl ~T6-T12 Palpation Findings Muscle Guarding PT-OP-K Range of Motion Start: 03/05/24 16:26 Freq: Status: Active Protocol: Document 07/07/24 11:19 LRN (Rec: 07/07/24 12:43 LRN [id number]) Hip Goniometric Range of Motion Hip Right Active Testing Position Supine Straight Leg Raise 70 Left Active Testing Position Supine Straight Leg Raise 80 Comments Hip replacement side. Cramping more in L side. PT-OP-M Strength Start: 03/05/24 16:26 Freq: Status: Active Protocol: Document 03/06/24 11:18 LRN (Rec: 03/06/24 12:21 LRN [id number]) Trunk Strength Trunk Manual Muscle Testing Core Stabilization Mild to moderate loss of core stability as noted with MMT of LE's (primarily with flex and rotation). Hip Strength Hip Manual Muscle Testing Right Abduction 4 Good Adduction 2- Poor- Comments Hip strength is 5/5 except as indicated above. Left Flexion (L2) 4+ Good+ Adduction 2 Poor External Rotation 3 Fair Internal Rotation 3 Fair Comments Hip strength is 5/5 except as indicated above. PT-OP-Q Treatments Start: 03/05/24 16:26 Freq: Status: Active Protocol: Document 08/25/24 11:35 SP (Rec: 08/25/24 12:31 SP [id number]) Therapeutic Exercises Supine Exercises BKFO Resistance 1 leg only at time Equipment Used Lev 2 TB Reps/Minutes 10x 2 Comments cued slower pacing, L hip weaker-ed TA level pelvis SLR Supine Exercise Name SLR lift Side bilateral Resistance AROM Equipment Used opp LE bent Reps/Minutes 2x 10 Comments good hip flexor engagment, TFL tiring, L leg weaker Prone Exercises downward dog Prone Exercise Name review self HEP Reps/Minutes 20 SH x1 Comments pre prone on elbows PRERNA Prone Exercise Name self HEP reviewed Side bilateral Reps/Minutes 20 sec Comments demos tall on elbows to elongate spine pnfree range Sidelying Exercises Hip AB Sidelying Exercise Name R sidelie Side left Resistance TB #1 added Reps/Minutes 10 x 2 Comments good form muscle tiring Hip AD Sidelying Exercise Name sidelie Side bilateral Resistance AROM Equipment Used opp LE support on stool Reps/Minutes 10 x2 Comments 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, 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 Standing Exercises glute med isometric Standing Exercise Name HEP Side bilateral Reps/Minutes 50 seconds each side Comments SLS left LE increased to 4 sec right LE continues to be less than one sec resisted side stepping Standing Exercise Name fwd, bwd, Side steppinng HEP Side bilateral Equipment Used level one band at shins Reps/Minutes 2 min Comments verbal cues to avoid toeing out bottoms up Standing Exercise Name HS stretch- Side bilateral Equipment Used hands on chair and hands on thighs Reps/Minutes X4 and X 15 Comments poor form with hands on chair, improved with hands on thighs Other Exercises down dog Other Exercise Name Patient initiated good form Reps/Minutes 40 to 60 second Neuro Re-Education Treatment Balance Activities SLS Details still challenge Surface floor Equipment wall contact Comments 1-2 sec each LE corner balance Details tandem stance Comments 15 sec hold PT-OP-T Assessment and Plan Start: 03/05/24 16:26 Freq: Status: Active Protocol: Document 08/25/24 11:35 SP (Rec: 08/25/24 12:31 SP [id number]) Physical Therapy Assessment Goals Three Impairment Decreased functional strength for performing home activities of lifting. Impairment Pt goal: - core and gluteal strength and balance. Be able to lift from 30 to 45. - Can't sit for more than 10' due to back (tight hamstrings) . - independent in HEP. Short Term Goal (STG) Pt will be educated in proper body mechanics for DLS and Mtz to Safe Movement. 04/02/24: Pt training/ education in body mechanics for ADLs & Proper Posture for Mtz to Safe Movement. STG Duration 4 wks-04/03/24 (04/02/24: MET GOAL) Franchise Broker Goal (LTG) Pt will be able to tolerate lifting 30#-45# with modification of lifting technique for functional activities at home. 03/16/24: incorporated straight back hip hinge in mirror deadlift 20# (2-10# DB). 05/20/24: progressing 30#: 2- 15# DB deadlift good hip hinge straight back painfree. : 10#DB BUE deadlift no pain good mechanics. 06/23/24: Pt reporting moving 40# heating pellets from stack to handtruck and into his home. 07/02/24: GOAL MET: able to lift 25lb wts in each UE. LTG Duration 07/24/24 (GOAL MET: 07/02/24) Two Impairment Decreased sitting tolerance due to pain Impairment Can't sit for more than 10' due to back. Short Term Goal (STG) Improve LE mobility (tight hamstrings) and if tolerated neural mobility. 03/16/24: added standing bottoms up active HS stretch ( hands on step, knee ext). 05/20/24: progressing increased HS mobility: PROM 100 deg R, 92 deg L, AROM 90 deg R, 86deg L 07/07/24: PSLR: 70 deg's R, 80 deg's L. 08/13/24: tight but not painful HS during deadlift HEP today. 08/20/24: Combination of sit & stand max is 10 minutes, static sitting for only 10 minutes. STG Duration 08/21/24 no change in sitting tolerance ability Franchise Broker Goal (LTG) Pt will be able to improve functional sitting of 30-60' with modification of sitting or performing sitting mobility ex's to decrease pain. 04/09/2024 Patient reports sitting for one hour, but with increased ankle pain post, which decreased by 1/2 post manual therapy and and exercise. 04/27/24: Sitting in morning 10', in evening sit for 1 hr. 06/01/24: sitting early am sitting after wake up awaiting coffee 10 min before need stand, later am and later peak of day 4-430 takes Tylenol and Oxy to give relief. 06/18/24: slow progress: can sit approx 10 min drinking coffee have to stand up. 07/02/24: PRogressing: Able to sit 15 min before needs to stand due to discomfort. So elevates work station and continues work then when needed stops and dose stretching and helps provide relief then returns. 07/07/24: Sitting tolerance is 15'-60', standing tolerance 1-2 hrs before having to sit. LTG Duration 07/24/24 (07/07/24: MET GOAL) One Impairment Lacks appropriate self care HEP Impairment Pt goal: - core and gluteal strength and balance. Be able to lift from 30 to 45. - Can't sit for more than 10' due to back (tight hamstrings) . - independent in HEP. Short Term Goal (STG) Will be instructed in HEP for balance and nelda core strengthening ex's to support therapy services provided in clinic. 03/09/24: NAM 50/56, Radha 14/16. 03/16/24: reviewed deadbug, bridge /c hip abd #3 TB, resisted lateral stepping, repeated step up- L>R glut med /pirifor weakness. 06/01/24: HEP stationary bike, stretching: down dog, bridge, lifts 30# more stretching , child's pose, HS stretch supine, squat<> stand into over head lift 10# DB tiring no added pain 5 reps. lift increased 20# each UE. 06/18/24: NBOS stride stance uneven surface standing pull downs, sit>stand into over head press 5# DB BUE. 07/02/24: initiated corner balance tandem and SLS, recheck to add to HEP next tx. 07/07/24: HEP of corner standing balance ex's (EC standing on foam, and marching on level), tandem stance EO. STG Duration 08/21/24 progressing (need HEP core strengthening) Retirement Goal (LTG) Pt will be independent with HEP of general LE strengthening and hip ROM ex's with the goal of improving pt 's perception of safety with gait. 03/16/24: progressing:bridge /c hip abd #3 TB, resisted lateral stepping, repeated step up- L>R glut med/pirifor weakness. 04/07/2024 Seated hip abd with band added to HEP 04/09/2024 Added stretching HS /c AP, and AROM knee flexion to HEP 04/16/24: HEP: Hip strengthening: hip AB/AD (sup & sidelie), Clamshell/Reverse clamshell, SLR, Bridge. 05/20/24: adde oblique isometric paloff press 06/01/24: initiated prone LE ext , reviewed doorway hip flexor stretch. 06/18/24: NBOS stride stance uneven surface standing pull downs, sit>stand into over head press 5# DB BUE. 07/24/24: HEP: Verbal instruction to do strengthening L hip: Supine: franci BKFO w/TB, hip flex with assist of belt. Sidelie: hip AB/AD. Sitting: hip IR/ER. 07/30/24: added LAQ band, ankle AROM R/ TB L. 08/17/2024 Glute med isometric standing and stepping lateral with level one band to HEP LTG Duration 10/02/24 progressing (need update of HEP) Assessment Summary Assessment Pt good effort during ther ex in sidelying. Tx focused on mobility and strengthening HEP condensing frequency vs deleting exercises for pt tolerance and compliance not overwhelming. Will continue to progress condensing next tx and incorporating progressive balance into HEP, request of pt. Physical Therapy Plan Frequency and Duration Frequency of Treatment 2x/Week Duration of treatment (weeks) 12 Plan of Care Start Date 07/07/24 Plan of Care End Date 10/02/24 Therapeutic Interventions Therapeutic Interventions Balance Training,Gait Training ,Home Exercise Program, Neuromuscular Re-education, Self-Care/Home Management, Therapeutic Activities, Therapeutic Exercises Next Visit Focus/Plan Next Note Type Treatment Note Next Visit Plan 1-[address] pt on HEP, unless function improves significantly, then DC to HEP . Next: Pt to complete JAYMIE (4 questions backside unanswered) , review his HEP (requested pt bring in all ex's issued) and consolidate for important ex' s to improve LE strength, mobility and balance.
--- NOTE | 2024-09-15 16:27 | PT.OTN ---
Current Diagnoses Other chronic pain (09/15/24) Low back pain, unspecified (09/15/24) Neuralgia and neuritis, unspecified (09/15/24) Other specified postprocedural states (09/15/24) Physical Therapy Treatment Note PT-OP-A Visit Information Start: 03/05/24 16:26 Freq: Status: Active Protocol: Document 09/15/24 14:37 LRN (Rec: 09/15/24 16:26 LRN [id number]) Out-Patient Physical Therapy Visit Information Visit Information Visit Type Treatment Note Visit Start Time 14:37 Visit Stop Time 15:27 Visit Number (03/06 with PN) Evaluation Information Evaluation Date 03/06/24 Precautions Precautions TAPE ALLERGY. PMH: Anterior L YANELY-07/20, No Bending Lifting Twisting (told after SI lock surgery - R 10/04/2023, L 01/18) - told recover time after surgery 6 months by different physician. PT-OP-B Current Condition Start: 03/05/24 16:26 Freq: Status: Active Protocol: Document 03/06/24 11:18 LRN (Rec: 03/06/24 12:21 LRN [id number]) Current Condition History of Current Condition Onset Date 10/2023 Current Complaints SI pain, lateral hip and posterior hip/pelvic pain History of Current Condition Pt reportedly has had a sequence of surgeries in [place], starting 8 yrs ago and hasn't been able to get back into condition since. Last 2 surgeries were SI locks/ fusions with pinnings R side Sep 2023, L side 12/2023. Has pain on both sides different than prior to surgery. Expected outcome was relief of pain with transition (most standing up). His complaints now are pain that wakes him up in the morning, lateral hip and lateral/posterior pelvic pain. LBP starts later in the day. Pt moved to [place] Aug 2023. 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 Prior Treatments and Tests Post surgical rehab in [place] after each SI lock/ fusion surgeries, both inpt and outpt rehab. Treatment Goals Patient/Caregiver Goals Pt goal: - core and gluteal strengthening and balance training. Be able to lift from 30-45 lbs. - Sit for more than 10' due to back (tight hamstrings). - independent in HEP. Current Functional Impairments (Reported) Functional Limitations- ADL's Stationary bike 6x/week - 15'/ day. 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 PT-OP-C Subjective Start: 03/05/24 16:26 Freq: Status: Active Protocol: Document 09/15/24 14:37 LRN (Rec: 09/15/24 16:26 LRN [id number]) OP-PT Subjective Patient Comments Patient Comments States he is not doing well. Thinks his goal should be maintaining mobility. Hurts to sit, hurts to stand. 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 States he has balance ex's and has a standing balance board. Patient Questionnaires Lower Extremity Functional Scale LEFS Score 26 LEFS Impairment 60 to 79% Impaired (Score 17- 31) Oswestry Low Back Index Oswestry Score 58 Oswestry Impairment 40 to 59% Impaired (Score 40- 59) PT-OP-H Neuro Start: 03/05/24 16:26 Freq: Status: Active Protocol: Document 04/14/24 13:47 LRN (Rec: 04/14/24 16:25 LRN [id number]) Sensation Evaluation Location Details Right Lower Leg Light Touch Impaired Comments Summary Comments Decreased sensation of R lower leg from the top of the leg brace distally and from briscoe to brace upright stay. PT-OP-J Posture/Palpation/Skin Start: 03/05/24 16:26 Freq: Status: Active Protocol: Document 03/06/24 11:18 LRN (Rec: 03/06/24 12:21 LRN [id number]) Posture Evaluation Position Standing Head/C-Spine Posture Forward Head T-Spine Posture Increased Kyphosis L-Spine Posture Flattened Shoulder Posture (R) Elevated Comments Posture Comments Head shifted left, R shoulder elevated, protruding R ACJ, very slight anterior pelvic tilt, wide stance. Palpation Assessment Location Low back Palpation Location L paraspinasl ~T6-T12 Palpation Findings Muscle Guarding PT-OP-K Range of Motion Start: 03/05/24 16:26 Freq: Status: Active Protocol: Document 07/07/24 11:19 LRN (Rec: 07/07/24 12:43 LRN [id number]) Hip Goniometric Range of Motion Hip Right Active Testing Position Supine Straight Leg Raise 70 Left Active Testing Position Supine Straight Leg Raise 80 Comments Hip replacement side. Cramping more in L side. PT-OP-M Strength Start: 03/05/24 16:26 Freq: Status: Active Protocol: Document 03/06/24 11:18 LRN (Rec: 03/06/24 12:21 LRN [id number]) Trunk Strength Trunk Manual Muscle Testing Core Stabilization Mild to moderate loss of core stability as noted with MMT of LE's (primarily with flex and rotation). Hip Strength Hip Manual Muscle Testing Right Abduction 4 Good Adduction 2- Poor- Comments Hip strength is 5/5 except as indicated above. Left Flexion (L2) 4+ Good+ Adduction 2 Poor External Rotation 3 Fair Internal Rotation 3 Fair Comments Hip strength is 5/5 except as indicated above. PT-OP-Q Treatments Start: 03/05/24 16:26 Freq: Status: Active Protocol: Document 09/15/24 14:37 LRN (Rec: 09/15/24 16:26 LRN [id number]) Cardio Equipment Recumbent Bicycle Duration (Minutes) 8 Resistance 6 Seat Position 8 Other Patient initiated 7' pre tx- not helping decrease lower leg pain & tingling Therapeutic Exercises Supine Exercises Piriformis stretch Supine Exercise Name from hooklying Side bilateral Reps/Minutes 60 sec X 2 each LE bridge /c hip abd Supine Exercise Name Bridge Reps/Minutes 10x Comments Pt had pain for first few reps Prone Exercises Plank on wedge Prone Exercise Name Pt showing ex he does at home of 1/2 plank (hands/knees) Reps/Minutes 3x Comments Recommended pt not perform. downward dog Prone Exercise Name Pt verbally reports doing this ex that helps to relieve pain . PRERNA Side bilateral Reps/Minutes 20 sec Comments demos tall on elbows to elongate spine pnfree range Sitting Exercises Resisted elbow curls Sitting Exercise Name Core stab Side bilateral Equipment Used 5# Reps/Minutes 10x Comments Cued no pain to start w/good posture & 10 reps, building up reps tolerance D2 shoulder diagonal Sitting Exercise Name D2 Flex/Ext Equipment Used L2 TB Reps/Minutes 2x Comments Cued no pain to start w/good posture & 10 reps, building up reps tolerance Row Sitting Exercise Name HEP issued Side bilateral Equipment Used L2 with PT holding for resistance Reps/Minutes 5x Comments Cued no pain to start w/good posture & 10 reps, building up reps tolerance Trunk rot Sitting Exercise Name HEP issued Equipment Used L2 with PT holding for resistance Reps/Minutes 5x Comments Cued no pain, to start 10 reps /small mvmts and build up tolerance seated hip IR AROM Sitting Exercise Name Seated IR stretch Side bilateral Resistance level one light blue Reps/Minutes X15 Comments Verbal cues Self-Care/Home Management Treatment Education Other Education Discussed with pt his therapy and plan of care. Pt wanting to change his goals to maintaining mobility because he is hurting more and feeling unstable on his feet. Recommended pt not do lifts, planks, crawling on boats and other activities that cause discomfort later in the day. Discussed pt could continue on his HEP and if his condition worsens he could go back to his referring physician and request PT the next year. Discusssed/ reviewed proper sitting posture and activities that could worsen his pain but not cause pain at the time performing. Pt was able to identify that he did not feel safe today walking and he was unsteady without a cane and refused standing trunk strengthening ex's, opting for sitting ex's. Activities Self-Care/Home Management Activities Issued & reviewed HEP: Core strengthgening sitting: Lumbar rot, shdr retraction, Franci elbow curls, shdr diagonals D2 Ext & Flex. PT-OP-T Assessment and Plan Start: 03/05/24 16:26 Freq: Status: Active Protocol: Document 09/15/24 14:37 LRN (Rec: 09/15/24 16:26 LRN [id number]) Physical Therapy Assessment Goals Three Impairment Decreased functional strength for performing home activities of lifting. Impairment Pt goal: - core and gluteal strength and balance. Be able to lift from 30 to 45. - Can't sit for more than 10' due to back (tight hamstrings) . - independent in HEP. Short Term Goal (STG) Pt will be educated in proper body mechanics for DLS and Mtz to Safe Movement. 04/02/24: Pt training/ education in body mechanics for ADLs & Proper Posture for Mtz to Safe Movement. STG Duration 4 wks-04/03/24 (04/02/24: MET GOAL) Group Home Goal (LTG) Pt will be able to tolerate lifting 30#-45# with modification of lifting technique for functional activities at home. 03/16/24: incorporated straight back hip hinge in mirror deadlift 20# (2-10# DB). 05/20/24: progressing 30#: 2- 15# DB deadlift good hip hinge straight back painfree. : 10#DB BUE deadlift no pain good mechanics. 06/23/24: Pt reporting moving 40# heating pellets from stack to handtruck and into his home. 07/02/24: GOAL MET: able to lift 25lb wts in each UE. LTG Duration 07/24/24 (GOAL MET: 07/02/24) Two Impairment Decreased sitting tolerance due to pain Impairment Can't sit for more than 10' due to back. Short Term Goal (STG) Improve LE mobility (tight hamstrings) and if tolerated neural mobility. 03/16/24: added standing bottoms up active HS stretch ( hands on step, knee ext). 05/20/24: progressing increased HS mobility: PROM 100 deg R, 92 deg L, AROM 90 deg R, 86deg L 07/07/24: PSLR: 70 deg's R, 80 deg's L. 08/13/24: tight but not painful HS during deadlift HEP today. 08/20/24: Combination of sit & stand max is 10 minutes, static sitting for only 10 minutes. STG Duration 08/21/24 no change in sitting tolerance ability Group Home Goal (LTG) Pt will be able to improve functional sitting of 30-60' with modification of sitting or performing sitting mobility ex's to decrease pain. 04/09/2024 Patient reports sitting for one hour, but with increased ankle pain post, which decreased by 1/2 post manual therapy and and exercise. 04/27/24: Sitting in morning 10', in evening sit for 1 hr. 06/01/24: sitting early am sitting after wake up awaiting coffee 10 min before need stand, later am and later peak of day 4-430 takes Tylenol and Oxy to give relief. 06/18/24: slow progress: can sit approx 10 min drinking coffee have to stand up. 07/02/24: PRogressing: Able to sit 15 min before needs to stand due to discomfort. So elevates work station and continues work then when needed stops and dose stretching and helps provide relief then returns. 07/07/24: Sitting tolerance is 15'-60', standing tolerance 1-2 hrs before having to sit. LTG Duration 07/24/24 (07/07/24: MET GOAL) One Impairment Lacks appropriate self care HEP Impairment Pt goal: - core and gluteal strength and balance. Be able to lift from 30 to 45. - Can't sit for more than 10' due to back (tight hamstrings) . - independent in HEP. Short Term Goal (STG) Will be instructed in HEP for balance and nelda core strengthening ex's to support therapy services provided in clinic. 03/09/24: NAM 50/56, Radha 14/16. 03/16/24: reviewed deadbug, bridge /c hip abd #3 TB, resisted lateral stepping, repeated step up- L>R glut med /pirifor weakness. 06/01/24: HEP stationary bike, stretching: down dog, bridge, lifts 30# more stretching , child's pose, HS stretch supine, squat<> stand into over head lift 10# DB tiring no added pain 5 reps. lift increased 20# each UE. 06/18/24: NBOS stride stance uneven surface standing pull downs, sit>stand into over head press 5# DB BUE. 07/02/24: initiated corner balance tandem and SLS, recheck to add to HEP next tx. 07/07/24: HEP of corner standing balance ex's (EC standing on foam, and marching on level), tandem stance EO. 09/03/24: added rocker board, declined HO, past semitandem shld ext. 09/15/24: HEP: Core strengthgening sitting: Lumbar rot, shdr retraction, Franci elbow curls, shdr diagonals D2 Ext & Flex. STG Duration 08/21/24 (09/07/24: MET GOAL) Kitchen Manager Goal (LTG) Pt will be independent with HEP of general LE strengthening and hip ROM ex's with the goal of improving pt 's perception of safety with gait. 03/16/24: progressing:bridge /c hip abd #3 TB, resisted lateral stepping, repeated step up- L>R glut med/pirifor weakness. 04/07/2024 Seated hip abd with band added to HEP 04/09/2024 Added stretching HS /c AP, and AROM knee flexion to HEP 04/16/24: HEP: Hip strengthening: hip AB/AD (sup & sidelie), Clamshell/Reverse clamshell, SLR, Bridge. 05/20/24: adde oblique isometric paloff press 06/01/24: initiated prone LE ext , reviewed doorway hip flexor stretch. 06/18/24: NBOS stride stance uneven surface standing pull downs, sit>stand into over head press 5# DB BUE. 07/24/24: HEP: Verbal instruction to do strengthening L hip: Supine: franci BKFO w/TB, hip flex with assist of belt. Sidelie: hip AB/AD. Sitting: hip IR/ER. 07/30/24: added LAQ band, ankle AROM R/ TB L. 08/17/2024 Glute med isometric standing and stepping lateral with level one band to HEP 09/03/24: added self calf and peroneal rolling racquetball floor, rocker board wt shift. 09/15/24: HEP: Core strengthgening sitting: Lumbar rot, shdr retraction, Franci elbow curls, shdr diagonals D2 Ext & Flex. Pt able to identify today that he is unsteady on his feet and request no standing ex's due to instability standing. LTG Duration 10/02/24 (09/15/24: MET GOAL) Assessment Summary Assessment The pt is a 74 yo male who initially presented s/p franci SI fusion/lock (R-10/19, L-01/18) with pain in franci hips worse first in AM; franci LBP (sacral level) worse in pm, bilateral ankle pain, franci foot neuropathy, R drop foot, decr' d hip mobility, weakness of the hips/core. He had progressed in strength of his back and legs to be able to perform functional activities at home, including lifting of 30-45# with a modified lift technique, and improved in his sitting tolerance to 30-60', but LE mobility/tight hamstrings persisted. He has been educated in a HEP of LE, core and balance ex's with good understanding of when he has instability with gait. 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 The pt has been progressed onto a comprehensive HEP and he appears to understand what activities/ex's might be an irritation to his back. His LE function per LEFS score and Back function per JAYMIE score is unchanged in % impaired. The pt should be more conscious of making choices with his work that will not irritate his back and cause LE pain and instability with gait. He should try continuing with his home program and in the new year, if his condition worsens we would be happy to work with this patient again. The pt is being discharged today to his HEP. Physical Therapy Plan Frequency and Duration Frequency of Treatment 2x/Week Duration of treatment (weeks) 12 Plan of Care Start Date 07/07/24 Plan of Care End Date 10/02/24 Discharge Physical Therapy Discharge Reasons Plateau in Progress Discharge Comments Thank you for your referral.
== END 2024-09-16 15:12 | disposition home or self-care (01) ==
LOC: PHYS 14:30
PROVIDERS: Family Provider Family Medicine; PCP Family Medicine; Referring Provider Family Medicine; Visit Provider Family Medicine
DX: Z98.890 Other specified postprocedural states (principal); M79.2 Neuralgia and neuritis, unspecified; M54.50 Low back pain, unspecified; G89.29 Other chronic pain
CPT/HCPCS: 97110; 97112; 97140; 97162; 97530; 97535

== ENCOUNTER → 2024-10-06 14:04 | Outpatient (CLI) | payer MEDICARE, BC, SELFPAY ==
[2024-10-06 15:05] LABS: Add Manual Diff / Slide Review NO; Basophils Absolute Auto 0 /uL (0-100); Basophils Percent Auto 0.5 % (0-2); Eosinophils Absolute Auto 200 /uL (0-450); Eosinophils Percent Auto 3.6 % (2-4); Hemoglobin 12.9 g/dL (13.5-17.5); Lymphocytes Absolute Auto 1100 /uL (1100-4500); Lymphocytes Percent Auto 18.1 % (25-40); Mean Corpuscular Hemoglobin 31.8 PG (26-34); Mean Corpuscular Volume 93.7 fL (80-100); Monocytes Absolute Auto 800 /uL (0-900); Monocytes Percent Auto 13.3 % (3-14); Neutrophils Absolute Auto 3700 /uL (1500-7000); Neutrophils Percent Auto 64.5 % (50-75); Platelet Count 253 X10^3/uL (150-400); Red Blood Cell Count 4.05 X10^6/uL (4.5-5.9); Red Cell Distribution Width 14.2 % (11.6-14.8); White Blood Cell Count 5.8 X10^3/uL (4.5-11.0)
[2024-10-06 21:15] LABS: HEMOLYSIS < 15 (0-50); Iron 40 ug/dL (49-181)
[2024-10-06 21:52] LABS: Percent Iron Saturation 16 % (20-50); Total Iron Binding Capacity 243 ug/dL (261-462); Transferrin 221 mg/dL (206-381)
[2024-10-06 22:22] LABS: Folate 11.1 ng/mL (2.76-20.0)
[2024-10-06 23:02] LABS: Vitamin B12 Reflex MMA if <400 472 pg/mL (239-931)
[2024-10-06 23:20] LABS: Hemoglobin A1C% w Est Avg Glu 5.6 % (4.0-6.0)
== END ==
PROVIDERS: Family Provider Family Medicine; PCP Family Medicine; Referring Provider Student in an Organized Health Care Education/Training Program; Visit Provider Student in an Organized Health Care Education/Training Program
DX: M79.2 Neuralgia and neuritis, unspecified (principal); Z96.89 Presence of other specified functional implants; Z98.1 Arthrodesis status; M21.379 Foot drop, unspecified foot; M54.16 Radiculopathy, lumbar region; G62.9 Polyneuropathy, unspecified; R25.2 Cramp and spasm
CPT/HCPCS: 36415; 82607; 82746; 83036; 83540; 83550; 83921; 84155; 84165; 85025

== ENCOUNTER 2024-11-09 07:03 | Day surgery (SDC) | payer MEDICARE, BC, SELFPAY ==
[2024-11-09 07:35] VITALS: BP 140/77; PULSE 60; RESP 16; TEMP 36.2; O2SAT 98
[2024-11-09] MEDS: SODIUM CHLORIDE 0.9% 1,000 ML 84 ML IV (07:45)
--- NOTE | 2024-11-09 08:17 | PM.HP.1 ---
History of Present Illness History of Present Illness Date Patient Seen: 11/09/24 Time Patient Seen: 08:17 Chief complaint: SDC Narrative: 74-year-old white male personal history of polyps presents for screening colonoscopy [facility] Medical History (Updated 11/09/24 @ 08:18 by Marko Taylor MD) Colon cancer screening (~11/09/24) Lumbar radiculopathy Foot drop Lumbar disc disease Cervical spine disease Ankle pain Anemia Hypertension Surgical History History of lumbar fusion S/P insertion of spinal cord stimulator Anesthesia Social History Smoking Status: Former smoker alcohol intake: never Meds Home Medications and Allergies Home Medications Medication Instructions Recorded Confirmed Type Parking Permit... #1 ea 02/26/24 07/09/24 Rx celecoxib 200 mg capsule (Celebrex) 200 mg PO BID Pain medication, 02/26/24 10/06/24 History backpain tamsulosin 0.4 mg capsule 0.4 mg PO DAILY Retention 02/26/24 10/06/24 History gabapentin 600 mg tablet 600 mg PO QID 04/10/24 10/06/24 History tadalafil 10 mg tablet 5 mg PO DAILY As needed 04/10/24 10/06/24 History metoprolol tartrate 25 mg tablet 25 mg PO BID Hypertension #180 tabs 08/18/24 10/06/24 Rx lidocaine 5 % topical patch 2 patch topical DAILY back pain 08/31/24 10/06/24 Rx #30 ea methocarbamol 500 mg tablet 500 mg PO BID back pain #60 tabs 09/28/24 10/06/24 Rx amitriptyline 25 mg tablet 25 mg PO DAILY #30 tabs 10/06/24 10/06/24 Rx ferrous sulfate 325 mg (65 mg 325 mg PO Q OTHER DAY #30 tabs 10/12/24 Rx iron) tablet (Iron (ferrous sulfate)) oxycodone 5 mg tablet See Rx Instructions .Route 10/20/24 Rx .COMPLEX #90 tabs sodium,potassium,mag sulfates 17.5 See Rx Instructions PO .COMPLEX 10/22/24 Rx gram-3.13 gram-1.6 gram oral soln #354 mL (Suprep Bowel Prep Kit) Allergies Allergy/AdvReac Type Severity Reaction Status Date / Time surgical tape Allergy Mild Rash Uncoded 11/09/24 07:47 Review of Systems Review of Systems ROS: Yes All systems reviewed with the patient and are negative except as otherwise documented Exam Vital Signs (past 8 hours): - 11/09/24 07:35 Temperature 97.1 F L Pulse Rate 60 Respiratory Rate 16 Blood Pressure 140/77 Pulse Oximetry 98 Oxygen Delivery Method Room Air Oxygen Delivery Method Room Air Narrative Exam Narrative: Gen: NAD, sitting comfortably in bed, appears well HEENT: Sclera are anicteric, head is normocephalic and atraumatic, trachea is midline. CV: RRR, no JVD Resp: clear to auscultation bilaterally, equal chest wall movement bilaterally Abd: soft, nontender, normoactive bowel sounds Ext: no edema, full range of motion Neuro: Cranial nerves II-XII grossly intact, no focal deficits Skin: No erythema or ecchymosis Patient has a spinal cord stimulator generator there is right lower quadrant Assessment & Plan Assessment and plan (1) Colon cancer screening: Status: Acute Assessment & Plan narrative: Patient presents for colonoscopy Risks, benefits, alternatives to colonoscopy explained, including but not limited to bowel perforation or other serious complication requiring surgery at less than 1 in 5000 colonoscopies, abdominal pain, cramping or bleeding and less than 1% of colonoscopies, and the chances that we find a diagnosis that would require further intervention of about 2%. Patient agrees to proceed. Time-Based Coding :: [TOTAL MINUTES] spent with patient and on the chart (including review of chart, obtaining history, exam, reviewing outside data, placing orders, documenting exam and treatment plan, and counseling patient) on [DATE].
--- NOTE | 2024-11-09 08:43 | PM.OP.COLON ---
Operative Date/Time/Diagnoses Date of procedure: 11/09/24 Time of procedure: 08:43 Pre-op diagnosis: Colon screening Post-op diagnosis: same Procedure & Clinicians Study performed: Screening colonoscopy Same procedure as scheduled: Yes Indications: Colon screening, personal history of polyps Surgeon: Marko Taylor Procedure Notes SCOAP/Timeout: Performed Procedure in detail: Time-out was performed. Mac was induced. Patient was placed in left lateral decubitus position. The perineum was inspected without any gross abnormality. Lubricated pediatric colonoscope was inserted and advanced to the cecum. The terminal ileum was intubated. The colonoscope was withdrawn slowly inspecting the circumference of the colon. Very small polyps may have been missed, prep quality was adequate. Retroflexed view of the rectum showed small, non prolapsed nonbleeding internal hemorrhoids. The scope was withdrawn the patient was taken to PACU in good condition. Scope withdrawal time: 8 Sedation minutes: 13 Findings: divertiulosis and internal hemorrhoids Specimen(s): none sent Complications: none Impression: Diverticulosis, internal hemorrhoids otherwise normal colon Post-procedure Recommendations: Colonoscopy in 10 years Follow up: as needed Disposition: PACU
[2024-11-09 08:46] VITALS: BP 94/51; PULSE 52; RESP 16; O2SAT 94
[2024-11-09 08:52] VITALS: BP 103/57; PULSE 58; RESP 15; O2SAT 96
[2024-11-09 08:59] VITALS: BP 110/67; PULSE 48; RESP 16; O2SAT 98
== END 2024-11-09 09:07 | disposition home or self-care (01) ==
PROVIDERS: Family Provider Family Medicine; PCP Family Medicine; Referring Provider Surgery; Visit Provider Surgery
PROC: 0DJD8ZZ Inspection of Lower Intestinal Tract, Via Natural or Artificial Opening Endoscopic (ICD-10-PCS; CPT 45378; principal; 2024-11-09 08:15)
DX: Z12.11 Encounter for screening for malignant neoplasm of colon (principal); K57.30 Diverticulosis of large intestine without perforation or abscess without bleeding; K64.8 Other hemorrhoids; I10 Essential (primary) hypertension; Z86.0100 Personal history of colon polyps, unspecified; Z98.1 Arthrodesis status; Z96.82 Presence of neurostimulator; Z87.891 Personal history of nicotine dependence
CPT/HCPCS: G0105; J2405; J2704

== ENCOUNTER → 2024-11-27 13:25 | Outpatient (CLI) | payer MEDICARE, BC, SELFPAY ==
[2024-11-27 14:46] LABS: HEMOLYSIS < 15 (0-50); Iron 71 ug/dL (49-181)
[2024-11-27 14:53] LABS: Magnesium 2.2 mg/dL (1.6-2.3)
[2024-11-27 14:57] LABS: Percent Iron Saturation 29 % (20-50); Total Iron Binding Capacity 245 ug/dL (261-462); Transferrin 230 mg/dL (206-381)
== END ==
PROVIDERS: Family Provider Family Medicine; PCP Family Medicine; Referring Provider Family Medicine; Visit Provider Family Medicine
DX: R25.2 Cramp and spasm (principal); Z98.1 Arthrodesis status; Z96.89 Presence of other specified functional implants; M54.16 Radiculopathy, lumbar region; E61.1 Iron deficiency; D64.9 Anemia, unspecified; G89.29 Other chronic pain; Z79.1 Long term (current) use of non-steroidal anti-inflammatories (NSAID); M62.838 Other muscle spasm
CPT/HCPCS: 36415; 83540; 83550; 83735; 85045

== ENCOUNTER → 2025-09-30 14:15 | Outpatient (CLI) | payer MEDICARE, BC, SELFPAY ==
[2025-09-30 15:49] LABS: Add Manual Diff / Slide Review NO; Hematocrit 38.7 % (41-53); Hemoglobin 13.2 g/dL (13.5-17.5); Lymphocytes Absolute Auto 1200 /uL (1100-4500); Mean Corpuscular HGB Conc 34.0 % (30-36); Mean Corpuscular Hemoglobin 31.8 PG (26-34); Mean Corpuscular Volume 93.4 fL (80-100); Platelet Count 274 X10^3/uL (150-400)
[2025-09-30 16:52] LABS: HEMOLYSIS < 15 (0-50); Iron 104 ug/dL (49-181)
[2025-09-30 16:54] LABS: Alanine Aminotransferase 43 IU/L (<50); Albumin 4.4 g/dL (3.5-5.0); Albumin Globulin Ratio 1.8 (1.0-2.8); Alkaline Phosphatase 72 U/L (38-126); Blood Urea Nitrogen 25 mg/dL (9-20); Calcium 9.4 mg/dL (8.4-10.2); Carbon Dioxide 30 mmol/L (22-32); Chloride 101 mmol/L (98-107); Estimated Glomerular Filt Rate > 60 mL/min (>60); Globulin 2.5 g/dL (1.7-4.1); Glucose 91 mg/dL (70-99); HEMOLYSIS < 15 (0-50); Magnesium 2.2 mg/dL (1.6-2.3); Potassium 4.6 mmol/L (3.4-5.1); Sodium 137 mmol/L (137-145); Total Protein 6.9 g/dL (6.3-8.2)
[2025-09-30 17:04] LABS: Percent Iron Saturation 39 % (20-50); Total Iron Binding Capacity 269 ug/dL (261-462); Transferrin 233 mg/dL (206-381)
== END ==
PROVIDERS: Family Provider Family Medicine; PCP Family Medicine; Referring Provider Family Medicine; Visit Provider Family Medicine
DX: M51.9 Unspecified thoracic, thoracolumbar and lumbosacral intervertebral disc disorder (principal); R25.2 Cramp and spasm; M54.16 Radiculopathy, lumbar region; G89.29 Other chronic pain; M48.9 Spondylopathy, unspecified; M79.645 Pain in left finger(s); M25.561 Pain in right knee; M21.371 Foot drop, right foot; Z79.1 Long term (current) use of non-steroidal anti-inflammatories (NSAID); Z96.89 Presence of other specified functional implants; Z98.890 Other specified postprocedural states; Z98.1 Arthrodesis status; Z86.39 Personal history of other endocrine, nutritional and metabolic disease
CPT/HCPCS: 36415; 80053; 83540; 83550; 83735; 85025